=== PATIENT | female | born 1960 | race Caucasian/White ===

== ENCOUNTER 2019-01-24 16:29 | Inpatient (IN) | payer OTHER, MEDICAID ==
[2019-01-24 17:02] LABS: WHITE BLOOD COUNT 2.7 10^3/ul (4.8-10.8)
[2019-01-24 17:02] LABS: ADD MAN DIFF? NO; BASOPHILS % 1.1 % (0.0-2.0); HEMATOCRIT 42.6 % (37.0-47.0); HEMOGLOBIN 13.7 g/dl (12.0-16.0); LYMPHOCYTES % 38.5 % (15.0-51.0); MEAN CORPUSCULAR HEMOGLOBIN 31.7 pg (29.0-33.0); MEAN CORPUSCULAR HGB CONC 32.2 g/dl (32.0-37.0); MEAN CORPUSCULAR VOLUME 98.6 fl (82.0-101.0); MONOCYTE # 0.1 10^3/ul (0.3-0.9); MONOCYTES % 4.9 % (0.0-11.0); NEUTROPHIL # 1.5 10^3/ul (1.6-7.5); NEUTROPHILS % 55.1 % (39.0-77.0); PLATELET COUNT 151 10^3/UL (140-415); RED BLOOD COUNT 4.32 10^6/ul (4.20-5.40); RED CELL DISTRIBUTION WIDTH 15.7 % (11.5-14.5)
[2019-01-24 17:18] LABS: ANION GAP 9 (5-13); BLOOD UREA NITROGEN 14 mg/dl (7-20); CALCIUM 8.6 mg/dl (8.4-10.2); CARBON DIOXIDE 25 mmol/L (21-31); CHLORIDE 104 mmol/L (97-110); CREATININE 0.53 mg/dl (0.44-1.00); Estimated GFR > 60 mL/min (>60); GLUCOSE 114 mg/dl (70-220); POTASSIUM 4.7 mmol/L (3.5-5.1); SODIUM 138 mmol/L (135-144)
[2019-01-24 17:21] LABS: INR 0.96; PROTIME 12.9 Sec (11.9-14.9)
[2019-01-24 17:30] LABS: B-TYPE NATRIURETIC PEPTIDE 57 PG/ML (0-125); TROPONIN-I < 0.012 ng/ml (0.000-0.120)
[2019-01-24 18:01] LABS: PARTIAL THROMBOPLASTIN TIME 97.9 Sec (23.0-35.0)
[2019-01-24] MEDS: SOD CHLORIDE 0.9% 100 ML (18:11)
[2019-01-24] MEDS: IODIXANOL LOCM 100 ML BTL (18:11)
[2019-01-24 18:33] LABS: AADO2 Arterial 73.9 mmHg (7.0-24.0); Allen Test ACCEPTAB; Arterial Base Excess -3.8 mmol/L (-3.0-3); Arterial Blood Gas Oxygen Sat 91.7 mmHG (95.0-98.0); Arterial COHb 0.6 % (0.0-3.0); Arterial Fraction of Oxyhgb 90.9 % (93.0-99.0); Arterial HCO3 21.6 mmol/L (22.0-26.0); Arterial MetHb 0.3 % (0.0-1.5); Arterial pCO2 40.7 mmhg (35-45); MODE NASAL CANNULA; Site Right Radial
[2019-01-24] MEDS: LEVOFLOXACIN 750MG/D5W (PMX) 150 ML IVPB (18:42)
[2019-01-24] MEDS: FUROSEMIDE 40 MG INJ IV (18:43)
[2019-01-24] MEDS ORDERED: ACETAMINOPHEN 325 MG TAB PO (19:30)
[2019-01-24] MEDS ORDERED: ONDANSETRON 4 MG INJ IV (19:30)
[2019-01-24] MEDS: BENAZEPRIL 5 MG TAB PO (23:00)
[2019-01-24] MEDS ORDERED: ACETAMINOPHEN 500 MG TAB PO (23:00)
[2019-01-24] MEDS: AMLODIPINE 5 MG TAB PO (23:00)
[2019-01-24] MEDS: METOPROLOL 50 MG TAB PO (23:00)
[2019-01-24 23:59] LABS: LACTIC ACID 1.1 mmol/L (0.5-2.0)
[2019-01-25 00:12] LABS: IRON 94 ug/dl (35-150)
[2019-01-25 00:13] LABS: MAGNESIUM 1.7 mg/dl (1.7-2.5)
[2019-01-25 00:13] LABS: CREATINE KINASE 21 IU/L (23-200); LIPASE 30 U/L (23-300)
[2019-01-25] MEDS: DOCUSATE SODIUM 100 MG CAP PO ×3 (00:16→21:00)
[2019-01-25] MEDS: AMLODIPINE 5 MG TAB PO ×3 (00:16→21:00)
[2019-01-25] MEDS: FUROSEMIDE 40 MG INJ IV ×3 (00:16→18:29)
[2019-01-25] MEDS: BENAZEPRIL 5 MG TAB PO ×3 (00:16→21:00)
[2019-01-25] MEDS: METOPROLOL 50 MG TAB PO ×3 (00:17→21:00)
[2019-01-25 00:21] LABS: % IRON SATURATION 34 % SAT (22-52); TOTAL IRON BINDING CAPACITY 277 ug/dl (241-421)
[2019-01-25 00:24] LABS: CK INDEX 1.2; CK-MB 0.25 ng/ml (0.0-2.4); TROPONIN-I < 0.012 ng/ml (0.000-0.120)
[2019-01-25 00:43] LABS: THYROID STIMULATING HORMONE 0.368 MIU/L (0.465-4.680)
[2019-01-25] MEDS ORDERED: oxyCODONE (CR) 20 MG TAB [oxyCONTIN] PO (01:20)
[2019-01-25] MEDS: PANTOPRAZOLE (EC) 40 MG TAB PO (06:40)
[2019-01-25] MEDS: POLYETHYLENE GLYCOL 17 GM PACKET PO ×3 (09:00→21:31)
[2019-01-25] MEDS: MAGNESIUM HYDROXIDE 30ML CUP PO (09:00)
[2019-01-25] MEDS: ESCITALOPRAM 10 MG TAB PO (09:00)
[2019-01-25] MEDS ORDERED: FUROSEMIDE 20 MG TAB PO (09:00)
[2019-01-25] MEDS: oxyCODONE (CR) 20 MG TAB [oxyCONTIN] PO ×2 (09:37→21:31)
[2019-01-25] MEDS: POTASSIUM CHLORIDE (SR) 20 MEQ TAB PO (09:37)
[2019-01-25] MEDS: ANASTROZOLE 1 MG TAB PO (10:33)
[2019-01-25] MEDS: LIDOCAINE 1% (MPF) 5 ML VIAL (13:46)
[2019-01-25 17:36] LABS: FLD PMN% 3.2 %; FLD RBC 1000 /uL; FLD WBC 381 /cmm
[2019-01-25 17:51] LABS: FLD CLARITY CLOUDY; FLD COLOR YELLOW
[2019-01-25 17:51] LABS: FLD TYPE PLEURAL
[2019-01-25 17:52] LABS: FLD MN% 96.8 %
[2019-01-25] MEDS ORDERED: VANCOMYCIN 1 GM (PMX) 250 ML IVPB (21:00)
[2019-01-25] MEDS: MAGNESIUM SULFATE 2 GM/50 ML 50 ML IVPB (21:31)
[2019-01-25] MEDS: VANCOMYCIN HCL 1.5 GM in SOD CHLORIDE 0.9% 250 ML IVPB (23:46)
[2019-01-26] MEDS: VANCOMYCIN 750 MG (PMX) 250 ML IVPB ×3 (05:35→21:20)
[2019-01-26] MEDS: FUROSEMIDE 40 MG INJ IV ×2 (05:35→17:19)
[2019-01-26] MEDS: PANTOPRAZOLE (EC) 40 MG TAB PO (07:47)
[2019-01-26 08:27] LABS: ADD MAN DIFF? NO
[2019-01-26 08:31] LABS: ABNORMAL IP MESSAGE 1; BASOPHILS % 1.5 % (0.0-2.0); HEMATOCRIT 38.5 % (37.0-47.0); HEMOGLOBIN 12.7 g/dl (12.0-16.0); LYMPHOCYTES # 1.1 10^3/ul (0.8-2.9); LYMPHOCYTES % 55.2 % (15.0-51.0); MEAN CORPUSCULAR HEMOGLOBIN 32.8 pg (29.0-33.0); MEAN CORPUSCULAR VOLUME 99.5 fl (82.0-101.0); MONOCYTE # 0.2 10^3/ul (0.3-0.9); MONOCYTES % 11.9 % (0.0-11.0); NEUTROPHIL # 0.6 10^3/ul (1.6-7.5); NEUTROPHILS % 30.9 % (39.0-77.0); PLATELET COUNT 137 10^3/UL (140-415); RED BLOOD COUNT 3.87 10^6/ul (4.20-5.40); RED CELL DISTRIBUTION WIDTH 15.7 % (11.5-14.5)
[2019-01-26 08:31] LABS: WHITE BLOOD COUNT 1.9 10^3/ul (4.8-10.8)
[2019-01-26 08:37] LABS: POSITIVE DIFF @See below
[2019-01-26 08:44] LABS: ALANINE AMINOTRANSFERASE 31 IU/L (13-69); ALBUMIN/GLOBULIN RATIO 1.03; ALKALINE PHOSPHATASE 64 IU/L (42-121); ANION GAP 6 (5-13); ASPARTATE AMINO TRANSFERASE 43 IU/L (15-46); BILIRUBIN,INDIRECT 0.7 mg/dl (0-1.1); BILIRUBIN,TOTAL 0.7 mg/dl (0.2-1.3); BLOOD UREA NITROGEN 19 mg/dl (7-20); CALCIUM 8.1 mg/dl (8.4-10.2); CARBON DIOXIDE 32 mmol/L (21-31); CHLORIDE 100 mmol/L (97-110); CREATININE 0.65 mg/dl (0.44-1.00); Estimated GFR > 60 mL/min (>60); GLUCOSE 95 mg/dl (70-220); POTASSIUM 3.8 mmol/L (3.5-5.1); SODIUM 138 mmol/L (135-144); TOTAL PROTEIN 5.9 g/dl (6.1-8.1)
[2019-01-26] MEDS: POLYETHYLENE GLYCOL 17 GM PACKET PO ×3 (09:40→21:20)
[2019-01-26] MEDS: MAGNESIUM HYDROXIDE 30ML CUP PO (09:40)
[2019-01-26] MEDS: POTASSIUM CHLORIDE (SR) 20 MEQ TAB PO (09:41)
[2019-01-26] MEDS: METOPROLOL 50 MG TAB PO ×2 (09:41→21:00)
[2019-01-26] MEDS: DOCUSATE SODIUM 100 MG CAP PO ×2 (09:41→21:20)
[2019-01-26] MEDS: ESCITALOPRAM 10 MG TAB PO (09:41)
[2019-01-26] MEDS: oxyCODONE (CR) 20 MG TAB [oxyCONTIN] PO ×2 (09:44→21:21)
[2019-01-26] MEDS: ANASTROZOLE 1 MG TAB PO (09:46)
[2019-01-26] MEDS: MAGNESIUM SULFATE 2 GM/50 ML 50 ML IVPB (10:45)
[2019-01-26] MEDS: AMLODIPINE 5 MG TAB PO ×2 (12:20→21:00)
[2019-01-26] MEDS: BENAZEPRIL 5 MG TAB PO ×2 (12:30→21:00)
[2019-01-26 19:58] LABS: VANCOMYCIN,TROUGH 11.8 ug/ml (10.0-20.0)
[2019-01-26] MEDS: FILGRASTIM 300 MCG INJ SC (22:16)
[2019-01-27] MEDS: VANCOMYCIN 750 MG (PMX) 250 ML IVPB ×3 (05:39→21:14)
[2019-01-27] MEDS: FUROSEMIDE 40 MG INJ IV ×2 (06:00→18:47)
[2019-01-27 06:54] LABS: ADD MAN DIFF? NO
[2019-01-27 06:58] LABS: BASOPHIL # 0.1 10^3/ul (0.0-0.1); BASOPHILS % 0.5 % (0.0-2.0); HEMATOCRIT 37.3 % (37.0-47.0); HEMOGLOBIN 12.2 g/dl (12.0-16.0); LYMPHOCYTES # 1.2 10^3/ul (0.8-2.9); LYMPHOCYTES % 6.9 % (15.0-51.0); MEAN CORPUSCULAR HEMOGLOBIN 32.6 pg (29.0-33.0); MEAN CORPUSCULAR HGB CONC 32.7 g/dl (32.0-37.0); MEAN CORPUSCULAR VOLUME 99.7 fl (82.0-101.0); MEAN PLATELET VOLUME 9.9 fl (7.4-10.4); MONOCYTE # 0.4 10^3/ul (0.3-0.9); MONOCYTES % 2.2 % (0.0-11.0); NEUTROPHIL # 15.2 10^3/ul (1.6-7.5); NEUTROPHILS % 89.8 % (39.0-77.0); PLATELET COUNT 110 10^3/UL (140-415); RED BLOOD COUNT 3.74 10^6/ul (4.20-5.40); RED CELL DISTRIBUTION WIDTH 15.5 % (11.5-14.5)
[2019-01-27] MEDS: BENAZEPRIL 5 MG TAB PO (09:00)
[2019-01-27] MEDS: AMLODIPINE 5 MG TAB PO (09:27)
[2019-01-27] MEDS: POLYETHYLENE GLYCOL 17 GM PACKET PO ×3 (09:27→21:11)
[2019-01-27] MEDS: MAGNESIUM HYDROXIDE 30ML CUP PO (09:27)
[2019-01-27] MEDS: DOCUSATE SODIUM 100 MG CAP PO ×2 (09:27→21:00)
[2019-01-27] MEDS: POTASSIUM CHLORIDE (SR) 20 MEQ TAB PO (09:28)
[2019-01-27] MEDS: PANTOPRAZOLE (EC) 40 MG TAB PO (09:28)
[2019-01-27] MEDS: METOPROLOL 50 MG TAB PO (09:28)
[2019-01-27] MEDS: ESCITALOPRAM 10 MG TAB PO (09:28)
[2019-01-27] MEDS: ANASTROZOLE 1 MG TAB PO (09:38)
[2019-01-27] MEDS: MAGNESIUM SULFATE 2 GM/50 ML 50 ML IVPB (09:40)
[2019-01-27] MEDS: oxyCODONE (CR) 20 MG TAB [oxyCONTIN] PO ×2 (09:41→21:11)
[2019-01-27] MEDS: ONDANSETRON 4 MG TAB PO (14:34)
[2019-01-27] MEDS: FILGRASTIM 300 MCG INJ SC (17:00)
[2019-01-28] MEDS: VANCOMYCIN 750 MG (PMX) 250 ML IVPB (05:18)
[2019-01-28] MEDS: FUROSEMIDE 40 MG INJ IV ×2 (06:24→17:35)
[2019-01-28 06:30] LABS: ADD MAN DIFF? NO
[2019-01-28 06:51] LABS: ABNORMAL IP MESSAGE 1; BASOPHIL # 0.1 10^3/ul (0.0-0.1); BASOPHILS % 0.6 % (0.0-2.0); HEMATOCRIT 36.4 % (37.0-47.0); HEMOGLOBIN 11.5 g/dl (12.0-16.0); LYMPHOCYTES # 1.1 10^3/ul (0.8-2.9); LYMPHOCYTES % 13.5 % (15.0-51.0); MEAN CORPUSCULAR HEMOGLOBIN 32.5 pg (29.0-33.0); MEAN CORPUSCULAR HGB CONC 31.6 g/dl (32.0-37.0); MEAN CORPUSCULAR VOLUME 102.8 fl (82.0-101.0); MEAN PLATELET VOLUME 10.2 fl (7.4-10.4); MONOCYTE # 0.3 10^3/ul (0.3-0.9); MONOCYTES % 3.7 % (0.0-11.0); NEUTROPHIL # 6.4 10^3/ul (1.6-7.5); NEUTROPHILS % 81.7 % (39.0-77.0); PLATELET COUNT 91 10^3/UL (140-415); RED BLOOD COUNT 3.54 10^6/ul (4.20-5.40); RED CELL DISTRIBUTION WIDTH 15.4 % (11.5-14.5)
[2019-01-28 06:51] LABS: WHITE BLOOD COUNT 7.8 10^3/ul (4.8-10.8)
[2019-01-28 07:00] LABS: POSITIVE DIFF @See below
[2019-01-28] MEDS: PANTOPRAZOLE (EC) 40 MG TAB PO (07:38)
[2019-01-28] MEDS: DOCUSATE SODIUM 100 MG CAP PO ×2 (08:06→21:00)
[2019-01-28] MEDS: POTASSIUM CHLORIDE (SR) 20 MEQ TAB PO (08:06)
[2019-01-28] MEDS: oxyCODONE (CR) 20 MG TAB [oxyCONTIN] PO ×2 (08:07→21:42)
[2019-01-28] MEDS: MAGNESIUM SULFATE 2 GM/50 ML 50 ML IVPB (08:07)
[2019-01-28] MEDS: MAGNESIUM HYDROXIDE 30ML CUP PO (08:07)
[2019-01-28] MEDS: POLYETHYLENE GLYCOL 17 GM PACKET PO ×4 (08:07→21:00)
[2019-01-28] MEDS: ESCITALOPRAM 10 MG TAB PO (08:07)
[2019-01-28] MEDS: BENAZEPRIL 5 MG TAB PO ×2 (08:08→12:33)
[2019-01-28] MEDS: ANASTROZOLE 1 MG TAB PO (08:15)
[2019-01-28 15:16] LABS: TROPONIN-I < 0.012 ng/ml (0.000-0.120)
[2019-01-28 15:19] LABS: FREE T4 (FREE THYROXINE) 1.42 ng/dl (0.64-1.79)
[2019-01-28] MEDS: FILGRASTIM 300 MCG INJ SC (17:34)
[2019-01-29] MEDS: FUROSEMIDE 40 MG INJ IV ×2 (06:22→17:30)
[2019-01-29] MEDS: PANTOPRAZOLE (EC) 40 MG TAB PO (06:25)
[2019-01-29 06:46] LABS: ADD MAN DIFF? NO
[2019-01-29 06:51] LABS: BASOPHIL # 0.1 10^3/ul (0.0-0.1); BASOPHILS % 0.5 % (0.0-2.0); HEMATOCRIT 34.9 % (37.0-47.0); HEMOGLOBIN 11.3 g/dl (12.0-16.0); LYMPHOCYTES # 1.4 10^3/ul (0.8-2.9); LYMPHOCYTES % 10.7 % (15.0-51.0); MEAN CORPUSCULAR HEMOGLOBIN 32.7 pg (29.0-33.0); MEAN CORPUSCULAR HGB CONC 32.4 g/dl (32.0-37.0); MEAN CORPUSCULAR VOLUME 100.9 fl (82.0-101.0); MONOCYTE # 0.5 10^3/ul (0.3-0.9); MONOCYTES % 3.8 % (0.0-11.0); NEUTROPHIL # 10.9 10^3/ul (1.6-7.5); NEUTROPHILS % 83.9 % (39.0-77.0); PLATELET COUNT 104 10^3/UL (140-415); RED BLOOD COUNT 3.46 10^6/ul (4.20-5.40); RED CELL DISTRIBUTION WIDTH 15.6 % (11.5-14.5)
[2019-01-29 06:51] LABS: WHITE BLOOD COUNT 12.9 10^3/ul (4.8-10.8)
[2019-01-29] MEDS: oxyCODONE (CR) 20 MG TAB [oxyCONTIN] PO (08:04)
[2019-01-29] MEDS: ESCITALOPRAM 10 MG TAB PO (08:04)
[2019-01-29] MEDS: MAGNESIUM HYDROXIDE 30ML CUP PO (08:04)
[2019-01-29] MEDS: POLYETHYLENE GLYCOL 17 GM PACKET PO ×2 (08:04→12:10)
[2019-01-29] MEDS: DOCUSATE SODIUM 100 MG CAP PO (08:04)
[2019-01-29] MEDS: POTASSIUM CHLORIDE (SR) 20 MEQ TAB PO (08:04)
[2019-01-29] MEDS: ANASTROZOLE 1 MG TAB PO (08:09)
[2019-01-29] MEDS: ONDANSETRON 4 MG TAB PO (08:34)
[2019-01-29] MEDS: BARIUM SULF 2% 450 ML BTL (BERRY SMOOTHIE) PO (12:01)
[2019-01-29] MEDS: SOD CHLORIDE 0.9% 100 ML (12:54)
[2019-01-29] MEDS: IOHEXOL 300MG/ML 150 ML BTL (12:55)
[2019-01-29] MEDS: FILGRASTIM 300 MCG INJ SC (17:33)
== END 2019-01-29 18:46 | DRG 597 ==
LOC: TEL 20:16 → E/R 16:29
PROC: 4A033R1 Measurement of Arterial Saturation, Peripheral, Percutaneous Approach (ICD-10-PCS; 2019-01-24)
PROC: 0W993ZZ Drainage of Right Pleural Cavity, Percutaneous Approach (ICD-10-PCS; principal; 2019-01-25)
PROC: 0W9B3ZZ Drainage of Left Pleural Cavity, Percutaneous Approach (ICD-10-PCS; 2019-01-26)
PROC: 3E0234Z Introduction of Serum, Toxoid and Vaccine into Muscle, Percutaneous Approach (ICD-10-PCS; 2019-01-29)
DX: C50.912 Malignant neoplasm of unspecified site of left female breast (principal); I50.33 Acute on chronic diastolic (congestive) heart failure; C79.51 Secondary malignant neoplasm of bone; C78.7 Secondary malignant neoplasm of liver and intrahepatic bile duct; C78.00 Secondary malignant neoplasm of unspecified lung; J90 Pleural effusion, not elsewhere classified; E87.1 Hypo-osmolality and hyponatremia; M48.54XA Collapsed vertebra, not elsewhere classified, thoracic region, initial encounter for fracture; M84.559A Pathological fracture in neoplastic disease, hip, unspecified, initial encounter for fracture; D69.6 Thrombocytopenia, unspecified; D63.8 Anemia in other chronic diseases classified elsewhere; F41.9 Anxiety disorder, unspecified; F43.10 Post-traumatic stress disorder, unspecified; Z23 Encounter for immunization; R00.0 Tachycardia, unspecified; I11.0 Hypertensive heart disease with heart failure; E66.9 Obesity, unspecified; Z68.36 Body mass index [BMI] 36.0-36.9, adult; H52.10 Myopia, unspecified eye; D70.9 Neutropenia, unspecified; E88.09 Other disorders of plasma-protein metabolism, not elsewhere classified; I25.10 Atherosclerotic heart disease of native coronary artery without angina pectoris; E78.00 Pure hypercholesterolemia, unspecified; K21.9 Gastro-esophageal reflux disease without esophagitis; Z85.3 Personal history of malignant neoplasm of breast; M79.632 Pain in left forearm
CPT/HCPCS: 36415; 36600; 71045; 71275; 73510; 73600; 74177; 76705; 76942; 80048; 80053; 80202; 82042; 82550; 82553; 82803; 83540; 83605; 83690; 83735; 83880; 84439; 84443; 84484; 85025; 85610; 85730; 87040; 87070; 87102; 87116; 88104; 88305; 88341; 88342; 89051; 90686; 93005; 93306; 93971; 96374; 96375; 99291-25

== ENCOUNTER 2019-02-11 13:05 | Inpatient (IN) | payer OTHER ==
[2019-02-11 14:05] LABS: WHITE BLOOD COUNT 1.2 10^3/ul (4.8-10.8)
[2019-02-11 14:05] LABS: ABNORMAL IP MESSAGE 1; HEMATOCRIT 35.1 % (37.0-47.0); HEMOGLOBIN 11.5 g/dl (12.0-16.0); MEAN CORPUSCULAR HEMOGLOBIN 32.3 pg (29.0-33.0); MEAN CORPUSCULAR HGB CONC 32.8 g/dl (32.0-37.0); MEAN CORPUSCULAR VOLUME 98.6 fl (82.0-101.0); MEAN PLATELET VOLUME 9.7 fl (7.4-10.4); PLATELET COUNT 89 10^3/UL (140-415); POSITIVE DIFF @See below; RED BLOOD COUNT 3.56 10^6/ul (4.20-5.40); RED CELL DISTRIBUTION WIDTH 15.2 % (11.5-14.5)
[2019-02-11 14:06] LABS: ADD MAN DIFF? YES
[2019-02-11 14:23] LABS: ALANINE AMINOTRANSFERASE 23 IU/L (13-69); ALBUMIN 2.7 g/dl (3.3-4.9); ALBUMIN/GLOBULIN RATIO 1.03; ALKALINE PHOSPHATASE 73 IU/L (42-121); ANION GAP 6 (5-13); ASPARTATE AMINO TRANSFERASE 39 IU/L (15-46); BILIRUBIN,INDIRECT 0.6 mg/dl (0-1.1); BILIRUBIN,TOTAL 0.6 mg/dl (0.2-1.3); BLOOD UREA NITROGEN 13 mg/dl (7-20); CALCIUM 8.5 mg/dl (8.4-10.2); CARBON DIOXIDE 26 mmol/L (21-31); CHLORIDE 103 mmol/L (97-110); CREATININE 0.51 mg/dl (0.44-1.00); Estimated GFR > 60 mL/min (>60); GLUCOSE 121 mg/dl (70-220); POTASSIUM 4.5 mmol/L (3.5-5.1); SODIUM 135 mmol/L (135-144); TOTAL PROTEIN 5.3 g/dl (6.1-8.1)
[2019-02-11 14:24] LABS: INR 1.02; PROTIME 13.5 Sec (11.9-14.9); PT RATIO 1.1
[2019-02-11 14:29] LABS: ANISOCYTOSIS 1+ (0-0); BAND NEUTROPHILS % (M) 8 % (0-4); ERYTHROBLAST% (NRBC) (M) 1 % (0-0); LYMPHOCYTES #M 0.5 10^3/ul (0.8-2.9); LYMPHOCYTES % (M) 48 % (15-51); METAMYELOCYTES %M 1 % (0-0); MICROCYTOSIS 1+ (0-0); MONOCYTE #M 0.1 10^3/ul (0.3-0.9); MONOCYTES % (M) 15 % (0-11); PLATELET ESTIMATE DECREASED; POLYCHROMASIA 3+ (0-0); REACTIVE LYMPHOCYTES% (M) 5 % (0-0); SEG NEUT #M 0.3 10^3/ul (1.6-7.5); SEGMENTED NEUTROPHILS (M) % 23 % (39-77); SMUDGE%M 7 % (0-0)
[2019-02-11] MEDS ORDERED: ONDANSETRON 4 MG INJ IV (15:00)
[2019-02-11] MEDS ORDERED: ACETAMINOPHEN 325 MG TAB PO (15:00)
[2019-02-11] MEDS: ONDANSETRON 4 MG INJ IV (15:14)
[2019-02-11] MEDS: morphine 4 MG/ML VIAL IV (15:15)
[2019-02-11] MEDS: LIDOCAINE 1% (MPF) 5 ML VIAL (16:17)
[2019-02-11] MEDS: SODIUM CHLORIDE 0.9% 1L BAG IV* (17:17)
[2019-02-11] MEDS: CEFEPIME 2GM/50 ML (PMX) 50 ML IVPB (17:17)
[2019-02-11 17:42] LABS: LACTIC ACID 1.3 mmol/L (0.5-2.0)
[2019-02-11] MEDS: VANCOMYCIN 1 GM (PMX) 250 ML IVPB (18:33)
[2019-02-11] MEDS: AMLODIPINE 5 MG TAB PO (22:30)
[2019-02-11] MEDS: BENAZEPRIL 5 MG TAB PO (22:30)
[2019-02-11] MEDS: DOCUSATE SODIUM 100 MG CAP PO (22:42)
[2019-02-11] MEDS: oxyCODONE (CR) 20 MG TAB [oxyCONTIN] PO (22:43)
[2019-02-11] MEDS: POLYETHYLENE GLYCOL 17 GM PACKET PO (22:43)
[2019-02-11 23:27] LABS: IRON 75 ug/dl (35-150)
[2019-02-11 23:28] LABS: MAGNESIUM 1.8 mg/dl (1.7-2.5)
[2019-02-11 23:28] LABS: AMYLASE 32 U/L (11-123)
[2019-02-11 23:35] LABS: B-TYPE NATRIURETIC PEPTIDE 98 PG/ML (0-125)
[2019-02-11 23:36] LABS: % IRON SATURATION 33 % SAT (22-52); TOTAL IRON BINDING CAPACITY 224 ug/dl (241-421)
[2019-02-12 00:25] LABS: D-DIMER > 10000.00 ng/ml (<460)
[2019-02-12 05:13] LABS: ADD MAN DIFF? NO
[2019-02-12 05:14] LABS: WHITE BLOOD COUNT 1.3 10^3/ul (4.8-10.8)
[2019-02-12 05:14] LABS: ABNORMAL IP MESSAGE 1; BASOPHILS % 2.3 % (0.0-2.0); HEMATOCRIT 34.6 % (37.0-47.0); HEMOGLOBIN 11.1 g/dl (12.0-16.0); LYMPHOCYTES # 0.8 10^3/ul (0.8-2.9); LYMPHOCYTES % 62.1 % (15.0-51.0); MEAN CORPUSCULAR HGB CONC 32.1 g/dl (32.0-37.0); MEAN CORPUSCULAR VOLUME 99.7 fl (82.0-101.0); MEAN PLATELET VOLUME 10.4 fl (7.4-10.4); MONOCYTE # 0.3 10^3/ul (0.3-0.9); MONOCYTES % 19.7 % (0.0-11.0); NEUTROPHIL # 0.2 10^3/ul (1.6-7.5); NEUTROPHILS % 15.9 % (39.0-77.0); PLATELET COUNT 96 10^3/UL (140-415); RED BLOOD COUNT 3.47 10^6/ul (4.20-5.40); RED CELL DISTRIBUTION WIDTH 15.6 % (11.5-14.5)
[2019-02-12 05:27] LABS: POSITIVE DIFF @See below
[2019-02-12] MEDS: PANTOPRAZOLE (EC) 40 MG TAB PO (05:39)
[2019-02-12] MEDS: BENAZEPRIL 5 MG TAB PO ×2 (09:00→20:21)
[2019-02-12] MEDS: AMLODIPINE 5 MG TAB PO ×2 (09:00→20:21)
[2019-02-12] MEDS: DOCUSATE SODIUM 100 MG CAP PO ×2 (10:05→20:20)
[2019-02-12] MEDS: POLYETHYLENE GLYCOL 17 GM PACKET PO ×2 (10:05→20:21)
[2019-02-12] MEDS: POTASSIUM CHLORIDE (SR) 20 MEQ TAB PO (10:05)
[2019-02-12] MEDS: oxyCODONE (CR) 20 MG TAB [oxyCONTIN] PO ×2 (10:05→20:22)
[2019-02-12] MEDS: FUROSEMIDE 20 MG TAB PO (10:06)
[2019-02-12] MEDS: ESCITALOPRAM 10 MG TAB PO (10:06)
[2019-02-12] MEDS: ANASTROZOLE 1 MG TAB PO (10:08)
[2019-02-12] MEDS: MAGNESIUM HYDROXIDE 30ML CUP PO (10:11)
[2019-02-12] MEDS: ONDANSETRON 4 MG TAB PO (10:14)
[2019-02-12] MEDS: LIDOCAINE 1% (MPF) 5 ML VIAL (12:50)
[2019-02-12 16:16] LABS: ADD UMIC YES; UR ASCORBIC ACID 40 mg/dL (NEGATIVE); UR BILIRUBIN (Dip) NEGATIVE (NEGATIVE); UR BLOOD (Dip) NEGATIVE (NEGATIVE); UR CLARITY SLIGHTLY CLOUDY (CLEAR); UR COLOR AMBER (YELLOW); UR GLUCOSE (Dip) NEGATIVE (NEGATIVE); UR KETONES (Dip) NEGATIVE (NEGATIVE); UR LEUKOCYTE ESTERASE (Dip) TRACE Leu/ul (NEGATIVE); UR MUCUS MANY /HPF (NONE SEEN); UR NITRITE (Dip) NEGATIVE (NEGATIVE); UR RBC 2 /HPF (0-5); UR SPECIFIC GRAVITY (Dip) 1.026 (1.003-1.030); UR TOTAL PROTEIN (Dip) NEGATIVE (NEGATIVE); UR UROBILINOGEN (Dip) 1+ mg/dL (NEGATIVE); UR WBC 11 /HPF (0-5)
[2019-02-12] MEDS: FILGRASTIM 300 MCG INJ SC (18:43)
[2019-02-12] MEDS: FUROSEMIDE 20 MG INJ IV (20:20)
[2019-02-13 05:31] LABS: WHITE BLOOD COUNT 3.5 10^3/ul (4.8-10.8)
[2019-02-13 05:31] LABS: ABNORMAL IP MESSAGE 1; HEMATOCRIT 31.7 % (37.0-47.0); HEMOGLOBIN 10.4 g/dl (12.0-16.0); MEAN CORPUSCULAR HEMOGLOBIN 32.2 pg (29.0-33.0); MEAN CORPUSCULAR HGB CONC 32.8 g/dl (32.0-37.0); MEAN CORPUSCULAR VOLUME 98.1 fl (82.0-101.0); MEAN PLATELET VOLUME 10.1 fl (7.4-10.4); PLATELET COUNT 81 10^3/UL (140-415); RED BLOOD COUNT 3.23 10^6/ul (4.20-5.40); RED CELL DISTRIBUTION WIDTH 15.7 % (11.5-14.5)
[2019-02-13 06:00] LABS: POSITIVE DIFF @See below
[2019-02-13 06:01] LABS: ADD MAN DIFF? YES
[2019-02-13] MEDS: FUROSEMIDE 20 MG INJ IV ×2 (06:31→18:00)
[2019-02-13 07:47] LABS: ANISOCYTOSIS 2+ (0-0); BAND NEUTROPHILS #M 1.7 10^3/ul (0.0-0.6); BAND NEUTROPHILS % (M) 49 % (0-4); LYMPHOCYTES #M 0.7 10^3/ul (0.8-2.9); LYMPHOCYTES % (M) 21 % (15-51); MICROCYTOSIS 2+ (0-0); MONOCYTE #M 0.2 10^3/ul (0.3-0.9); MONOCYTES % (M) 8 % (0-11); PLATELET ESTIMATE DECREASED; POIKILOCYTOSIS 1+ (0-0); POLYCHROMASIA 1+ (0-0); REACTIVE LYMPHOCYTES% (M) 2 % (0-0); SEG NEUT #M 0.8 10^3/ul (1.6-7.5); SEGMENTED NEUTROPHILS (M) % 20 % (39-77); SMUDGE%M 5 % (0-0); SPHEROCYTES 1+ (0-0)
[2019-02-13] MEDS: PANTOPRAZOLE (EC) 40 MG TAB PO (09:08)
[2019-02-13] MEDS: POTASSIUM CHLORIDE (SR) 20 MEQ TAB PO (09:11)
[2019-02-13] MEDS: ESCITALOPRAM 10 MG TAB PO (09:13)
[2019-02-13] MEDS: DOCUSATE SODIUM 100 MG CAP PO ×2 (09:13→21:05)
[2019-02-13] MEDS: MAGNESIUM HYDROXIDE 30ML CUP PO (09:16)
[2019-02-13] MEDS: POLYETHYLENE GLYCOL 17 GM PACKET PO ×2 (09:18→21:00)
[2019-02-13] MEDS: ANASTROZOLE 1 MG TAB PO (09:22)
[2019-02-13] MEDS: BENAZEPRIL 5 MG TAB PO ×2 (09:26→21:00)
[2019-02-13] MEDS: AMLODIPINE 5 MG TAB PO (09:28)
[2019-02-13] MEDS: oxyCODONE (CR) 20 MG TAB [oxyCONTIN] PO ×2 (09:47→21:05)
[2019-02-13] MEDS: ONDANSETRON 4 MG TAB PO (16:51)
[2019-02-13] MEDS: FILGRASTIM-AAFI 300 MCG/0.5 ML SYRINGE SC (16:54)
[2019-02-13 20:06] LABS: FREE T4 (FREE THYROXINE) 1.54 ng/dl (0.64-1.79)
[2019-02-13] MEDS: FUROSEMIDE 40 MG INJ IV (21:05)
[2019-02-13] MEDS: ALBUMIN HUMAN 25% 50 ML IV (21:08)
[2019-02-14 02:13] LABS: TROPONIN-I < 0.012 ng/ml (0.000-0.120)
[2019-02-14 05:29] LABS: ABNORMAL IP MESSAGE 1; HEMATOCRIT 30.4 % (37.0-47.0); HEMOGLOBIN 9.8 g/dl (12.0-16.0); MEAN CORPUSCULAR HEMOGLOBIN 32.2 pg (29.0-33.0); MEAN CORPUSCULAR HGB CONC 32.2 g/dl (32.0-37.0); MEAN PLATELET VOLUME 10.4 fl (7.4-10.4); PLATELET COUNT 87 10^3/UL (140-415); RED BLOOD COUNT 3.04 10^6/ul (4.20-5.40); RED CELL DISTRIBUTION WIDTH 15.9 % (11.5-14.5)
[2019-02-14 05:29] LABS: WHITE BLOOD COUNT 4.7 10^3/ul (4.8-10.8)
[2019-02-14 05:45] LABS: TROPONIN-I < 0.012 ng/ml (0.000-0.120)
[2019-02-14 05:46] LABS: ADD MAN DIFF? YES; POSITIVE DIFF @See below
[2019-02-14] MEDS: FUROSEMIDE 40 MG INJ IV ×2 (06:00→18:05)
[2019-02-14] MEDS: PANTOPRAZOLE (EC) 40 MG TAB PO (06:00)
[2019-02-14] MEDS ORDERED: FUROSEMIDE 40 MG INJ IV (06:00)
[2019-02-14] MEDS: AMLODIPINE 5 MG TAB PO (09:00)
[2019-02-14] MEDS: BENAZEPRIL 5 MG TAB PO ×2 (09:00→21:00)
[2019-02-14] MEDS: POLYETHYLENE GLYCOL 17 GM PACKET PO ×2 (09:00→21:00)
[2019-02-14] MEDS: ESCITALOPRAM 10 MG TAB PO (09:46)
[2019-02-14] MEDS: DOCUSATE SODIUM 100 MG CAP PO ×2 (09:46→21:00)
[2019-02-14] MEDS: POTASSIUM CHLORIDE (SR) 20 MEQ TAB PO (09:46)
[2019-02-14] MEDS: ONDANSETRON 4 MG TAB PO (09:47)
[2019-02-14] MEDS: oxyCODONE (CR) 20 MG TAB [oxyCONTIN] PO ×2 (09:47→21:41)
[2019-02-14 09:50] LABS: ANISOCYTOSIS 1+ (0-0); BAND NEUTROPHILS #M 2.4 10^3/ul (0.0-0.6); BAND NEUTROPHILS % (M) 53 % (0-4); BURR CELLS 1+ (0-0); GIANT THROMBO% (M) 4 % (0-0); LYMPHOCYTES #M 0.7 10^3/ul (0.8-2.9); LYMPHOCYTES % (M) 16 % (15-51); METAMYELOCYTES #M 0.1 10^3/ul (0.0-0.0); METAMYELOCYTES %M 3 % (0-0); MICROCYTOSIS 1+ (0-0); MONOCYTE #M 0.1 10^3/ul (0.3-0.9); MONOCYTES % (M) 4 % (0-11); MYELOCYTES #M 0.4 10^3/ul (0.0-0.0); MYELOCYTES % (M) 9 % (0-0); OVALOCYTES 1+ (0-0); PLATELET ESTIMATE SIG DECREASED; POIKILOCYTOSIS 1+ (0-0); POLYCHROMASIA 3+ (0-0); REACTIVE LYMPHOCYTES #M 0.1 10^3/ul (0.0-0.0); REACTIVE LYMPHOCYTES% (M) 4 % (0-0); SEG NEUT #M 0.6 10^3/ul (1.6-7.5); SEGMENTED NEUTROPHILS (M) % 11 % (39-77); SMUDGE%M 13 % (0-0); TOXIC GRANULATION 2+ (0-0)
[2019-02-14] MEDS: ANASTROZOLE 1 MG TAB PO (09:50)
[2019-02-14] MEDS: MAGNESIUM HYDROXIDE 30ML CUP PO (09:50)
[2019-02-14 12:37] LABS: TROPONIN-I < 0.012 ng/ml (0.000-0.120)
[2019-02-14] MEDS: ALBUMIN HUMAN 25% 50 ML IV (21:35)
[2019-02-15 05:36] LABS: ABNORMAL IP MESSAGE 1; HEMATOCRIT 29.1 % (37.0-47.0); HEMOGLOBIN 9.5 g/dl (12.0-16.0); MEAN CORPUSCULAR HEMOGLOBIN 32.1 pg (29.0-33.0); MEAN CORPUSCULAR HGB CONC 32.6 g/dl (32.0-37.0); MEAN CORPUSCULAR VOLUME 98.3 fl (82.0-101.0); MEAN PLATELET VOLUME 10.3 fl (7.4-10.4); PLATELET COUNT 88 10^3/UL (140-415); RED BLOOD COUNT 2.96 10^6/ul (4.20-5.40); RED CELL DISTRIBUTION WIDTH 15.8 % (11.5-14.5)
[2019-02-15 05:43] LABS: ADD MAN DIFF? YES; POSITIVE DIFF @See below
[2019-02-15] MEDS: PANTOPRAZOLE (EC) 40 MG TAB PO (05:52)
[2019-02-15] MEDS: METOLAZONE 2.5 MG TAB PO ×2 (05:52→20:12)
[2019-02-15] MEDS: FUROSEMIDE 40 MG INJ IV ×2 (06:28→17:47)
[2019-02-15 08:40] LABS: ANISOCYTOSIS 1+ (0-0); BAND NEUTROPHILS #M 1.8 10^3/ul (0.0-0.6); BAND NEUTROPHILS % (M) 46 % (0-4); BASOPHILS % (M) 1 % (0-2); LYMPHOCYTES #M 0.8 10^3/ul (0.8-2.9); LYMPHOCYTES % (M) 20 % (15-51); METAMYELOCYTES %M 1 % (0-0); MICROCYTOSIS 1+ (0-0); MONOCYTE #M 0.2 10^3/ul (0.3-0.9); MONOCYTES % (M) 5 % (0-11); MYELOCYTES % (M) 1 % (0-0); PLATELET ESTIMATE DECREASED; POLYCHROMASIA 2+ (0-0); REACTIVE LYMPHOCYTES #M 0.4 10^3/ul (0.0-0.0); REACTIVE LYMPHOCYTES% (M) 10 % (0-0); SEG NEUT #M 0.7 10^3/ul (1.6-7.5); SEGMENTED NEUTROPHILS (M) % 16 % (39-77); SMUDGE%M 6 % (0-0); SPHEROCYTES 1+ (0-0); TOXIC GRANULATION 1+ (0-0)
[2019-02-15] MEDS: MAGNESIUM HYDROXIDE 30ML CUP PO (08:53)
[2019-02-15] MEDS: ESCITALOPRAM 10 MG TAB PO (08:53)
[2019-02-15] MEDS: POLYETHYLENE GLYCOL 17 GM PACKET PO ×2 (08:53→20:13)
[2019-02-15] MEDS: oxyCODONE (CR) 20 MG TAB [oxyCONTIN] PO ×2 (08:54→20:12)
[2019-02-15] MEDS: POTASSIUM CHLORIDE (SR) 20 MEQ TAB PO (08:54)
[2019-02-15] MEDS: DOCUSATE SODIUM 100 MG CAP PO ×2 (08:54→20:13)
[2019-02-15] MEDS: BENAZEPRIL 5 MG TAB PO ×2 (08:58→20:14)
[2019-02-15] MEDS: ANASTROZOLE 1 MG TAB PO (09:00)
[2019-02-15] MEDS: ALBUMIN HUMAN 25% 50 ML IV (17:02)
[2019-02-15] MEDS: SPIRONOLACTONE 50 MG TAB PO (19:09)
[2019-02-16 05:20] LABS: WHITE BLOOD COUNT 4.1 10^3/ul (4.8-10.8)
[2019-02-16 05:20] LABS: HEMATOCRIT 29.7 % (37.0-47.0); HEMOGLOBIN 9.8 g/dl (12.0-16.0); MEAN CORPUSCULAR HEMOGLOBIN 31.9 pg (29.0-33.0); MEAN CORPUSCULAR VOLUME 96.7 fl (82.0-101.0); MEAN PLATELET VOLUME 9.8 fl (7.4-10.4); PLATELET COUNT 106 10^3/UL (140-415); RED BLOOD COUNT 3.07 10^6/ul (4.20-5.40); RED CELL DISTRIBUTION WIDTH 15.8 % (11.5-14.5)
[2019-02-16 05:46] LABS: ADD MAN DIFF? YES; ALANINE AMINOTRANSFERASE 22 IU/L (13-69); ALBUMIN 2.8 g/dl (3.3-4.9); ALBUMIN/GLOBULIN RATIO 1.16; ALKALINE PHOSPHATASE 67 IU/L (42-121); ANION GAP 8 (5-13); ASPARTATE AMINO TRANSFERASE 32 IU/L (15-46); BILIRUBIN,INDIRECT 0.5 mg/dl (0-1.1); BILIRUBIN,TOTAL 0.5 mg/dl (0.2-1.3); BLOOD UREA NITROGEN 13 mg/dl (7-20); CALCIUM 8.2 mg/dl (8.4-10.2); CARBON DIOXIDE 34 mmol/L (21-31); CHLORIDE 90 mmol/L (97-110); CREATININE 0.66 mg/dl (0.44-1.00); Estimated GFR > 60 mL/min (>60); GLUCOSE 99 mg/dl (70-220); POSITIVE DIFF @See below; SODIUM 132 mmol/L (135-144); TOTAL PROTEIN 5.2 g/dl (6.1-8.1)
[2019-02-16] MEDS: FUROSEMIDE 40 MG INJ IV ×2 (06:28→18:02)
[2019-02-16 07:36] LABS: ANISOCYTOSIS 2+ (0-0); BAND NEUTROPHILS #M 1.1 10^3/ul (0.0-0.6); BAND NEUTROPHILS % (M) 28 % (0-4); ERYTHROBLAST% (NRBC) (M) 3 % (0-0); LYMPHOCYTES #M 0.7 10^3/ul (0.8-2.9); LYMPHOCYTES % (M) 19 % (15-51); MICROCYTOSIS 2+ (0-0); MONOCYTE #M 0.3 10^3/ul (0.3-0.9); MONOCYTES % (M) 9 % (0-11); MYELOCYTES % (M) 2 % (0-0); OVALOCYTES 1+ (0-0); PLATELET ESTIMATE DECREASED; POIKILOCYTOSIS 1+ (0-0); POLYCHROMASIA 3+ (0-0); REACTIVE LYMPHOCYTES #M 0.5 10^3/ul (0.0-0.0); REACTIVE LYMPHOCYTES% (M) 13 % (0-0); SEG NEUT #M 1.2 10^3/ul (1.6-7.5); SEGMENTED NEUTROPHILS (M) % 29 % (39-77); SMUDGE%M 13 % (0-0); STOMATOCYTES 1+ (0-0)
[2019-02-16] MEDS: DOCUSATE SODIUM 100 MG CAP PO ×2 (08:36→20:46)
[2019-02-16] MEDS: oxyCODONE (CR) 20 MG TAB [oxyCONTIN] PO ×2 (08:36→20:53)
[2019-02-16] MEDS: POLYETHYLENE GLYCOL 17 GM PACKET PO ×2 (08:36→21:00)
[2019-02-16] MEDS: ESCITALOPRAM 10 MG TAB PO (08:37)
[2019-02-16] MEDS: PANTOPRAZOLE (EC) 40 MG TAB PO (08:37)
[2019-02-16] MEDS: POTASSIUM CHLORIDE (SR) 20 MEQ TAB PO (08:38)
[2019-02-16] MEDS: BENAZEPRIL 5 MG TAB PO ×2 (08:38→20:48)
[2019-02-16] MEDS: SPIRONOLACTONE 50 MG TAB PO (08:39)
[2019-02-16] MEDS: METOLAZONE 2.5 MG TAB PO ×2 (08:40→20:47)
[2019-02-16] MEDS: ANASTROZOLE 1 MG TAB PO (08:42)
[2019-02-16] MEDS: MAGNESIUM HYDROXIDE 30ML CUP PO (08:45)
[2019-02-16] MEDS: IOHEXOL 300MG/ML 150 ML BTL (11:25)
[2019-02-16] MEDS: SOD CHLORIDE 0.9% 100 ML (11:25)
[2019-02-16] MEDS: ACETAMINOPHEN 500 MG TAB PO (14:29)
[2019-02-17] MEDS: FUROSEMIDE 40 MG INJ IV ×2 (05:34→17:40)
[2019-02-17] MEDS: PANTOPRAZOLE (EC) 40 MG TAB PO (08:31)
[2019-02-17] MEDS: oxyCODONE (CR) 20 MG TAB [oxyCONTIN] PO (09:14)
[2019-02-17] MEDS: ANASTROZOLE 1 MG TAB PO (09:15)
[2019-02-17] MEDS: METOLAZONE 2.5 MG TAB PO ×2 (09:20→20:47)
[2019-02-17] MEDS: POTASSIUM CHLORIDE (SR) 20 MEQ TAB PO ×3 (11:09→20:59)
[2019-02-17] MEDS: SPIRONOLACTONE 50 MG TAB PO (11:10)
[2019-02-17] MEDS: ESCITALOPRAM 10 MG TAB PO (11:10)
[2019-02-17] MEDS: BENAZEPRIL 5 MG TAB PO ×2 (11:20→20:48)
[2019-02-17] MEDS: DOCUSATE SODIUM 100 MG CAP PO ×2 (11:21→20:47)
[2019-02-17] MEDS: POLYETHYLENE GLYCOL 17 GM PACKET PO ×2 (11:21→20:59)
[2019-02-17] MEDS: MAGNESIUM HYDROXIDE 30ML CUP PO (11:21)
[2019-02-17 12:46] LABS: MAGNESIUM 1.6 mg/dl (1.7-2.5)
[2019-02-17] MEDS: ONDANSETRON 4 MG TAB PO (14:01)
[2019-02-17] MEDS: MAGNESIUM SULFATE 2 GM/50 ML 50 ML IVPB (15:42)
[2019-02-17] MEDS: ALBUTEROL/IPRATROPIUM (NEB) 3 ML AMP HHN (16:09)
[2019-02-17] MEDS: oxyCODONE (CR) 10 MG TAB [oxyCONTIN] PO (20:48)
[2019-02-17] MEDS: ONDANSETRON 4 MG INJ IV (20:50)
[2019-02-18] MEDS: ONDANSETRON 4 MG INJ IV (05:44)
[2019-02-18] MEDS: FUROSEMIDE 40 MG INJ IV ×2 (05:44→17:36)
[2019-02-18] MEDS: PANTOPRAZOLE (EC) 40 MG TAB PO (05:44)
[2019-02-18 06:13] LABS: ABNORMAL IP MESSAGE 1; HEMATOCRIT 32.4 % (37.0-47.0); HEMOGLOBIN 10.7 g/dl (12.0-16.0); MEAN CORPUSCULAR HEMOGLOBIN 31.6 pg (29.0-33.0); MEAN CORPUSCULAR VOLUME 95.6 fl (82.0-101.0); MEAN PLATELET VOLUME 9.5 fl (7.4-10.4); NUCLEATED RED BLOOD CELLS% 2.4 /100WBC (0.0-0.0); PLATELET COUNT 138 10^3/UL (140-415); RED BLOOD COUNT 3.39 10^6/ul (4.20-5.40); RED CELL DISTRIBUTION WIDTH 16.5 % (11.5-14.5)
[2019-02-18 06:13] LABS: WHITE BLOOD COUNT 4.6 10^3/ul (4.8-10.8)
[2019-02-18 06:19] LABS: ADD MAN DIFF? YES; POSITIVE DIFF @See below
[2019-02-18 06:43] LABS: ALANINE AMINOTRANSFERASE 20 IU/L (13-69); ALBUMIN 2.8 g/dl (3.3-4.9); ALBUMIN/GLOBULIN RATIO 1.16; ALKALINE PHOSPHATASE 62 IU/L (42-121); ASPARTATE AMINO TRANSFERASE 34 IU/L (15-46); BILIRUBIN,INDIRECT 0.7 mg/dl (0-1.1); BILIRUBIN,TOTAL 0.7 mg/dl (0.2-1.3); BLOOD UREA NITROGEN 9 mg/dl (7-20); CALCIUM 8.2 mg/dl (8.4-10.2); CHLORIDE 82 mmol/L (97-110); CHOL/HDL RATIO 6.2 RATIO; CHOLESTEROL 131 mg/dl (100-200); CREATININE 0.63 mg/dl (0.44-1.00); Estimated GFR > 60 mL/min (>60); GLUCOSE 99 mg/dl (70-220); HDL CHOLESTEROL 21 mg/dl (37-92); LDL CHOLESTEROL,CALCULATED 74 mg/dl; SODIUM 129 mmol/L (135-144); TOTAL PROTEIN 5.2 g/dl (6.1-8.1); TRIGLYCERIDES 178 mg/dl (0-149)
[2019-02-18 06:49] LABS: ANION GAP 9 (5-13)
[2019-02-18 06:51] LABS: CARBON DIOXIDE 38 mmol/L (21-31)
[2019-02-18 06:53] LABS: POTASSIUM 2.9 mmol/L (3.5-5.1)
[2019-02-18] MEDS: POTASSIUM CHLORIDE (SR) 20 MEQ TAB PO ×5 (08:58→20:42)
[2019-02-18] MEDS: MAGNESIUM HYDROXIDE 30ML CUP PO (08:58)
[2019-02-18] MEDS: DOCUSATE SODIUM 100 MG CAP PO ×2 (08:58→20:41)
[2019-02-18] MEDS: POLYETHYLENE GLYCOL 17 GM PACKET PO ×2 (08:58→20:41)
[2019-02-18] MEDS: oxyCODONE (CR) 10 MG TAB [oxyCONTIN] PO ×2 (08:59→20:41)
[2019-02-18] MEDS: BENAZEPRIL 5 MG TAB PO (08:59)
[2019-02-18] MEDS: MAGNESIUM SULFATE 2 GM/50 ML 50 ML IVPB (08:59)
[2019-02-18] MEDS: ESCITALOPRAM 10 MG TAB PO (08:59)
[2019-02-18] MEDS: SPIRONOLACTONE 50 MG TAB PO (09:01)
[2019-02-18] MEDS: METOLAZONE 2.5 MG TAB PO ×2 (09:01→20:42)
[2019-02-18] MEDS: ANASTROZOLE 1 MG TAB PO (09:09)
[2019-02-18] MEDS: ONDANSETRON 4 MG TAB PO (09:11)
[2019-02-18 09:23] LABS: ANISOCYTOSIS 1+ (0-0); BAND NEUTROPHILS #M 0.3 10^3/ul (0.0-0.6); BAND NEUTROPHILS % (M) 7 % (0-4); BASOPHILS % (M) 1 % (0-2); ERYTHROBLAST% (NRBC) (M) 2 % (0-0); GIANT THROMBO% (M) 4 % (0-0); LYMPHOCYTES #M 0.7 10^3/ul (0.8-2.9); LYMPHOCYTES % (M) 16 % (15-51); METAMYELOCYTES %M 1 % (0-0); MICROCYTOSIS 1+ (0-0); MONOCYTE #M 1.5 10^3/ul (0.3-0.9); MONOCYTES % (M) 34 % (0-11); MYELOCYTES % (M) 1 % (0-0); OVALOCYTES 1+ (0-0); PLATELET ESTIMATE DECREASED; POLYCHROMASIA 2+ (0-0); PROMYELOCYTES % (M) 1 % (0-0); SEG NEUT #M 1.8 10^3/ul (1.6-7.5); SEGMENTED NEUTROPHILS (M) % 39 % (39-77); SMUDGE%M 33 % (0-0)
[2019-02-18] MEDS: LIDOCAINE 1% (MPF) 5 ML VIAL (11:44)
[2019-02-18] MEDS: ALBUMIN HUMAN 25% 50 ML IV (14:27)
[2019-02-18] MEDS: OLOPATADINE 0.1% 5 ML OPH BOTH EYES (20:43)
[2019-02-19] MEDS: FUROSEMIDE 40 MG INJ IV ×2 (05:00→17:26)
[2019-02-19] MEDS: PANTOPRAZOLE (EC) 40 MG TAB PO ×2 (05:00→08:47)
[2019-02-19] MEDS: OLOPATADINE 0.1% 5 ML OPH BOTH EYES ×2 (08:44→21:31)
[2019-02-19] MEDS: MAGNESIUM HYDROXIDE 30ML CUP PO (08:45)
[2019-02-19] MEDS: MAGNESIUM SULFATE 2 GM/50 ML 50 ML IVPB (08:45)
[2019-02-19] MEDS: POLYETHYLENE GLYCOL 17 GM PACKET PO ×2 (08:45→21:00)
[2019-02-19] MEDS: oxyCODONE (CR) 10 MG TAB [oxyCONTIN] PO ×2 (08:46→21:33)
[2019-02-19] MEDS: DOCUSATE SODIUM 100 MG CAP PO ×2 (08:46→21:30)
[2019-02-19] MEDS: ESCITALOPRAM 10 MG TAB PO (08:46)
[2019-02-19] MEDS: BENAZEPRIL 5 MG TAB PO (08:47)
[2019-02-19] MEDS: SPIRONOLACTONE 50 MG TAB PO (08:48)
[2019-02-19] MEDS: LORATADINE 10 MG TAB PO (08:48)
[2019-02-19] MEDS: POTASSIUM CHLORIDE (SR) 20 MEQ TAB PO ×2 (08:49→21:32)
[2019-02-19] MEDS: METOLAZONE 2.5 MG TAB PO ×2 (09:00→21:33)
[2019-02-19] MEDS: ANASTROZOLE 1 MG TAB PO (09:11)
[2019-02-20] MEDS: FUROSEMIDE 40 MG INJ IV ×3 (05:37→18:00)
[2019-02-20] MEDS: POLYETHYLENE GLYCOL 17 GM PACKET PO ×2 (09:00→20:42)
[2019-02-20] MEDS: DOCUSATE SODIUM 100 MG CAP PO ×2 (09:05→20:41)
[2019-02-20] MEDS: SPIRONOLACTONE 50 MG TAB PO (09:05)
[2019-02-20] MEDS: POTASSIUM CHLORIDE (SR) 20 MEQ TAB PO ×2 (09:06→20:41)
[2019-02-20] MEDS: LORATADINE 10 MG TAB PO (09:06)
[2019-02-20] MEDS: MAGNESIUM HYDROXIDE 30ML CUP PO (09:07)
[2019-02-20] MEDS: METOLAZONE 2.5 MG TAB PO ×2 (09:07→20:42)
[2019-02-20] MEDS: BENAZEPRIL 5 MG TAB PO (09:07)
[2019-02-20] MEDS: ANASTROZOLE 1 MG TAB PO (09:16)
[2019-02-20] MEDS: ESCITALOPRAM 10 MG TAB PO (09:18)
[2019-02-20] MEDS: oxyCODONE (CR) 10 MG TAB [oxyCONTIN] PO ×2 (09:18→20:43)
[2019-02-20] MEDS: OLOPATADINE 0.1% 5 ML OPH BOTH EYES ×2 (09:22→20:40)
[2019-02-20] MEDS: LIDOCAINE 1% (MPF) 5 ML VIAL (11:23)
[2019-02-21] MEDS: FUROSEMIDE 40 MG INJ IV ×2 (05:30→17:45)
[2019-02-21] MEDS: ESCITALOPRAM 10 MG TAB PO (08:44)
[2019-02-21] MEDS: MAGNESIUM HYDROXIDE 30ML CUP PO (08:44)
[2019-02-21] MEDS: POLYETHYLENE GLYCOL 17 GM PACKET PO ×2 (08:44→21:00)
[2019-02-21] MEDS: POTASSIUM CHLORIDE (SR) 20 MEQ TAB PO ×2 (08:45→20:34)
[2019-02-21] MEDS: DOCUSATE SODIUM 100 MG CAP PO ×2 (08:45→20:33)
[2019-02-21] MEDS: LORATADINE 10 MG TAB PO (08:45)
[2019-02-21] MEDS: PANTOPRAZOLE (EC) 40 MG TAB PO (08:45)
[2019-02-21] MEDS: ANASTROZOLE 1 MG TAB PO (08:48)
[2019-02-21] MEDS: oxyCODONE (CR) 10 MG TAB [oxyCONTIN] PO ×2 (08:49→20:40)
[2019-02-21] MEDS: METOLAZONE 2.5 MG TAB PO ×2 (08:50→20:37)
[2019-02-21] MEDS: SPIRONOLACTONE 50 MG TAB PO (08:52)
[2019-02-21] MEDS: BENAZEPRIL 5 MG TAB PO (08:52)
[2019-02-21] MEDS: OLOPATADINE 0.1% 5 ML OPH BOTH EYES ×2 (09:07→20:38)
[2019-02-22] MEDS: FUROSEMIDE 40 MG INJ IV ×2 (05:39→18:10)
[2019-02-22] MEDS: PANTOPRAZOLE (EC) 40 MG TAB PO (05:39)
[2019-02-22] MEDS: OLOPATADINE 0.1% 5 ML OPH BOTH EYES ×2 (08:29→20:39)
[2019-02-22] MEDS: POLYETHYLENE GLYCOL 17 GM PACKET PO ×2 (08:29→21:00)
[2019-02-22] MEDS: ESCITALOPRAM 10 MG TAB PO (08:29)
[2019-02-22] MEDS: SPIRONOLACTONE 50 MG TAB PO (08:29)
[2019-02-22] MEDS: DOCUSATE SODIUM 100 MG CAP PO ×2 (08:29→20:40)
[2019-02-22] MEDS: POTASSIUM CHLORIDE (SR) 20 MEQ TAB PO ×3 (08:30→20:42)
[2019-02-22] MEDS: LORATADINE 10 MG TAB PO (08:30)
[2019-02-22] MEDS: oxyCODONE (CR) 10 MG TAB [oxyCONTIN] PO ×2 (08:31→20:42)
[2019-02-22] MEDS: MAGNESIUM HYDROXIDE 30ML CUP PO (08:31)
[2019-02-22] MEDS: BENAZEPRIL 5 MG TAB PO (08:33)
[2019-02-22] MEDS: ONDANSETRON 4 MG TAB PO (08:37)
[2019-02-22] MEDS: METOLAZONE 2.5 MG TAB PO ×2 (08:38→20:41)
[2019-02-22] MEDS: ANASTROZOLE 1 MG TAB PO (08:41)
[2019-02-22] MEDS: ACETAMINOPHEN 500 MG TAB PO (22:55)
[2019-02-23] MEDS: PANTOPRAZOLE (EC) 40 MG TAB PO (05:47)
[2019-02-23] MEDS: FUROSEMIDE 40 MG INJ IV ×2 (05:48→18:00)
[2019-02-23] MEDS: POLYETHYLENE GLYCOL 17 GM PACKET PO ×3 (09:00→21:00)
[2019-02-23] MEDS: METOLAZONE 2.5 MG TAB PO ×2 (09:01→20:25)
[2019-02-23] MEDS: OLOPATADINE 0.1% 5 ML OPH BOTH EYES ×2 (09:02→21:00)
[2019-02-23] MEDS: POTASSIUM CHLORIDE (SR) 20 MEQ TAB PO ×2 (09:02→20:26)
[2019-02-23] MEDS: SPIRONOLACTONE 50 MG TAB PO (09:02)
[2019-02-23] MEDS: DOCUSATE SODIUM 100 MG CAP PO ×2 (09:02→20:24)
[2019-02-23] MEDS: LORATADINE 10 MG TAB PO (09:04)
[2019-02-23] MEDS: MAGNESIUM HYDROXIDE 30ML CUP PO (09:04)
[2019-02-23] MEDS: ESCITALOPRAM 10 MG TAB PO (09:04)
[2019-02-23] MEDS: ANASTROZOLE 1 MG TAB PO (09:06)
[2019-02-23] MEDS: oxyCODONE (CR) 10 MG TAB [oxyCONTIN] PO ×2 (09:11→20:25)
[2019-02-24] MEDS: ONDANSETRON 4 MG INJ IV (05:09)
[2019-02-24] MEDS: PANTOPRAZOLE (EC) 40 MG TAB PO (05:09)
[2019-02-24] MEDS: FUROSEMIDE 40 MG INJ IV (05:34)
[2019-02-24] MEDS: MAGNESIUM HYDROXIDE 30ML CUP PO (09:03)
[2019-02-24] MEDS: POLYETHYLENE GLYCOL 17 GM PACKET PO ×2 (09:03→21:24)
[2019-02-24] MEDS: SPIRONOLACTONE 50 MG TAB PO (09:03)
[2019-02-24] MEDS: POTASSIUM CHLORIDE (SR) 20 MEQ TAB PO ×2 (09:03→21:23)
[2019-02-24] MEDS: LORATADINE 10 MG TAB PO (09:03)
[2019-02-24] MEDS: ESCITALOPRAM 10 MG TAB PO (09:03)
[2019-02-24] MEDS: DOCUSATE SODIUM 100 MG CAP PO ×2 (09:03→21:23)
[2019-02-24] MEDS: ANASTROZOLE 1 MG TAB PO (09:06)
[2019-02-24] MEDS: oxyCODONE (CR) 10 MG TAB [oxyCONTIN] PO ×2 (09:10→21:23)
[2019-02-24] MEDS: OLOPATADINE 0.1% 5 ML OPH BOTH EYES ×2 (09:10→21:25)
[2019-02-24] MEDS: METOLAZONE 2.5 MG TAB PO (10:19)
[2019-02-25] MEDS: DOCUSATE SODIUM 100 MG CAP PO ×2 (08:57→21:34)
[2019-02-25] MEDS: ESCITALOPRAM 10 MG TAB PO (08:57)
[2019-02-25] MEDS: LORATADINE 10 MG TAB PO (08:57)
[2019-02-25] MEDS: MAGNESIUM HYDROXIDE 30ML CUP PO (08:57)
[2019-02-25] MEDS: SPIRONOLACTONE 50 MG TAB PO (08:57)
[2019-02-25] MEDS: PANTOPRAZOLE (EC) 40 MG TAB PO (08:58)
[2019-02-25] MEDS: OLOPATADINE 0.1% 5 ML OPH BOTH EYES ×2 (08:58→21:35)
[2019-02-25] MEDS: POTASSIUM CHLORIDE (SR) 20 MEQ TAB PO ×2 (08:58→21:34)
[2019-02-25] MEDS: ANASTROZOLE 1 MG TAB PO (09:00)
[2019-02-25] MEDS: POLYETHYLENE GLYCOL 17 GM PACKET PO ×2 (09:00→21:35)
[2019-02-25] MEDS: FUROSEMIDE 40 MG INJ IV ×2 (09:00→18:46)
[2019-02-25] MEDS: oxyCODONE (CR) 10 MG TAB [oxyCONTIN] PO ×2 (09:04→21:35)
[2019-02-25 18:00] LABS: BLOOD UREA NITROGEN 34 mg/dl (7-20); CALCIUM 8.5 mg/dl (8.4-10.2); CHLORIDE 83 mmol/L (97-110); CREATININE 0.86 mg/dl (0.44-1.00); Estimated GFR > 60 mL/min (>60); GLUCOSE 114 mg/dl (70-220); POTASSIUM 3.6 mmol/L (3.5-5.1); SODIUM 130 mmol/L (135-144)
[2019-02-25 18:06] LABS: ANION GAP 9 (5-13)
[2019-02-25 18:07] LABS: CARBON DIOXIDE 38 mmol/L (21-31)
[2019-02-26 05:38] LABS: ADD MAN DIFF? NO
[2019-02-26 05:44] LABS: BASOPHIL # 0.1 10^3/ul (0.0-0.1); HEMATOCRIT 32.2 % (37.0-47.0); HEMOGLOBIN 10.6 g/dl (12.0-16.0); LYMPHOCYTES # 1.4 10^3/ul (0.8-2.9); LYMPHOCYTES % 27.6 % (15.0-51.0); MEAN CORPUSCULAR HEMOGLOBIN 32.6 pg (29.0-33.0); MEAN CORPUSCULAR HGB CONC 32.9 g/dl (32.0-37.0); MEAN CORPUSCULAR VOLUME 99.1 fl (82.0-101.0); MEAN PLATELET VOLUME 9.4 fl (7.4-10.4); MONOCYTES % 19.8 % (0.0-11.0); NEUTROPHIL # 2.6 10^3/ul (1.6-7.5); NEUTROPHILS % 51.2 % (39.0-77.0); PLATELET COUNT 197 10^3/UL (140-415); RED BLOOD COUNT 3.25 10^6/ul (4.20-5.40); RED CELL DISTRIBUTION WIDTH 16.3 % (11.5-14.5)
[2019-02-26] MEDS: FUROSEMIDE 40 MG INJ IV ×2 (06:00→18:00)
[2019-02-26 06:34] LABS: ALANINE AMINOTRANSFERASE 15 IU/L (13-69); ALBUMIN 2.8 g/dl (3.3-4.9); ALBUMIN/GLOBULIN RATIO 1.12; ALKALINE PHOSPHATASE 81 IU/L (42-121); ANION GAP 8 (5-13); ASPARTATE AMINO TRANSFERASE 38 IU/L (15-46); BILIRUBIN,INDIRECT 0.5 mg/dl (0-1.1); BILIRUBIN,TOTAL 0.5 mg/dl (0.2-1.3); BLOOD UREA NITROGEN 36 mg/dl (7-20); CALCIUM 8.4 mg/dl (8.4-10.2); CARBON DIOXIDE 39 mmol/L (21-31); CHLORIDE 84 mmol/L (97-110); CREATININE 0.81 mg/dl (0.44-1.00); Estimated GFR > 60 mL/min (>60); GLUCOSE 122 mg/dl (70-220); POTASSIUM 3.1 mmol/L (3.5-5.1); SODIUM 131 mmol/L (135-144); TOTAL PROTEIN 5.3 g/dl (6.1-8.1)
[2019-02-26] MEDS: LORATADINE 10 MG TAB PO (08:37)
[2019-02-26] MEDS: POLYETHYLENE GLYCOL 17 GM PACKET PO ×3 (08:37→20:31)
[2019-02-26] MEDS: DOCUSATE SODIUM 100 MG CAP PO ×2 (08:38→20:30)
[2019-02-26] MEDS: ESCITALOPRAM 10 MG TAB PO (08:38)
[2019-02-26] MEDS: oxyCODONE (CR) 10 MG TAB [oxyCONTIN] PO ×2 (08:38→20:32)
[2019-02-26] MEDS: MAGNESIUM HYDROXIDE 30ML CUP PO (08:38)
[2019-02-26] MEDS: PANTOPRAZOLE (EC) 40 MG TAB PO (08:38)
[2019-02-26] MEDS: SPIRONOLACTONE 50 MG TAB PO (08:38)
[2019-02-26] MEDS: POTASSIUM CHLORIDE (SR) 20 MEQ TAB PO ×2 (08:38→20:30)
[2019-02-26] MEDS: ANASTROZOLE 1 MG TAB PO (08:40)
[2019-02-26] MEDS: LIDOCAINE 1% (MPF) 5 ML VIAL (10:04)
[2019-02-26] MEDS: OLOPATADINE 0.1% 5 ML OPH BOTH EYES ×2 (12:22→20:30)
[2019-02-27] MEDS: FUROSEMIDE 40 MG INJ IV ×2 (06:00→18:00)
[2019-02-27] MEDS: POTASSIUM CHLORIDE (SR) 20 MEQ TAB PO ×3 (07:53→21:02)
[2019-02-27] MEDS: PANTOPRAZOLE (EC) 40 MG TAB PO (07:53)
[2019-02-27] MEDS: HYDROCODONE/APAP (5/325) TAB PO (08:29)
[2019-02-27] MEDS: oxyCODONE (CR) 10 MG TAB [oxyCONTIN] PO ×2 (08:29→21:03)
[2019-02-27] MEDS: POLYETHYLENE GLYCOL 17 GM PACKET PO ×2 (09:08→21:05)
[2019-02-27] MEDS: ANASTROZOLE 1 MG TAB PO (09:14)
[2019-02-27] MEDS: SPIRONOLACTONE 50 MG TAB PO (09:15)
[2019-02-27] MEDS: DOCUSATE SODIUM 100 MG CAP PO ×2 (09:15→21:02)
[2019-02-27] MEDS: ESCITALOPRAM 10 MG TAB PO (09:16)
[2019-02-27] MEDS: LORATADINE 10 MG TAB PO (09:16)
[2019-02-27 09:18] LABS: ADD MAN DIFF? NO
[2019-02-27 09:43] LABS: WHITE BLOOD COUNT 5.2 10^3/ul (4.8-10.8)
[2019-02-27 09:43] LABS: ALANINE AMINOTRANSFERASE 23 IU/L (13-69); ALBUMIN 2.7 g/dl (3.3-4.9); ALBUMIN/GLOBULIN RATIO 1.03; ALKALINE PHOSPHATASE 76 IU/L (42-121); ANION GAP 4 (5-13); ASPARTATE AMINO TRANSFERASE 34 IU/L (15-46); BASOPHIL # 0.1 10^3/ul (0.0-0.1); BILIRUBIN,INDIRECT 0.7 mg/dl (0-1.1); BILIRUBIN,TOTAL 0.7 mg/dl (0.2-1.3); BLOOD UREA NITROGEN 29 mg/dl (7-20); CALCIUM 8.5 mg/dl (8.4-10.2); CARBON DIOXIDE 37 mmol/L (21-31); CHLORIDE 88 mmol/L (97-110); CREATININE 0.69 mg/dl (0.44-1.00); EOSINOPHILS % 0.2 % (0.0-7.0); Estimated GFR > 60 mL/min (>60); GLUCOSE 109 mg/dl (70-220); HEMATOCRIT 32.7 % (37.0-47.0); HEMOGLOBIN 10.5 g/dl (12.0-16.0); IRON 57 ug/dl (35-150); LYMPHOCYTES # 1.4 10^3/ul (0.8-2.9); MEAN CORPUSCULAR HEMOGLOBIN 31.5 pg (29.0-33.0); MEAN CORPUSCULAR HGB CONC 32.1 g/dl (32.0-37.0); MEAN CORPUSCULAR VOLUME 98.2 fl (82.0-101.0); MEAN PLATELET VOLUME 9.6 fl (7.4-10.4); MONOCYTE # 0.9 10^3/ul (0.3-0.9); MONOCYTES % 18.1 % (0.0-11.0); NEUTROPHIL # 2.8 10^3/ul (1.6-7.5); NEUTROPHILS % 54.5 % (39.0-77.0); PLATELET COUNT 182 10^3/UL (140-415); RED BLOOD COUNT 3.33 10^6/ul (4.20-5.40); RED CELL DISTRIBUTION WIDTH 16.7 % (11.5-14.5); SODIUM 129 mmol/L (135-144); TOTAL PROTEIN 5.3 g/dl (6.1-8.1)
[2019-02-27 09:52] LABS: % IRON SATURATION 20 % SAT (22-52); TOTAL IRON BINDING CAPACITY 287 ug/dl (241-421)
[2019-02-27] MEDS: SODIUM CHLORIDE 1 GM TAB PO ×3 (10:41→21:03)
[2019-02-27] MEDS: OLOPATADINE 0.1% 5 ML OPH BOTH EYES ×2 (10:48→21:03)
[2019-02-28] MEDS: FUROSEMIDE 40 MG INJ IV ×2 (04:57→19:10)
[2019-02-28] MEDS: DOCUSATE SODIUM 100 MG CAP PO ×2 (08:47→22:27)
[2019-02-28] MEDS: PANTOPRAZOLE (EC) 40 MG TAB PO (08:47)
[2019-02-28] MEDS: ANASTROZOLE 1 MG TAB PO (08:48)
[2019-02-28] MEDS: ESCITALOPRAM 10 MG TAB PO (08:49)
[2019-02-28] MEDS: oxyCODONE (CR) 10 MG TAB [oxyCONTIN] PO ×2 (08:49→22:28)
[2019-02-28] MEDS: LORATADINE 10 MG TAB PO (08:49)
[2019-02-28] MEDS: POTASSIUM CHLORIDE (SR) 20 MEQ TAB PO ×2 (08:50→22:29)
[2019-02-28] MEDS: OLOPATADINE 0.1% 5 ML OPH BOTH EYES ×2 (08:50→22:34)
[2019-02-28] MEDS: SODIUM CHLORIDE 1 GM TAB PO ×3 (08:51→18:10)
[2019-02-28] MEDS: SPIRONOLACTONE 50 MG TAB PO (08:51)
[2019-02-28] MEDS: POLYETHYLENE GLYCOL 17 GM PACKET PO ×2 (08:53→22:34)
[2019-02-28] MEDS: LORAZEPAM 2 MG INJ IV (21:45)
[2019-02-28] MEDS: HYDROCODONE/APAP (5/325) TAB PO (22:27)
[2019-02-28] MEDS: POTASSIUM CHLORIDE 100 ML IVPB (22:37)
[2019-02-28] MEDS: LIDOCAINE 5% PATCH TD (22:39)
[2019-03-01] MEDS: POTASSIUM CHLORIDE 100 ML IVPB (00:31)
[2019-03-01 01:46] LABS: ADD UMIC YES; UR ASCORBIC ACID NEGATIVE (NEGATIVE); UR BILIRUBIN (Dip) NEGATIVE (NEGATIVE); UR BLOOD (Dip) NEGATIVE (NEGATIVE); UR CLARITY SLIGHTLY CLOUDY (CLEAR); UR COLOR YELLOW (YELLOW); UR GLUCOSE (Dip) NEGATIVE (NEGATIVE); UR KETONES (Dip) NEGATIVE (NEGATIVE); UR LEUKOCYTE ESTERASE (Dip) 2+ Leu/ul (NEGATIVE); UR NITRITE (Dip) NEGATIVE (NEGATIVE); UR RBC 1 /HPF (0-5); UR SPECIFIC GRAVITY (Dip) 1.018 (1.003-1.030); UR TOTAL PROTEIN (Dip) NEGATIVE (NEGATIVE); UR UROBILINOGEN (Dip) 1+ mg/dL (NEGATIVE); UR WBC 118 /HPF (0-5)
[2019-03-01 01:55] LABS: POTASSIUM,URINE RANDOM 92.4 mmol/L (25-125)
[2019-03-01 01:58] LABS: SODIUM,URINE RANDOM < 13 mmol/L (30-90)
[2019-03-01] MEDS: FUROSEMIDE 40 MG INJ IV ×2 (04:56→18:00)
[2019-03-01 05:41] LABS: ANION GAP 6 (5-13); BLOOD UREA NITROGEN 30 mg/dl (7-20); CALCIUM 8.4 mg/dl (8.4-10.2); CARBON DIOXIDE 32 mmol/L (21-31); CHLORIDE 95 mmol/L (97-110); Estimated GFR > 60 mL/min (>60); GLUCOSE 100 mg/dl (70-220); POTASSIUM 4.4 mmol/L (3.5-5.1); SODIUM 133 mmol/L (135-144)
[2019-03-01] MEDS: PANTOPRAZOLE (EC) 40 MG TAB PO (08:42)
[2019-03-01] MEDS ORDERED: LIDOCAINE 5% PATCH TD (09:00)
[2019-03-01] MEDS: LORATADINE 10 MG TAB PO (09:11)
[2019-03-01] MEDS: DOCUSATE SODIUM 100 MG CAP PO ×2 (09:12→21:46)
[2019-03-01] MEDS: POTASSIUM CHLORIDE (SR) 20 MEQ TAB PO ×2 (09:13→21:47)
[2019-03-01] MEDS: SODIUM CHLORIDE 1 GM TAB PO ×2 (09:13→17:55)
[2019-03-01] MEDS: ESCITALOPRAM 10 MG TAB PO (09:14)
[2019-03-01] MEDS: OLOPATADINE 0.1% 5 ML OPH BOTH EYES ×2 (09:18→21:46)
[2019-03-01] MEDS: SPIRONOLACTONE 50 MG TAB PO (09:18)
[2019-03-01] MEDS: POLYETHYLENE GLYCOL 17 GM PACKET PO ×2 (09:20→21:00)
[2019-03-01] MEDS: LIDOCAINE 5% PATCH TD (09:20)
[2019-03-01] MEDS: ANASTROZOLE 1 MG TAB PO (09:22)
[2019-03-01] MEDS: oxyCODONE (CR) 10 MG TAB [oxyCONTIN] PO ×2 (09:24→21:47)
[2019-03-01] MEDS: HYDROCODONE/APAP (5/325) TAB PO (16:27)
[2019-03-02] MEDS: PANTOPRAZOLE (EC) 40 MG TAB PO (06:20)
[2019-03-02] MEDS: FUROSEMIDE 40 MG INJ IV ×2 (06:20→18:00)
[2019-03-02] MEDS: HYDROCODONE/APAP (5/325) TAB PO ×2 (06:20→22:14)
[2019-03-02] MEDS: SODIUM CHLORIDE 1 GM TAB PO ×3 (08:55→21:07)
[2019-03-02] MEDS: SPIRONOLACTONE 50 MG TAB PO (08:55)
[2019-03-02] MEDS: POTASSIUM CHLORIDE (SR) 20 MEQ TAB PO ×2 (08:57→21:07)
[2019-03-02] MEDS: DOCUSATE SODIUM 100 MG CAP PO ×2 (08:58→21:07)
[2019-03-02] MEDS: oxyCODONE (CR) 10 MG TAB [oxyCONTIN] PO ×2 (08:58→21:15)
[2019-03-02] MEDS: LIDOCAINE 5% PATCH TD (08:59)
[2019-03-02] MEDS: LORATADINE 10 MG TAB PO (09:01)
[2019-03-02] MEDS: ESCITALOPRAM 10 MG TAB PO (09:01)
[2019-03-02] MEDS: POLYETHYLENE GLYCOL 17 GM PACKET PO ×2 (09:03→21:00)
[2019-03-02] MEDS: OLOPATADINE 0.1% 5 ML OPH BOTH EYES ×2 (09:03→21:00)
[2019-03-02] MEDS: ANASTROZOLE 1 MG TAB PO (09:04)
[2019-03-02 13:49] LABS: SODIUM,URINE RANDOM < 13 mmol/L (30-90)
[2019-03-02 13:49] LABS: PROTEIN URINE < 5.0 mg/dl (0.0-11.9)
[2019-03-02 13:50] LABS: OSMOLALITY,URINE 619 mOsm/kg (250-1200)
[2019-03-02] MEDS: ONDANSETRON 4 MG INJ IV (18:43)
[2019-03-03 05:15] LABS: ADD MAN DIFF? NO
[2019-03-03 05:27] LABS: WHITE BLOOD COUNT 3.5 10^3/ul (4.8-10.8)
[2019-03-03 05:27] LABS: BASOPHIL # 0.1 10^3/ul (0.0-0.1); BASOPHILS % 1.7 % (0.0-2.0); EOSINOPHILS % 0.8 % (0.0-7.0); HEMATOCRIT 33.2 % (37.0-47.0); HEMOGLOBIN 10.7 g/dl (12.0-16.0); LYMPHOCYTES # 1.5 10^3/ul (0.8-2.9); LYMPHOCYTES % 41.2 % (15.0-51.0); MEAN CORPUSCULAR HEMOGLOBIN 33.1 pg (29.0-33.0); MEAN CORPUSCULAR HGB CONC 32.2 g/dl (32.0-37.0); MEAN CORPUSCULAR VOLUME 102.8 fl (82.0-101.0); MEAN PLATELET VOLUME 9.4 fl (7.4-10.4); MONOCYTE # 0.6 10^3/ul (0.3-0.9); MONOCYTES % 17.2 % (0.0-11.0); NEUTROPHIL # 1.4 10^3/ul (1.6-7.5); NEUTROPHILS % 39.1 % (39.0-77.0); PLATELET COUNT 192 10^3/UL (140-415); RED BLOOD COUNT 3.23 10^6/ul (4.20-5.40)
[2019-03-03] MEDS: FUROSEMIDE 40 MG INJ IV (05:45)
[2019-03-03] MEDS: PANTOPRAZOLE (EC) 40 MG TAB PO (05:52)
[2019-03-03 06:02] LABS: ALANINE AMINOTRANSFERASE 21 IU/L (13-69); ALBUMIN 2.8 g/dl (3.3-4.9); ALKALINE PHOSPHATASE 93 IU/L (42-121); ANION GAP 4 (5-13); ASPARTATE AMINO TRANSFERASE 43 IU/L (15-46); BILIRUBIN,INDIRECT 0.5 mg/dl (0-1.1); BILIRUBIN,TOTAL 0.5 mg/dl (0.2-1.3); BLOOD UREA NITROGEN 28 mg/dl (7-20); CALCIUM 8.6 mg/dl (8.4-10.2); CARBON DIOXIDE 31 mmol/L (21-31); CHLORIDE 103 mmol/L (97-110); Estimated GFR > 60 mL/min (>60); GLUCOSE 106 mg/dl (70-220); POTASSIUM 4.6 mmol/L (3.5-5.1); SODIUM 138 mmol/L (135-144); TOTAL PROTEIN 5.6 g/dl (6.1-8.1)
[2019-03-03] MEDS: POLYETHYLENE GLYCOL 17 GM PACKET PO ×2 (09:32→21:00)
[2019-03-03] MEDS: OLOPATADINE 0.1% 5 ML OPH BOTH EYES ×2 (09:33→22:01)
[2019-03-03] MEDS: LIDOCAINE 5% PATCH TD (09:33)
[2019-03-03] MEDS: SPIRONOLACTONE 50 MG TAB PO (09:33)
[2019-03-03] MEDS: ANASTROZOLE 1 MG TAB PO (09:34)
[2019-03-03] MEDS: SODIUM CHLORIDE 1 GM TAB PO (09:34)
[2019-03-03] MEDS: ESCITALOPRAM 10 MG TAB PO (09:34)
[2019-03-03] MEDS: POTASSIUM CHLORIDE (SR) 20 MEQ TAB PO ×2 (09:35→22:02)
[2019-03-03] MEDS: DOCUSATE SODIUM 100 MG CAP PO ×2 (09:35→22:01)
[2019-03-03] MEDS: LORATADINE 10 MG TAB PO (09:35)
[2019-03-03] MEDS: oxyCODONE (CR) 10 MG TAB [oxyCONTIN] PO ×2 (09:39→22:02)
[2019-03-03] MEDS: FUROSEMIDE 20 MG TAB PO (09:40)
[2019-03-03 12:39] LABS: MAGNESIUM 2.2 mg/dl (1.7-2.5)
[2019-03-03] MEDS: HYDROCODONE/APAP (5/325) TAB PO ×2 (15:23→23:06)
[2019-03-03 19:20] LABS: INR 0.93; PARTIAL THROMBOPLASTIN TIME 33.2 Sec (23.0-35.0); PROTIME 12.6 Sec (11.9-14.9)
[2019-03-03] MEDS: FUROSEMIDE 20 MG INJ IV (22:03)
[2019-03-04 03:13] LABS: ANION GAP 5 (5-13); BLOOD UREA NITROGEN 31 mg/dl (7-20); CALCIUM 8.5 mg/dl (8.4-10.2); CARBON DIOXIDE 29 mmol/L (21-31); CHLORIDE 103 mmol/L (97-110); CREATININE 0.93 mg/dl (0.44-1.00); Estimated GFR > 60 mL/min (>60); GLUCOSE 96 mg/dl (70-220); MAGNESIUM 2.1 mg/dl (1.7-2.5); PHOSPHORUS 5.7 mg/dl (2.5-4.9); POTASSIUM 4.9 mmol/L (3.5-5.1); SODIUM 137 mmol/L (135-144)
[2019-03-04 03:15] LABS: INR 0.99; PROTIME 13.2 Sec (11.9-14.9)
[2019-03-04 04:15] LABS: IMMEDIATE SPIN CROSSMATCH 1 4
[2019-03-04] MEDS: SODIUM CHLORIDE 1 GM TAB PO ×2 (08:26→17:55)
[2019-03-04] MEDS: PANTOPRAZOLE (EC) 40 MG TAB PO (08:26)
[2019-03-04] MEDS: FUROSEMIDE 20 MG TAB PO (09:00)
[2019-03-04] MEDS: LIDOCAINE 5% PATCH TD (09:32)
[2019-03-04] MEDS: OLOPATADINE 0.1% 5 ML OPH BOTH EYES ×2 (09:32→21:04)
[2019-03-04] MEDS: POLYETHYLENE GLYCOL 17 GM PACKET PO ×2 (09:33→21:04)
[2019-03-04] MEDS: oxyCODONE (CR) 10 MG TAB [oxyCONTIN] PO ×2 (09:33→21:05)
[2019-03-04] MEDS: DOCUSATE SODIUM 100 MG CAP PO ×2 (09:34→21:04)
[2019-03-04] MEDS: ESCITALOPRAM 10 MG TAB PO (09:34)
[2019-03-04] MEDS: SPIRONOLACTONE 50 MG TAB PO (09:34)
[2019-03-04] MEDS: POTASSIUM CHLORIDE (SR) 20 MEQ TAB PO ×2 (09:35→21:04)
[2019-03-04] MEDS: ANASTROZOLE 1 MG TAB PO (09:35)
[2019-03-04] MEDS: LORATADINE 10 MG TAB PO (09:35)
[2019-03-04 14:00] LABS: ADD MAN DIFF? NO
[2019-03-04 14:05] LABS: BASOPHIL # 0.1 10^3/ul (0.0-0.1); BASOPHILS % 1.7 % (0.0-2.0); EOSINOPHILS % 0.6 % (0.0-7.0); HEMATOCRIT 40.6 % (37.0-47.0); HEMOGLOBIN 12.9 g/dl (12.0-16.0); LYMPHOCYTES # 1.6 10^3/ul (0.8-2.9); LYMPHOCYTES % 34.6 % (15.0-51.0); MEAN CORPUSCULAR HEMOGLOBIN 31.6 pg (29.0-33.0); MEAN CORPUSCULAR HGB CONC 31.8 g/dl (32.0-37.0); MEAN CORPUSCULAR VOLUME 99.5 fl (82.0-101.0); MEAN PLATELET VOLUME 9.1 fl (7.4-10.4); MONOCYTE # 0.7 10^3/ul (0.3-0.9); NEUTROPHIL # 2.3 10^3/ul (1.6-7.5); NEUTROPHILS % 47.9 % (39.0-77.0); PLATELET COUNT 179 10^3/UL (140-415); RED BLOOD COUNT 4.08 10^6/ul (4.20-5.40); RED CELL DISTRIBUTION WIDTH 18.3 % (11.5-14.5)
[2019-03-04 14:05] LABS: WHITE BLOOD COUNT 4.7 10^3/ul (4.8-10.8)
[2019-03-04 14:52] LABS: CREATININE, RANDOM URINE 86 mg/dL (20-275); MICROALBUMIN 0.6 mg/dL; MICROALBUMIN/CREATININE RATIO 7 (<30)
[2019-03-04] MEDS: ALBUMIN HUMAN 25% 100 ML IV (21:03)
[2019-03-05] MEDS: ALBUMIN HUMAN 25% 100 ML IV ×2 (04:32→11:08)
[2019-03-05] MEDS: PANTOPRAZOLE (EC) 40 MG TAB PO (07:20)
[2019-03-05] MEDS: SODIUM CHLORIDE 1 GM TAB PO (09:00)
[2019-03-05] MEDS ORDERED: ALBUMIN HUMAN 25% 100 ML IV (09:00)
[2019-03-05] MEDS: DOCUSATE SODIUM 100 MG CAP PO ×2 (09:00→20:23)
[2019-03-05] MEDS: FUROSEMIDE 20 MG TAB PO (09:00)
[2019-03-05] MEDS: oxyCODONE (CR) 10 MG TAB [oxyCONTIN] PO ×2 (09:00→20:28)
[2019-03-05] MEDS: SPIRONOLACTONE 50 MG TAB PO (09:00)
[2019-03-05] MEDS: OLOPATADINE 0.1% 5 ML OPH BOTH EYES ×2 (09:00→20:23)
[2019-03-05] MEDS: LIDOCAINE 5% PATCH TD (09:00)
[2019-03-05] MEDS: ESCITALOPRAM 10 MG TAB PO (09:00)
[2019-03-05] MEDS: POTASSIUM CHLORIDE (SR) 20 MEQ TAB PO ×2 (09:00→20:23)
[2019-03-05] MEDS: POLYETHYLENE GLYCOL 17 GM PACKET PO ×2 (09:00→20:24)
[2019-03-05] MEDS: ANASTROZOLE 1 MG TAB PO (09:00)
[2019-03-05] MEDS: LORATADINE 10 MG TAB PO (09:00)
[2019-03-05] MEDS: LIDOCAINE 1% (MPF) 5 ML VIAL (09:01)
[2019-03-05] MEDS ORDERED: CEFAZOLIN 1 GM INJ (13:01)
[2019-03-05] MEDS ORDERED: MIDAZOLAM 1 MG/ML 2 ML INJ ×2 (13:01)
[2019-03-05] MEDS ORDERED: PROPOFOL 100 ML (13:01)
[2019-03-05] MEDS ORDERED: ROPIVACAINE 0.2% 20 ML VIAL (13:02)
[2019-03-05] MEDS ORDERED: morphine SULFATE/PF (10 MG/10 ML) INJ (13:02)
[2019-03-05] MEDS ORDERED: PHENYLephrine 10 MG INJ (14:03)
[2019-03-05] MEDS ORDERED: ALBUMIN HUMAN 5% 500 ML (14:16)
[2019-03-05] MEDS: POLYMYXIN/BACITRACIN 1L IRRIG IRR (14:26)
[2019-03-05] MEDS ORDERED: DEXAMETHASONE 4 MG/ML 5 ML INJ (14:40)
[2019-03-05] MEDS ORDERED: METOCLOPRAMIDE 10 MG INJ (14:40)
[2019-03-05] MEDS ORDERED: ONDANSETRON 4 MG INJ (14:40)
[2019-03-05] MEDS ORDERED: KETOROLAC 30 MG INJ (14:41)
[2019-03-05] MEDS ORDERED: VANCOMYCIN 1 GM INJ (15:18)
[2019-03-05] MEDS ORDERED: FENTAnyl 50 MCG/ML VIAL IV ×3 (16:30)
[2019-03-05] MEDS ORDERED: HYDROmorphONE 0.5 MG/0.5 ML SYG IV ×2 (16:30→17:00)
[2019-03-05] MEDS ORDERED: DIPHENHYDRAMINE 50 MG INJ IV ×3 (16:30→17:00)
[2019-03-05] MEDS ORDERED: OXYCODONE/ACETAMINOPHEN (5/325) TAB PO (16:30)
[2019-03-05] MEDS ORDERED: NALOXONE (0.4 MG/ML) INJ IV (16:30)
[2019-03-05] MEDS ORDERED: LABETALOL HCL 20MG INJ IV (16:30)
[2019-03-05] MEDS ORDERED: MEPERIDINE 25 MG INJ IV (16:30)
[2019-03-05] MEDS ORDERED: HYDROmorphONE 1 MG/5 ML IV SYRINGE IV ×2 (16:30)
[2019-03-05] MEDS ORDERED: hydrALAzine 20 MG INJ IV (16:30)
[2019-03-05] MEDS ORDERED: ACETAMINOPHEN 500 MG TAB PO ×2 (16:30→17:00)
[2019-03-05] MEDS ORDERED: morphine 2 MG INJ IV ×2 (16:30)
[2019-03-05] MEDS ORDERED: HYDROCODONE/APAP (5/325) TAB PO ×2 (16:30)
[2019-03-05] MEDS ORDERED: NALBUPHINE HCL (10 MG/1 ML) INJ IV (16:30)
[2019-03-05] MEDS ORDERED: ONDANSETRON 4 MG INJ IV ×2 (16:30)
[2019-03-05] MEDS ORDERED: NACL 0.9% 3 ML SYG IV (16:30)
[2019-03-05] MEDS ORDERED: METOCLOPRAMIDE 10 MG INJ IV (16:30)
[2019-03-05 17:01] LABS: ADD MAN DIFF? NO
[2019-03-05 17:04] LABS: WHITE BLOOD COUNT 3.3 10^3/ul (4.8-10.8)
[2019-03-05 17:04] LABS: ABNORMAL IP MESSAGE 1; BASOPHILS % 0.6 % (0.0-2.0); EOSINOPHILS % 0.6 % (0.0-7.0); HEMATOCRIT 27.8 % (37.0-47.0); HEMOGLOBIN 8.7 g/dl (12.0-16.0); LYMPHOCYTES # 0.7 10^3/ul (0.8-2.9); MEAN CORPUSCULAR HEMOGLOBIN 32.5 pg (29.0-33.0); MEAN CORPUSCULAR HGB CONC 31.3 g/dl (32.0-37.0); MEAN CORPUSCULAR VOLUME 103.7 fl (82.0-101.0); MEAN PLATELET VOLUME 8.6 fl (7.4-10.4); MONOCYTE # 0.1 10^3/ul (0.3-0.9); MONOCYTES % 4.2 % (0.0-11.0); NEUTROPHIL # 2.4 10^3/ul (1.6-7.5); PLATELET COUNT 93 10^3/UL (140-415); RED BLOOD COUNT 2.68 10^6/ul (4.20-5.40); RED CELL DISTRIBUTION WIDTH 17.5 % (11.5-14.5)
[2019-03-05 17:07] LABS: POSITIVE DIFF @See below
[2019-03-05 17:22] LABS: ANION GAP 5 (5-13); BLOOD UREA NITROGEN 20 mg/dl (7-20); CALCIUM 8.6 mg/dl (8.4-10.2); CARBON DIOXIDE 27 mmol/L (21-31); CHLORIDE 108 mmol/L (97-110); CREATININE 0.62 mg/dl (0.44-1.00); Estimated GFR > 60 mL/min (>60); GLUCOSE 98 mg/dl (70-220); POTASSIUM 4.3 mmol/L (3.5-5.1); SODIUM 140 mmol/L (135-144)
[2019-03-05] MEDS: EPHEDrine SULFATE 50 MG/5 ML SYG IV (17:22)
[2019-03-05] MEDS: CEFAZOLIN 2 GM/50 ML (PMX) 50 ML IVPB (17:31)
[2019-03-05 17:58] LABS: ANISOCYTOSIS 1+ (0-0); BAND NEUTROPHILS % (M) 3 % (0-4); BASOPHILS % (M) 1 % (0-2); GIANT THROMBO% (M) 2 % (0-0); LYMPHOCYTES #M 0.6 10^3/ul (0.8-2.9); LYMPHOCYTES % (M) 19 % (15-51); MONOCYTES % (M) 2 % (0-11); OVALOCYTES 1+ (0-0); PLATELET ESTIMATE DECREASED; POIKILOCYTOSIS 1+ (0-0); SEG NEUT #M 2.5 10^3/ul (1.6-7.5); SEGMENTED NEUTROPHILS (M) % 75 % (39-77); SMUDGE%M 34 % (0-0)
[2019-03-05] MEDS: SOD CHLORIDE 0.9% 1,000 ML IV (20:22)
[2019-03-05] MEDS: HYDROmorphONE 0.5 MG/0.5 ML SYG IV (23:26)
[2019-03-06] MEDS: CEFAZOLIN 2 GM/50 ML (PMX) 50 ML IVPB ×2 (00:40→08:10)
[2019-03-06] MEDS: SOD CHLORIDE 0.9% 1,000 ML IV ×2 (02:36→18:21)
[2019-03-06 05:46] LABS: ADD MAN DIFF? NO; BASOPHILS % 0.2 % (0.0-2.0); HEMOGLOBIN 7.9 g/dl (12.0-16.0); LYMPHOCYTES # 0.6 10^3/ul (0.8-2.9); LYMPHOCYTES % 11.2 % (15.0-51.0); MEAN CORPUSCULAR HEMOGLOBIN 32.5 pg (29.0-33.0); MEAN CORPUSCULAR HGB CONC 31.6 g/dl (32.0-37.0); MEAN CORPUSCULAR VOLUME 102.9 fl (82.0-101.0); MEAN PLATELET VOLUME 9.9 fl (7.4-10.4); MONOCYTE # 0.6 10^3/ul (0.3-0.9); MONOCYTES % 10.1 % (0.0-11.0); NEUTROPHIL # 4.3 10^3/ul (1.6-7.5); NEUTROPHILS % 78.1 % (39.0-77.0); PLATELET COUNT 135 10^3/UL (140-415); RED BLOOD COUNT 2.43 10^6/ul (4.20-5.40); RED CELL DISTRIBUTION WIDTH 17.2 % (11.5-14.5)
[2019-03-06 05:46] LABS: WHITE BLOOD COUNT 5.5 10^3/ul (4.8-10.8)
[2019-03-06 06:32] LABS: ANION GAP 10 (5-13); BLOOD UREA NITROGEN 28 mg/dl (7-20); CALCIUM 8.8 mg/dl (8.4-10.2); CARBON DIOXIDE 23 mmol/L (21-31); CHLORIDE 103 mmol/L (97-110); CREATININE 0.76 mg/dl (0.44-1.00); Estimated GFR > 60 mL/min (>60); GLUCOSE 147 mg/dl (70-220); PHOSPHORUS 6.6 mg/dl (2.5-4.9); POTASSIUM 5.2 mmol/L (3.5-5.1); SODIUM 136 mmol/L (135-144)
[2019-03-06 07:51] LABS: ADD UMIC YES; UR ASCORBIC ACID 20 mg/dL (NEGATIVE); UR BILIRUBIN (Dip) NEGATIVE (NEGATIVE); UR BLOOD (Dip) NEGATIVE (NEGATIVE); UR CLARITY TURBID (CLEAR); UR COLOR YELLOW (YELLOW); UR GLUCOSE (Dip) NEGATIVE (NEGATIVE); UR KETONES (Dip) 1+ mg/dL (NEGATIVE); UR LEUKOCYTE ESTERASE (Dip) 1+ Leu/ul (NEGATIVE); UR MUCUS FEW /HPF (NONE SEEN); UR NITRITE (Dip) NEGATIVE (NEGATIVE); UR RBC 21 /HPF (0-5); UR SPECIFIC GRAVITY (Dip) 1.027 (1.003-1.030); UR TOTAL PROTEIN (Dip) NEGATIVE (NEGATIVE); UR UROBILINOGEN (Dip) NEGATIVE (NEGATIVE); UR WBC 27 /HPF (0-5)
[2019-03-06] MEDS: PANTOPRAZOLE (EC) 40 MG TAB PO (08:13)
[2019-03-06] MEDS: DOCUSATE SODIUM 100 MG CAP PO ×2 (08:13→22:31)
[2019-03-06] MEDS: ESCITALOPRAM 10 MG TAB PO (08:13)
[2019-03-06] MEDS: LORATADINE 10 MG TAB PO (08:14)
[2019-03-06] MEDS: SODIUM CHLORIDE 1 GM TAB PO (08:14)
[2019-03-06] MEDS: oxyCODONE (CR) 10 MG TAB [oxyCONTIN] PO ×2 (08:15→22:31)
[2019-03-06] MEDS: POTASSIUM CHLORIDE (SR) 20 MEQ TAB PO (08:17)
[2019-03-06] MEDS: FUROSEMIDE 20 MG TAB PO (08:17)
[2019-03-06] MEDS: ANASTROZOLE 1 MG TAB PO (08:20)
[2019-03-06] MEDS: SPIRONOLACTONE 50 MG TAB PO (08:21)
[2019-03-06] MEDS: LIDOCAINE 5% PATCH TD (08:22)
[2019-03-06] MEDS: ENOXAPARIN 40 MG/0.4 ML SYG SC (08:22)
[2019-03-06] MEDS: POLYETHYLENE GLYCOL 17 GM PACKET PO ×2 (08:23→21:00)
[2019-03-06] MEDS: OLOPATADINE 0.1% 5 ML OPH BOTH EYES ×2 (08:24→21:00)
[2019-03-06] MEDS: HYDROmorphONE 0.5 MG/0.5 ML SYG IV (09:21)
[2019-03-06] MEDS: ONDANSETRON 4 MG INJ IV ×2 (14:27→20:59)
[2019-03-06] MEDS: morphine 4 MG/ML VIAL IV ×3 (14:54→20:59)
[2019-03-07] MEDS: morphine 4 MG/ML VIAL IV ×7 (00:22→22:22)
[2019-03-07] MEDS: ONDANSETRON 4 MG INJ IV (03:01)
[2019-03-07 05:15] LABS: ADD MAN DIFF? NO
[2019-03-07 05:19] LABS: BASOPHILS % 0.5 % (0.0-2.0); EOSINOPHILS % 0.1 % (0.0-7.0); HEMOGLOBIN 8.5 g/dl (12.0-16.0); LYMPHOCYTES # 1.3 10^3/ul (0.8-2.9); MEAN CORPUSCULAR HEMOGLOBIN 32.1 pg (29.0-33.0); MEAN CORPUSCULAR HGB CONC 32.7 g/dl (32.0-37.0); MEAN CORPUSCULAR VOLUME 98.1 fl (82.0-101.0); MEAN PLATELET VOLUME 9.1 fl (7.4-10.4); MONOCYTES % 12.9 % (0.0-11.0); NEUTROPHIL # 5.5 10^3/ul (1.6-7.5); NEUTROPHILS % 70.1 % (39.0-77.0); PLATELET COUNT 132 10^3/UL (140-415); RED BLOOD COUNT 2.65 10^6/ul (4.20-5.40); RED CELL DISTRIBUTION WIDTH 19.5 % (11.5-14.5)
[2019-03-07 05:19] LABS: WHITE BLOOD COUNT 7.9 10^3/ul (4.8-10.8)
[2019-03-07 05:48] LABS: ANION GAP 7 (5-13); BLOOD UREA NITROGEN 34 mg/dl (7-20); CALCIUM 8.3 mg/dl (8.4-10.2); CARBON DIOXIDE 24 mmol/L (21-31); CHLORIDE 104 mmol/L (97-110); CREATININE 0.94 mg/dl (0.44-1.00); Estimated GFR > 60 mL/min (>60); GLUCOSE 128 mg/dl (70-220); MAGNESIUM 2.1 mg/dl (1.7-2.5); PHOSPHORUS 5.2 mg/dl (2.5-4.9); POTASSIUM 4.4 mmol/L (3.5-5.1); SODIUM 135 mmol/L (135-144)
[2019-03-07] MEDS: SOD CHLORIDE 0.9% 1,000 ML IV ×2 (06:32→18:17)
[2019-03-07] MEDS: PANTOPRAZOLE (EC) 40 MG TAB PO (06:35)
[2019-03-07] MEDS: SODIUM CHLORIDE 1 GM TAB PO (09:00)
[2019-03-07] MEDS: OLOPATADINE 0.1% 5 ML OPH BOTH EYES ×2 (09:00→21:00)
[2019-03-07] MEDS: FUROSEMIDE 20 MG TAB PO (09:32)
[2019-03-07] MEDS: DOCUSATE SODIUM 100 MG CAP PO ×2 (09:33→20:12)
[2019-03-07] MEDS: LORATADINE 10 MG TAB PO (09:34)
[2019-03-07] MEDS: ESCITALOPRAM 10 MG TAB PO (09:34)
[2019-03-07] MEDS: ENOXAPARIN 40 MG/0.4 ML SYG SC (09:35)
[2019-03-07] MEDS: ANASTROZOLE 1 MG TAB PO (09:35)
[2019-03-07] MEDS: SPIRONOLACTONE 50 MG TAB PO (09:36)
[2019-03-07] MEDS: POLYETHYLENE GLYCOL 17 GM PACKET PO ×2 (09:36→20:12)
[2019-03-07] MEDS: oxyCODONE (CR) 10 MG TAB [oxyCONTIN] PO ×2 (09:37→20:13)
[2019-03-07] MEDS: LIDOCAINE 5% PATCH TD (09:48)
[2019-03-07] MEDS ORDERED: ONDANSETRON 4 MG INJ IV (14:30)
[2019-03-07] MEDS: SOD CHLORIDE 0.9% 500 ML IV (17:17)
[2019-03-07] MEDS: ALBUTEROL/IPRATROPIUM (NEB) 3 ML AMP HHN (19:11)
[2019-03-07] MEDS: ONDANSETRON INJ 8 MG in DEXTROSE 5% 50 ML IV (19:53)
[2019-03-08] MEDS: morphine 4 MG/ML VIAL IV ×5 (00:48→23:05)
[2019-03-08] MEDS: PANTOPRAZOLE (EC) 40 MG TAB PO ×2 (05:08→09:45)
[2019-03-08] MEDS: ONDANSETRON 4 MG TAB PO (05:13)
[2019-03-08 05:14] LABS: ADD MAN DIFF? NO
[2019-03-08 05:16] LABS: BASOPHILS % 0.5 % (0.0-2.0); EOSINOPHILS # 0.1 10^3/ul (0.0-0.5); EOSINOPHILS % 2.4 % (0.0-7.0); HEMATOCRIT 23.8 % (37.0-47.0); HEMOGLOBIN 7.6 g/dl (12.0-16.0); LYMPHOCYTES # 1.3 10^3/ul (0.8-2.9); LYMPHOCYTES % 21.7 % (15.0-51.0); MEAN CORPUSCULAR HEMOGLOBIN 31.5 pg (29.0-33.0); MEAN CORPUSCULAR HGB CONC 31.9 g/dl (32.0-37.0); MEAN CORPUSCULAR VOLUME 98.8 fl (82.0-101.0); MEAN PLATELET VOLUME 9.2 fl (7.4-10.4); MONOCYTE # 0.8 10^3/ul (0.3-0.9); MONOCYTES % 13.8 % (0.0-11.0); NEUTROPHIL # 3.6 10^3/ul (1.6-7.5); NEUTROPHILS % 61.4 % (39.0-77.0); PLATELET COUNT 126 10^3/UL (140-415); RED BLOOD COUNT 2.41 10^6/ul (4.20-5.40); RED CELL DISTRIBUTION WIDTH 18.8 % (11.5-14.5)
[2019-03-08 05:16] LABS: WHITE BLOOD COUNT 5.8 10^3/ul (4.8-10.8)
[2019-03-08 05:46] LABS: ALANINE AMINOTRANSFERASE 17 IU/L (13-69); ALBUMIN 2.7 g/dl (3.3-4.9); ALBUMIN/GLOBULIN RATIO 1.22; ALKALINE PHOSPHATASE 44 IU/L (42-121); ANION GAP 6 (5-13); ASPARTATE AMINO TRANSFERASE 23 IU/L (15-46); BILIRUBIN,TOTAL 0.7 mg/dl (0.2-1.3); BLOOD UREA NITROGEN 30 mg/dl (7-20); CALCIUM 8.1 mg/dl (8.4-10.2); CARBON DIOXIDE 25 mmol/L (21-31); CHLORIDE 101 mmol/L (97-110); CREATININE 0.86 mg/dl (0.44-1.00); Estimated GFR > 60 mL/min (>60); GLUCOSE 113 mg/dl (70-220); MAGNESIUM 2.1 mg/dl (1.7-2.5); POTASSIUM 4.8 mmol/L (3.5-5.1); SODIUM 132 mmol/L (135-144); TOTAL PROTEIN 4.9 g/dl (6.1-8.1)
[2019-03-08 05:57] LABS: TOTAL IRON BINDING CAPACITY 224 ug/dl (241-421)
[2019-03-08 05:59] LABS: BILIRUBIN,INDIRECT 0.7 mg/dl (0-1.1); IRON < 10 ug/dl (35-150)
[2019-03-08] MEDS: OLOPATADINE 0.1% 5 ML OPH BOTH EYES ×2 (09:00→21:00)
[2019-03-08] MEDS: SODIUM CHLORIDE 1 GM TAB PO (09:00)
[2019-03-08] MEDS: ANASTROZOLE 1 MG TAB PO (09:43)
[2019-03-08] MEDS: oxyCODONE (CR) 10 MG TAB [oxyCONTIN] PO ×2 (09:46→20:48)
[2019-03-08] MEDS: DOCUSATE SODIUM 100 MG CAP PO ×2 (09:48→20:47)
[2019-03-08] MEDS: ESCITALOPRAM 10 MG TAB PO (09:48)
[2019-03-08] MEDS: FUROSEMIDE 20 MG TAB PO (09:48)
[2019-03-08] MEDS: LORATADINE 10 MG TAB PO (09:49)
[2019-03-08] MEDS: SPIRONOLACTONE 50 MG TAB PO (09:50)
[2019-03-08] MEDS: POLYETHYLENE GLYCOL 17 GM PACKET PO ×2 (09:50→20:55)
[2019-03-08] MEDS: ENOXAPARIN 40 MG/0.4 ML SYG SC (10:04)
[2019-03-08] MEDS: LIDOCAINE 5% PATCH TD (10:14)
[2019-03-08] MEDS: FUROSEMIDE 20 MG INJ IV (10:25)
[2019-03-09 05:52] LABS: ADD MAN DIFF? NO
[2019-03-09 05:53] LABS: WHITE BLOOD COUNT 4.4 10^3/ul (4.8-10.8)
[2019-03-09 05:53] LABS: BASOPHILS % 0.9 % (0.0-2.0); EOSINOPHILS # 0.1 10^3/ul (0.0-0.5); EOSINOPHILS % 3.2 % (0.0-7.0); HEMATOCRIT 22.5 % (37.0-47.0); HEMOGLOBIN 7.2 g/dl (12.0-16.0); LYMPHOCYTES # 1.1 10^3/ul (0.8-2.9); LYMPHOCYTES % 23.9 % (15.0-51.0); MEAN CORPUSCULAR HEMOGLOBIN 31.7 pg (29.0-33.0); MEAN CORPUSCULAR VOLUME 99.1 fl (82.0-101.0); MEAN PLATELET VOLUME 9.7 fl (7.4-10.4); MONOCYTE # 0.7 10^3/ul (0.3-0.9); MONOCYTES % 14.9 % (0.0-11.0); NEUTROPHIL # 2.5 10^3/ul (1.6-7.5); NEUTROPHILS % 56.9 % (39.0-77.0); PLATELET COUNT 130 10^3/UL (140-415); RED BLOOD COUNT 2.27 10^6/ul (4.20-5.40)
[2019-03-09 06:29] LABS: ANION GAP 5 (5-13); BLOOD UREA NITROGEN 24 mg/dl (7-20); CARBON DIOXIDE 26 mmol/L (21-31); CHLORIDE 100 mmol/L (97-110); CREATININE 0.77 mg/dl (0.44-1.00); Estimated GFR > 60 mL/min (>60); GLUCOSE 118 mg/dl (70-220); PHOSPHORUS 3.2 mg/dl (2.5-4.9); POTASSIUM 4.8 mmol/L (3.5-5.1); SODIUM 131 mmol/L (135-144)
[2019-03-09] MEDS: ONDANSETRON INJ 8 MG in DEXTROSE 5% 50 ML IV (07:38)
[2019-03-09] MEDS: morphine 4 MG/ML VIAL IV ×4 (08:19→22:18)
[2019-03-09] MEDS: OLOPATADINE 0.1% 5 ML OPH BOTH EYES ×2 (09:00→21:00)
[2019-03-09] MEDS: SPIRONOLACTONE 50 MG TAB PO (09:00)
[2019-03-09] MEDS: FUROSEMIDE 20 MG TAB PO (09:00)
[2019-03-09] MEDS: LIDOCAINE 5% PATCH TD (09:00)
[2019-03-09] MEDS: SODIUM CHLORIDE 1 GM TAB PO ×2 (09:00→09:30)
[2019-03-09] MEDS: POLYETHYLENE GLYCOL 17 GM PACKET PO ×2 (09:29→21:26)
[2019-03-09] MEDS: DOCUSATE SODIUM 100 MG CAP PO ×2 (09:30→21:26)
[2019-03-09] MEDS: oxyCODONE (CR) 10 MG TAB [oxyCONTIN] PO ×2 (09:31→21:27)
[2019-03-09] MEDS: LORATADINE 10 MG TAB PO (09:31)
[2019-03-09] MEDS: ESCITALOPRAM 10 MG TAB PO (09:31)
[2019-03-09] MEDS: ANASTROZOLE 1 MG TAB PO (09:32)
[2019-03-09] MEDS: ENOXAPARIN 40 MG/0.4 ML SYG SC (09:33)
[2019-03-09 12:18] LABS: ADD UMIC YES; UR ASCORBIC ACID NEGATIVE (NEGATIVE); UR BACTERIA FEW /HPF (NONE SEEN); UR BILIRUBIN (Dip) NEGATIVE (NEGATIVE); UR BLOOD (Dip) NEGATIVE (NEGATIVE); UR CLARITY CLEAR (CLEAR); UR COLOR YELLOW (YELLOW); UR GLUCOSE (Dip) NEGATIVE (NEGATIVE); UR KETONES (Dip) NEGATIVE (NEGATIVE); UR LEUKOCYTE ESTERASE (Dip) 1+ Leu/ul (NEGATIVE); UR NITRITE (Dip) NEGATIVE (NEGATIVE); UR RBC 0 /HPF (0-5); UR SPECIFIC GRAVITY (Dip) 1.012 (1.003-1.030); UR TOTAL PROTEIN (Dip) NEGATIVE (NEGATIVE); UR UROBILINOGEN (Dip) 2+ mg/dL (NEGATIVE); UR WBC 5 /HPF (0-5)
[2019-03-09 12:40] LABS: SODIUM,URINE RANDOM < 13 mmol/L (30-90)
[2019-03-09 12:44] LABS: OSMOLALITY,URINE 368 mOsm/kg (250-1200)
[2019-03-10] MEDS: morphine 4 MG/ML VIAL IV ×4 (02:07→23:26)
[2019-03-10] MEDS: PANTOPRAZOLE (EC) 40 MG TAB PO (05:16)
[2019-03-10 06:43] LABS: ANION GAP 5 (5-13); BLOOD UREA NITROGEN 18 mg/dl (7-20); CALCIUM 8.4 mg/dl (8.4-10.2); CARBON DIOXIDE 26 mmol/L (21-31); CHLORIDE 102 mmol/L (97-110); CREATININE 0.62 mg/dl (0.44-1.00); Estimated GFR > 60 mL/min (>60); GLUCOSE 109 mg/dl (70-220); POTASSIUM 5.1 mmol/L (3.5-5.1); SODIUM 133 mmol/L (135-144)
[2019-03-10] MEDS: OLOPATADINE 0.1% 5 ML OPH BOTH EYES ×2 (09:00→20:58)
[2019-03-10] MEDS: SODIUM CHLORIDE 1 GM TAB PO (09:00)
[2019-03-10] MEDS: POLYETHYLENE GLYCOL 17 GM PACKET PO ×2 (09:11→20:57)
[2019-03-10] MEDS: DOCUSATE SODIUM 100 MG CAP PO ×2 (09:16→20:57)
[2019-03-10] MEDS: LIDOCAINE 5% PATCH TD (09:16)
[2019-03-10] MEDS: SPIRONOLACTONE 50 MG TAB PO (09:16)
[2019-03-10] MEDS: FUROSEMIDE 20 MG TAB PO ×2 (09:17→18:00)
[2019-03-10] MEDS: LORATADINE 10 MG TAB PO (09:17)
[2019-03-10] MEDS: oxyCODONE (CR) 10 MG TAB [oxyCONTIN] PO ×2 (09:17→20:58)
[2019-03-10] MEDS: ESCITALOPRAM 10 MG TAB PO (09:17)
[2019-03-10] MEDS: ANASTROZOLE 1 MG TAB PO (09:20)
[2019-03-10] MEDS: ENOXAPARIN 40 MG/0.4 ML SYG SC (09:21)
[2019-03-10] MEDS: ALBUMIN HUMAN 25% 100 ML IV ×2 (15:58→22:30)
[2019-03-10] MEDS: SOD FERRIC GLUC COMPLX 125 MG in SOD CHLORIDE 0.9% 100 ML IVPB (17:24)
[2019-03-10 21:45] LABS: IMMEDIATE SPIN CROSSMATCH 1 2
[2019-03-11] MEDS: morphine 4 MG/ML VIAL IV ×4 (04:12→21:00)
[2019-03-11] MEDS: ALBUMIN HUMAN 25% 100 ML IV ×3 (05:42→22:17)
[2019-03-11] MEDS: PANTOPRAZOLE (EC) 40 MG TAB PO (05:43)
[2019-03-11] MEDS: FUROSEMIDE 20 MG TAB PO (05:43)
[2019-03-11] MEDS: LIDOCAINE 5% PATCH TD (09:00)
[2019-03-11] MEDS: SODIUM PHOSPHATE 30 MMOL in SOD CHLORIDE 0.9% 250 ML IVPB ×2 (09:33→09:37)
[2019-03-11] MEDS: OLOPATADINE 0.1% 5 ML OPH BOTH EYES ×2 (09:36→21:42)
[2019-03-11] MEDS: SPIRONOLACTONE 50 MG TAB PO (09:40)
[2019-03-11] MEDS: oxyCODONE (CR) 10 MG TAB [oxyCONTIN] PO ×2 (09:40→21:43)
[2019-03-11] MEDS: DOCUSATE SODIUM 100 MG CAP PO ×2 (09:40→21:42)
[2019-03-11] MEDS: ESCITALOPRAM 10 MG TAB PO (09:40)
[2019-03-11] MEDS: LORATADINE 10 MG TAB PO (09:41)
[2019-03-11] MEDS: SODIUM CHLORIDE 1 GM TAB PO (09:42)
[2019-03-11] MEDS: POLYETHYLENE GLYCOL 17 GM PACKET PO ×2 (09:42→21:00)
[2019-03-11] MEDS: ANASTROZOLE 1 MG TAB PO (09:45)
[2019-03-11] MEDS: SOD FERRIC GLUC COMPLX 125 MG in SOD CHLORIDE 0.9% 100 ML IVPB (14:05)
[2019-03-11] MEDS: FUROSEMIDE 40 MG TAB PO (18:09)
[2019-03-12] MEDS: morphine 4 MG/ML VIAL IV ×4 (02:45→20:12)
[2019-03-12 05:12] LABS: ADD MAN DIFF? NO
[2019-03-12 05:23] LABS: BASOPHILS % 0.6 % (0.0-2.0); EOSINOPHILS # 0.2 10^3/ul (0.0-0.5); EOSINOPHILS % 6.7 % (0.0-7.0); HEMATOCRIT 28.3 % (37.0-47.0); HEMOGLOBIN 9.4 g/dl (12.0-16.0); LYMPHOCYTES # 0.8 10^3/ul (0.8-2.9); LYMPHOCYTES % 22.9 % (15.0-51.0); MEAN CORPUSCULAR HEMOGLOBIN 31.9 pg (29.0-33.0); MEAN CORPUSCULAR HGB CONC 33.2 g/dl (32.0-37.0); MEAN CORPUSCULAR VOLUME 95.9 fl (82.0-101.0); MEAN PLATELET VOLUME 9.4 fl (7.4-10.4); MONOCYTE # 0.5 10^3/ul (0.3-0.9); MONOCYTES % 14.7 % (0.0-11.0); NEUTROPHIL # 1.8 10^3/ul (1.6-7.5); NEUTROPHILS % 55.1 % (39.0-77.0); PLATELET COUNT 153 10^3/UL (140-415); RED BLOOD COUNT 2.95 10^6/ul (4.20-5.40); RED CELL DISTRIBUTION WIDTH 18.4 % (11.5-14.5)
[2019-03-12 05:23] LABS: WHITE BLOOD COUNT 3.3 10^3/ul (4.8-10.8)
[2019-03-12 05:51] LABS: ANION GAP 6 (5-13); BLOOD UREA NITROGEN 14 mg/dl (7-20); CALCIUM 8.6 mg/dl (8.4-10.2); CARBON DIOXIDE 28 mmol/L (21-31); CHLORIDE 105 mmol/L (97-110); CREATININE 0.55 mg/dl (0.44-1.00); Estimated GFR > 60 mL/min (>60); GLUCOSE 99 mg/dl (70-220); MAGNESIUM 1.8 mg/dl (1.7-2.5); POTASSIUM 4.1 mmol/L (3.5-5.1); SODIUM 139 mmol/L (135-144)
[2019-03-12] MEDS: ALBUMIN HUMAN 25% 100 ML IV (06:18)
[2019-03-12] MEDS: PANTOPRAZOLE (EC) 40 MG TAB PO (06:19)
[2019-03-12] MEDS: FUROSEMIDE 40 MG TAB PO ×2 (06:30→18:26)
[2019-03-12] MEDS: OLOPATADINE 0.1% 5 ML OPH BOTH EYES ×2 (09:00→20:11)
[2019-03-12] MEDS: LIDOCAINE 5% PATCH TD (09:00)
[2019-03-12] MEDS: SODIUM CHLORIDE 1 GM TAB PO (09:33)
[2019-03-12] MEDS: DOCUSATE SODIUM 100 MG CAP PO ×2 (09:33→20:11)
[2019-03-12] MEDS: ESCITALOPRAM 10 MG TAB PO (09:33)
[2019-03-12] MEDS: ANASTROZOLE 1 MG TAB PO (09:34)
[2019-03-12] MEDS: LORATADINE 10 MG TAB PO (09:35)
[2019-03-12] MEDS: oxyCODONE (CR) 10 MG TAB [oxyCONTIN] PO ×2 (09:35→21:09)
[2019-03-12] MEDS: SPIRONOLACTONE 50 MG TAB PO (09:35)
[2019-03-12] MEDS: POLYETHYLENE GLYCOL 17 GM PACKET PO ×2 (09:36→20:11)
[2019-03-12] MEDS: SODIUM PHOSPHATE 30 MMOL in SOD CHLORIDE 0.9% 250 ML IVPB (09:36)
[2019-03-12] MEDS: SOD FERRIC GLUC COMPLX 125 MG in SOD CHLORIDE 0.9% 100 ML IVPB (13:14)
[2019-03-13] MEDS: ALBUTEROL/IPRATROPIUM (NEB) 3 ML AMP HHN ×2 (01:11→23:15)
[2019-03-13] MEDS: FUROSEMIDE 40 MG TAB PO ×2 (06:17→18:00)
[2019-03-13] MEDS: PANTOPRAZOLE (EC) 40 MG TAB PO (06:17)
[2019-03-13 08:49] LABS: ADD MAN DIFF? NO
[2019-03-13 08:54] LABS: EOSINOPHILS # 0.2 10^3/ul (0.0-0.5); EOSINOPHILS % 6.3 % (0.0-7.0); HEMOGLOBIN 10.4 g/dl (12.0-16.0); LYMPHOCYTES % 25.7 % (15.0-51.0); MEAN CORPUSCULAR HEMOGLOBIN 31.9 pg (29.0-33.0); MEAN CORPUSCULAR HGB CONC 32.5 g/dl (32.0-37.0); MEAN CORPUSCULAR VOLUME 98.2 fl (82.0-101.0); MEAN PLATELET VOLUME 8.4 fl (7.4-10.4); MONOCYTE # 0.5 10^3/ul (0.3-0.9); MONOCYTES % 13.6 % (0.0-11.0); NEUTROPHILS % 53.1 % (39.0-77.0); PLATELET COUNT 164 10^3/UL (140-415); RED BLOOD COUNT 3.26 10^6/ul (4.20-5.40); RED CELL DISTRIBUTION WIDTH 18.2 % (11.5-14.5)
[2019-03-13 08:54] LABS: WHITE BLOOD COUNT 3.8 10^3/ul (4.8-10.8)
[2019-03-13] MEDS: LIDOCAINE 5% PATCH TD (09:00)
[2019-03-13 09:12] LABS: ANION GAP 5 (5-13); BLOOD UREA NITROGEN 14 mg/dl (7-20); CALCIUM 8.5 mg/dl (8.4-10.2); CARBON DIOXIDE 30 mmol/L (21-31); CHLORIDE 103 mmol/L (97-110); CREATININE 0.62 mg/dl (0.44-1.00); Estimated GFR > 60 mL/min (>60); GLUCOSE 102 mg/dl (70-220); MAGNESIUM 1.7 mg/dl (1.7-2.5); PHOSPHORUS 4.5 mg/dl (2.5-4.9); POTASSIUM 3.9 mmol/L (3.5-5.1); SODIUM 138 mmol/L (135-144)
[2019-03-13] MEDS: OLOPATADINE 0.1% 5 ML OPH BOTH EYES ×2 (09:27→20:26)
[2019-03-13] MEDS: POLYETHYLENE GLYCOL 17 GM PACKET PO ×2 (09:29→21:00)
[2019-03-13] MEDS: SODIUM CHLORIDE 1 GM TAB PO (09:30)
[2019-03-13] MEDS: ESCITALOPRAM 10 MG TAB PO (09:30)
[2019-03-13] MEDS: LORATADINE 10 MG TAB PO (09:30)
[2019-03-13] MEDS: DOCUSATE SODIUM 100 MG CAP PO ×2 (09:30→20:26)
[2019-03-13] MEDS: oxyCODONE (CR) 10 MG TAB [oxyCONTIN] PO ×2 (09:30→20:27)
[2019-03-13] MEDS: SPIRONOLACTONE 50 MG TAB PO (09:31)
[2019-03-13] MEDS: ANASTROZOLE 1 MG TAB PO (09:32)
[2019-03-13] MEDS: morphine 4 MG/ML VIAL IV ×2 (12:46→22:42)
[2019-03-13] MEDS: SOD FERRIC GLUC COMPLX 125 MG in SOD CHLORIDE 0.9% 100 ML IVPB (12:52)
[2019-03-13] MEDS: ONDANSETRON INJ 8 MG in DEXTROSE 5% 50 ML IV (14:33)
[2019-03-13] MEDS ORDERED: OLOPATADINE 0.1% 5 ML OPH BOTH EYES (21:00)
[2019-03-14] MEDS: morphine 4 MG/ML VIAL IV ×3 (01:33→13:57)
[2019-03-14 05:06] LABS: ADD MAN DIFF? NO
[2019-03-14 05:14] LABS: WHITE BLOOD COUNT 5.5 10^3/ul (4.8-10.8)
[2019-03-14 05:14] LABS: BASOPHIL # 0.1 10^3/ul (0.0-0.1); BASOPHILS % 0.9 % (0.0-2.0); EOSINOPHILS # 0.3 10^3/ul (0.0-0.5); EOSINOPHILS % 5.7 % (0.0-7.0); HEMATOCRIT 34.2 % (37.0-47.0); HEMOGLOBIN 10.9 g/dl (12.0-16.0); LYMPHOCYTES # 1.1 10^3/ul (0.8-2.9); LYMPHOCYTES % 19.6 % (15.0-51.0); MEAN CORPUSCULAR HEMOGLOBIN 31.2 pg (29.0-33.0); MEAN CORPUSCULAR HGB CONC 31.9 g/dl (32.0-37.0); MONOCYTE # 0.8 10^3/ul (0.3-0.9); MONOCYTES % 14.6 % (0.0-11.0); NEUTROPHIL # 3.2 10^3/ul (1.6-7.5); NEUTROPHILS % 59.2 % (39.0-77.0); PLATELET COUNT 185 10^3/UL (140-415); RED BLOOD COUNT 3.49 10^6/ul (4.20-5.40); RED CELL DISTRIBUTION WIDTH 18.1 % (11.5-14.5)
[2019-03-14 05:49] LABS: ANION GAP 6 (5-13); BLOOD UREA NITROGEN 15 mg/dl (7-20); CALCIUM 8.5 mg/dl (8.4-10.2); CARBON DIOXIDE 30 mmol/L (21-31); CHLORIDE 101 mmol/L (97-110); CREATININE 0.57 mg/dl (0.44-1.00); Estimated GFR > 60 mL/min (>60); GLUCOSE 104 mg/dl (70-220); MAGNESIUM 1.7 mg/dl (1.7-2.5); PHOSPHORUS 4.8 mg/dl (2.5-4.9); POTASSIUM 4.2 mmol/L (3.5-5.1); SODIUM 137 mmol/L (135-144)
[2019-03-14] MEDS: PANTOPRAZOLE (EC) 40 MG TAB PO (06:34)
[2019-03-14] MEDS: FUROSEMIDE 40 MG TAB PO ×2 (06:34→17:34)
[2019-03-14] MEDS: POLYETHYLENE GLYCOL 17 GM PACKET PO ×2 (09:16→21:00)
[2019-03-14] MEDS: OLOPATADINE 0.1% 5 ML OPH BOTH EYES ×2 (09:16→20:27)
[2019-03-14] MEDS: LORATADINE 10 MG TAB PO (09:17)
[2019-03-14] MEDS: SPIRONOLACTONE 50 MG TAB PO (09:17)
[2019-03-14] MEDS: ESCITALOPRAM 10 MG TAB PO (09:17)
[2019-03-14] MEDS: DOCUSATE SODIUM 100 MG CAP PO ×2 (09:17→20:23)
[2019-03-14] MEDS: ANASTROZOLE 1 MG TAB PO (09:18)
[2019-03-14] MEDS: LIDOCAINE 5% PATCH TD (09:20)
[2019-03-14] MEDS: oxyCODONE (CR) 10 MG TAB [oxyCONTIN] PO ×2 (09:23→20:24)
[2019-03-14] MEDS ORDERED: INDOMETHACIN 25 MG PO (10:30)
[2019-03-14] MEDS: CIPROFLOXACIN HCL OTIC DROP 0.25 ML RIGHT EAR ×3 (13:00→20:23)
[2019-03-14] MEDS: INDOMETHACIN 50 MG PO ×3 (13:56→20:23)
[2019-03-14] MEDS: SOD FERRIC GLUC COMPLX 125 MG in SOD CHLORIDE 0.9% 100 ML IVPB (13:57)
[2019-03-15] MEDS: morphine 4 MG/ML VIAL IV ×2 (05:43→10:57)
[2019-03-15] MEDS: PANTOPRAZOLE (EC) 40 MG TAB PO (05:43)
[2019-03-15] MEDS: FUROSEMIDE 40 MG TAB PO ×2 (06:00→17:51)
[2019-03-15] MEDS: SPIRONOLACTONE 50 MG TAB PO (09:00)
[2019-03-15] MEDS: OLOPATADINE 0.1% 5 ML OPH BOTH EYES ×2 (09:09→20:51)
[2019-03-15] MEDS: oxyCODONE (CR) 10 MG TAB [oxyCONTIN] PO ×2 (09:10→20:54)
[2019-03-15] MEDS: INDOMETHACIN 50 MG PO ×3 (09:11→20:51)
[2019-03-15] MEDS: DOCUSATE SODIUM 100 MG CAP PO ×2 (09:12→20:51)
[2019-03-15] MEDS: ESCITALOPRAM 10 MG TAB PO (09:12)
[2019-03-15] MEDS: LORATADINE 10 MG TAB PO (09:13)
[2019-03-15] MEDS: CIPROFLOXACIN HCL OTIC DROP 0.25 ML RIGHT EAR ×3 (09:16→20:53)
[2019-03-15] MEDS: LIDOCAINE 5% PATCH TD (09:19)
[2019-03-15] MEDS: POLYETHYLENE GLYCOL 17 GM PACKET PO ×2 (09:19→20:53)
[2019-03-15] MEDS: ANASTROZOLE 1 MG TAB PO (09:28)
[2019-03-15] MEDS: SOD CHLORIDE 0.9% 300 ML IV (10:56)
[2019-03-15] MEDS: ALBUMIN HUMAN 25% 50 ML IV (17:50)
[2019-03-16] MEDS: ALBUMIN HUMAN 25% 50 ML IV ×3 (01:03→10:54)
[2019-03-16] MEDS: FUROSEMIDE 40 MG TAB PO ×2 (06:37→18:42)
[2019-03-16] MEDS: morphine 4 MG/ML VIAL IV ×2 (09:18→15:12)
[2019-03-16] MEDS: SPIRONOLACTONE 50 MG TAB PO (10:24)
[2019-03-16] MEDS: LORATADINE 10 MG TAB PO (10:24)
[2019-03-16] MEDS: CIPROFLOXACIN HCL OTIC DROP 0.25 ML RIGHT EAR ×3 (10:24→21:40)
[2019-03-16] MEDS: INDOMETHACIN 50 MG PO ×3 (10:26→21:06)
[2019-03-16] MEDS: oxyCODONE (CR) 10 MG TAB [oxyCONTIN] PO ×3 (10:27→21:04)
[2019-03-16] MEDS: ANASTROZOLE 1 MG TAB PO (10:29)
[2019-03-16] MEDS: LIDOCAINE 5% PATCH TD (10:31)
[2019-03-16] MEDS: OLOPATADINE 0.1% 5 ML OPH BOTH EYES ×2 (10:35→21:09)
[2019-03-16] MEDS: MAGNESIUM SULFATE 2 GM/50 ML 50 ML IVPB (10:44)
[2019-03-16] MEDS: ALBUTEROL/IPRATROPIUM (NEB) 3 ML AMP HHN (21:54)
[2019-03-17 05:19] LABS: ADD MAN DIFF? NO
[2019-03-17 05:34] LABS: WHITE BLOOD COUNT 3.6 10^3/ul (4.8-10.8)
[2019-03-17 05:34] LABS: BASOPHILS % 0.8 % (0.0-2.0); EOSINOPHILS # 0.2 10^3/ul (0.0-0.5); EOSINOPHILS % 5.6 % (0.0-7.0); HEMATOCRIT 30.5 % (37.0-47.0); HEMOGLOBIN 9.7 g/dl (12.0-16.0); LYMPHOCYTES # 1.1 10^3/ul (0.8-2.9); LYMPHOCYTES % 29.8 % (15.0-51.0); MEAN CORPUSCULAR HEMOGLOBIN 31.5 pg (29.0-33.0); MEAN CORPUSCULAR HGB CONC 31.8 g/dl (32.0-37.0); MEAN PLATELET VOLUME 9.4 fl (7.4-10.4); MONOCYTE # 0.5 10^3/ul (0.3-0.9); MONOCYTES % 14.3 % (0.0-11.0); NEUTROPHIL # 1.8 10^3/ul (1.6-7.5); NEUTROPHILS % 49.2 % (39.0-77.0); PLATELET COUNT 199 10^3/UL (140-415); RED BLOOD COUNT 3.08 10^6/ul (4.20-5.40); RED CELL DISTRIBUTION WIDTH 17.4 % (11.5-14.5)
[2019-03-17] MEDS: FUROSEMIDE 40 MG TAB PO ×2 (05:38→17:39)
[2019-03-17 05:55] LABS: ALANINE AMINOTRANSFERASE 23 IU/L (13-69); ALBUMIN 2.7 g/dl (3.3-4.9); ALBUMIN/GLOBULIN RATIO 1.22; ALKALINE PHOSPHATASE 60 IU/L (42-121); ANION GAP 6 (5-13); ASPARTATE AMINO TRANSFERASE 25 IU/L (15-46); BILIRUBIN,INDIRECT 0.5 mg/dl (0-1.1); BILIRUBIN,TOTAL 0.5 mg/dl (0.2-1.3); BLOOD UREA NITROGEN 38 mg/dl (7-20); CALCIUM 8.7 mg/dl (8.4-10.2); CARBON DIOXIDE 29 mmol/L (21-31); CHLORIDE 102 mmol/L (97-110); CREATININE 1.08 mg/dl (0.44-1.00); Estimated GFR 52 mL/min (>60); GLUCOSE 110 mg/dl (70-220); POTASSIUM 4.7 mmol/L (3.5-5.1); SODIUM 137 mmol/L (135-144); TOTAL PROTEIN 4.9 g/dl (6.1-8.1)
[2019-03-17 06:00] LABS: IRON 38 ug/dl (35-150)
[2019-03-17 06:09] LABS: % IRON SATURATION 21 % SAT (22-52); TOTAL IRON BINDING CAPACITY 180 ug/dl (241-421)
[2019-03-17] MEDS: oxyCODONE (CR) 10 MG TAB [oxyCONTIN] PO ×2 (08:52→21:06)
[2019-03-17] MEDS: LORATADINE 10 MG TAB PO (08:53)
[2019-03-17] MEDS: CIPROFLOXACIN HCL OTIC DROP 0.25 ML RIGHT EAR ×2 (08:53→13:00)
[2019-03-17] MEDS: INDOMETHACIN 50 MG PO ×3 (08:53→21:06)
[2019-03-17] MEDS: SPIRONOLACTONE 50 MG TAB PO (08:53)
[2019-03-17] MEDS: ANASTROZOLE 1 MG TAB PO (08:54)
[2019-03-17] MEDS: LIDOCAINE 5% PATCH TD (08:55)
[2019-03-17] MEDS: OLOPATADINE 0.1% 5 ML OPH BOTH EYES ×2 (09:07→21:06)
[2019-03-17] MEDS: ALBUTEROL/IPRATROPIUM (NEB) 3 ML AMP HHN ×2 (09:38→21:29)
[2019-03-17] MEDS: morphine 4 MG/ML VIAL IV ×2 (12:48→22:23)
[2019-03-17] MEDS: CIPROFLOXACIN 0.3% 2.5 ML OPH RIGHT EAR ×2 (16:15→21:06)
[2019-03-18] MEDS: morphine 4 MG/ML VIAL IV ×4 (00:42→23:39)
[2019-03-18] MEDS: FUROSEMIDE 40 MG TAB PO ×2 (06:00→11:10)
[2019-03-18] MEDS: CIPROFLOXACIN 0.3% 2.5 ML OPH RIGHT EAR ×3 (08:28→21:31)
[2019-03-18] MEDS: LORATADINE 10 MG TAB PO (08:28)
[2019-03-18] MEDS: ANASTROZOLE 1 MG TAB PO (08:28)
[2019-03-18] MEDS: SPIRONOLACTONE 50 MG TAB PO (08:28)
[2019-03-18] MEDS: LIDOCAINE 5% PATCH TD (08:29)
[2019-03-18] MEDS: oxyCODONE (CR) 10 MG TAB [oxyCONTIN] PO ×2 (08:29→21:30)
[2019-03-18] MEDS: LIDOCAINE 1% (MPF) 5 ML VIAL ×2 (09:31→09:43)
[2019-03-18] MEDS: OLOPATADINE 0.1% 5 ML OPH BOTH EYES ×2 (11:11→21:34)
[2019-03-18] MEDS: SOD FERRIC GLUC COMPLX 125 MG in SOD CHLORIDE 0.9% 100 ML IVPB (13:24)
[2019-03-18] MEDS: ALBUMIN HUMAN 25% 50 ML IV ×2 (15:27→21:37)
[2019-03-18] MEDS: ALBUTEROL/IPRATROPIUM (NEB) 3 ML AMP HHN (16:17)
[2019-03-18] MEDS: FUROSEMIDE 40 MG INJ IV (19:01)
[2019-03-19] MEDS: ALBUTEROL/IPRATROPIUM (NEB) 3 ML AMP HHN (00:01)
[2019-03-19] MEDS: FUROSEMIDE 40 MG INJ IV ×2 (05:11→17:42)
[2019-03-19 05:43] LABS: ADD MAN DIFF? NO
[2019-03-19 05:53] LABS: BASOPHIL # 0.1 10^3/ul (0.0-0.1); BASOPHILS % 1.4 % (0.0-2.0); EOSINOPHILS # 0.2 10^3/ul (0.0-0.5); EOSINOPHILS % 4.5 % (0.0-7.0); HEMATOCRIT 29.2 % (37.0-47.0); HEMOGLOBIN 9.4 g/dl (12.0-16.0); LYMPHOCYTES # 1.2 10^3/ul (0.8-2.9); MEAN CORPUSCULAR HEMOGLOBIN 31.9 pg (29.0-33.0); MEAN CORPUSCULAR HGB CONC 32.2 g/dl (32.0-37.0); MEAN PLATELET VOLUME 9.1 fl (7.4-10.4); MONOCYTE # 0.6 10^3/ul (0.3-0.9); MONOCYTES % 11.7 % (0.0-11.0); NEUTROPHIL # 2.8 10^3/ul (1.6-7.5); NEUTROPHILS % 57.2 % (39.0-77.0); PLATELET COUNT 202 10^3/UL (140-415); RED BLOOD COUNT 2.95 10^6/ul (4.20-5.40); RED CELL DISTRIBUTION WIDTH 17.4 % (11.5-14.5)
[2019-03-19 05:53] LABS: WHITE BLOOD COUNT 4.9 10^3/ul (4.8-10.8)
[2019-03-19 06:52] LABS: ALANINE AMINOTRANSFERASE 20 IU/L (13-69); ALBUMIN 2.7 g/dl (3.3-4.9); ALBUMIN/GLOBULIN RATIO 1.12; ALKALINE PHOSPHATASE 66 IU/L (42-121); ANION GAP 7 (5-13); ASPARTATE AMINO TRANSFERASE 26 IU/L (15-46); BILIRUBIN,INDIRECT 0.4 mg/dl (0-1.1); BILIRUBIN,TOTAL 0.4 mg/dl (0.2-1.3); BLOOD UREA NITROGEN 49 mg/dl (7-20); CALCIUM 9.1 mg/dl (8.4-10.2); CARBON DIOXIDE 26 mmol/L (21-31); CHLORIDE 104 mmol/L (97-110); CREATININE 1.17 mg/dl (0.44-1.00); Estimated GFR 48 mL/min (>60); GLUCOSE 107 mg/dl (70-220); POTASSIUM 4.6 mmol/L (3.5-5.1); SODIUM 137 mmol/L (135-144); TOTAL PROTEIN 5.1 g/dl (6.1-8.1)
[2019-03-19] MEDS: LIDOCAINE 5% PATCH TD (09:00)
[2019-03-19] MEDS: CIPROFLOXACIN 0.3% 2.5 ML OPH RIGHT EAR (09:46)
[2019-03-19] MEDS: OLOPATADINE 0.1% 5 ML OPH BOTH EYES ×2 (09:47→20:21)
[2019-03-19] MEDS: SPIRONOLACTONE 50 MG TAB PO (09:47)
[2019-03-19] MEDS: oxyCODONE (CR) 10 MG TAB [oxyCONTIN] PO ×2 (09:47→20:23)
[2019-03-19] MEDS: LORATADINE 10 MG TAB PO (09:48)
[2019-03-19] MEDS: ANASTROZOLE 1 MG TAB PO (09:50)
[2019-03-19] MEDS: morphine 4 MG/ML VIAL IV ×2 (10:58→21:44)
[2019-03-19] MEDS: SOD FERRIC GLUC COMPLX 125 MG in SOD CHLORIDE 0.9% 100 ML IVPB (14:36)
[2019-03-19] MEDS: ALBUMIN HUMAN 25% 100 ML IV (17:42)
[2019-03-20 00:10] LABS: ADD UMIC NO; UR ASCORBIC ACID NEGATIVE (NEGATIVE); UR BILIRUBIN (Dip) NEGATIVE (NEGATIVE); UR BLOOD (Dip) NEGATIVE (NEGATIVE); UR CLARITY CLEAR (CLEAR); UR COLOR STRAW (YELLOW); UR GLUCOSE (Dip) NEGATIVE (NEGATIVE); UR KETONES (Dip) NEGATIVE (NEGATIVE); UR LEUKOCYTE ESTERASE (Dip) NEGATIVE Leu/ul (NEGATIVE); UR NITRITE (Dip) NEGATIVE (NEGATIVE); UR SPECIFIC GRAVITY (Dip) 1.006 (1.003-1.030); UR TOTAL PROTEIN (Dip) NEGATIVE (NEGATIVE); UR UROBILINOGEN (Dip) NEGATIVE (NEGATIVE)
[2019-03-20 00:43] LABS: CREATININE,URINE RANDOM 24.56 mg/dl (20-320)
[2019-03-20 00:43] LABS: SODIUM,URINE RANDOM 46 mmol/L (30-90)
[2019-03-20] MEDS: ALBUMIN HUMAN 25% 100 ML IV ×2 (00:50→09:00)
[2019-03-20 05:22] LABS: ADD MAN DIFF? NO
[2019-03-20 05:28] LABS: WHITE BLOOD COUNT 3.8 10^3/ul (4.8-10.8)
[2019-03-20 05:28] LABS: EOSINOPHILS # 0.2 10^3/ul (0.0-0.5); EOSINOPHILS % 4.9 % (0.0-7.0); HEMATOCRIT 27.4 % (37.0-47.0); HEMOGLOBIN 8.7 g/dl (12.0-16.0); LYMPHOCYTES % 25.8 % (15.0-51.0); MEAN CORPUSCULAR HEMOGLOBIN 31.6 pg (29.0-33.0); MEAN CORPUSCULAR HGB CONC 31.8 g/dl (32.0-37.0); MEAN CORPUSCULAR VOLUME 99.6 fl (82.0-101.0); MEAN PLATELET VOLUME 9.5 fl (7.4-10.4); MONOCYTE # 0.5 10^3/ul (0.3-0.9); MONOCYTES % 13.5 % (0.0-11.0); NEUTROPHIL # 2.1 10^3/ul (1.6-7.5); NEUTROPHILS % 54.5 % (39.0-77.0); PLATELET COUNT 172 10^3/UL (140-415); RED BLOOD COUNT 2.75 10^6/ul (4.20-5.40); RED CELL DISTRIBUTION WIDTH 17.4 % (11.5-14.5)
[2019-03-20 06:07] LABS: ANION GAP 7 (5-13); BLOOD UREA NITROGEN 42 mg/dl (7-20); CARBON DIOXIDE 27 mmol/L (21-31); CHLORIDE 104 mmol/L (97-110); Estimated GFR 57 mL/min (>60); GLUCOSE 100 mg/dl (70-220); MAGNESIUM 1.9 mg/dl (1.7-2.5); PHOSPHORUS 5.5 mg/dl (2.5-4.9); POTASSIUM 4.1 mmol/L (3.5-5.1); SODIUM 138 mmol/L (135-144)
[2019-03-20] MEDS: FUROSEMIDE 40 MG INJ IV ×2 (06:24→19:05)
[2019-03-20] MEDS: LIDOCAINE 5% PATCH TD (09:00)
[2019-03-20] MEDS: SPIRONOLACTONE 50 MG TAB PO (09:01)
[2019-03-20] MEDS: OLOPATADINE 0.1% 5 ML OPH BOTH EYES ×2 (09:01→21:00)
[2019-03-20] MEDS: oxyCODONE (CR) 10 MG TAB [oxyCONTIN] PO ×2 (09:02→21:01)
[2019-03-20] MEDS: LORATADINE 10 MG TAB PO (09:02)
[2019-03-20] MEDS: ANASTROZOLE 1 MG TAB PO (09:03)
[2019-03-20] MEDS: SOD FERRIC GLUC COMPLX 125 MG in SOD CHLORIDE 0.9% 100 ML IVPB (13:36)
[2019-03-20] MEDS: METOLAZONE 2.5 MG TAB PO (13:38)
[2019-03-20] MEDS: morphine 4 MG/ML VIAL IV (19:05)
[2019-03-20] MEDS: ALBUMIN HUMAN 25% 50 ML IV (19:06)
[2019-03-20] MEDS: (Nursing Note) XX (22:00)
[2019-03-21 05:01] LABS: ADD MAN DIFF? NO
[2019-03-21] MEDS: FUROSEMIDE 40 MG INJ IV ×2 (05:17→18:00)
[2019-03-21 05:30] LABS: ANION GAP 7 (5-13); BLOOD UREA NITROGEN 32 mg/dl (7-20); CALCIUM 9.2 mg/dl (8.4-10.2); CARBON DIOXIDE 29 mmol/L (21-31); CHLORIDE 103 mmol/L (97-110); CREATININE 0.78 mg/dl (0.44-1.00); Estimated GFR > 60 mL/min (>60); GLUCOSE 97 mg/dl (70-220); MAGNESIUM 1.8 mg/dl (1.7-2.5); PHOSPHORUS 4.7 mg/dl (2.5-4.9); POTASSIUM 3.7 mmol/L (3.5-5.1); SODIUM 139 mmol/L (135-144)
[2019-03-21 08:10] LABS: BASOPHIL # 0.1 10^3/ul (0.0-0.1); BASOPHILS % 1.2 % (0.0-2.0); EOSINOPHILS # 0.1 10^3/ul (0.0-0.5); EOSINOPHILS % 3.4 % (0.0-7.0); HEMATOCRIT 28.8 % (37.0-47.0); HEMOGLOBIN 9.3 g/dl (12.0-16.0); LYMPHOCYTES % 25.2 % (15.0-51.0); MEAN CORPUSCULAR HEMOGLOBIN 31.8 pg (29.0-33.0); MEAN CORPUSCULAR HGB CONC 32.3 g/dl (32.0-37.0); MEAN CORPUSCULAR VOLUME 98.6 fl (82.0-101.0); MEAN PLATELET VOLUME 9.7 fl (7.4-10.4); MONOCYTE # 0.6 10^3/ul (0.3-0.9); MONOCYTES % 15.2 % (0.0-11.0); NEUTROPHIL # 2.3 10^3/ul (1.6-7.5); PLATELET COUNT 194 10^3/UL (140-415); RED BLOOD COUNT 2.92 10^6/ul (4.20-5.40); RED CELL DISTRIBUTION WIDTH 17.4 % (11.5-14.5)
[2019-03-21 08:10] LABS: WHITE BLOOD COUNT 4.1 10^3/ul (4.8-10.8)
[2019-03-21] MEDS: oxyCODONE (CR) 10 MG TAB [oxyCONTIN] PO ×2 (08:58→22:20)
[2019-03-21] MEDS: LORATADINE 10 MG TAB PO (08:59)
[2019-03-21] MEDS: SPIRONOLACTONE 50 MG TAB PO (08:59)
[2019-03-21] MEDS: (Nursing Note) XX ×2 (09:00→21:00)
[2019-03-21] MEDS: ANASTROZOLE 1 MG TAB PO (09:00)
[2019-03-21] MEDS: LIDOCAINE 5% PATCH TD (09:00)
[2019-03-21] MEDS: OLOPATADINE 0.1% 5 ML OPH BOTH EYES ×2 (09:00→21:00)
[2019-03-21] MEDS: morphine 4 MG/ML VIAL IV ×3 (10:07→22:24)
[2019-03-21] MEDS: METOLAZONE 2.5 MG TAB PO (10:47)
[2019-03-21 16:06] LABS: CREATININE, RANDOM URINE 25 mg/dL (20-275); MICROALBUMIN <0.2 mg/dL; MICROALBUMIN/CREATININE RATIO NOTE (<30)
[2019-03-21 16:23] LABS: IRON 74 ug/dl (35-150)
[2019-03-21 16:33] LABS: % IRON SATURATION 44 % SAT (22-52); TOTAL IRON BINDING CAPACITY 170 ug/dl (241-421)
[2019-03-21] MEDS: ONDANSETRON INJ 8 MG in DEXTROSE 5% 50 ML IV (18:25)
[2019-03-21] MEDS: ALBUTEROL/IPRATROPIUM (NEB) 3 ML AMP HHN (19:58)
[2019-03-22 05:23] LABS: ANION GAP 6 (5-13); BLOOD UREA NITROGEN 28 mg/dl (7-20); CALCIUM 8.8 mg/dl (8.4-10.2); CARBON DIOXIDE 32 mmol/L (21-31); CHLORIDE 100 mmol/L (97-110); CREATININE 0.83 mg/dl (0.44-1.00); Estimated GFR > 60 mL/min (>60); GLUCOSE 130 mg/dl (70-220); MAGNESIUM 1.7 mg/dl (1.7-2.5); PHOSPHORUS 5.4 mg/dl (2.5-4.9); SODIUM 138 mmol/L (135-144)
[2019-03-22] MEDS: FUROSEMIDE 40 MG INJ IV ×2 (05:29→17:26)
[2019-03-22] MEDS: LORATADINE 10 MG TAB PO (08:30)
[2019-03-22] MEDS: oxyCODONE (CR) 10 MG TAB [oxyCONTIN] PO ×2 (08:30→20:29)
[2019-03-22] MEDS: SPIRONOLACTONE 50 MG TAB PO (08:31)
[2019-03-22] MEDS: ANASTROZOLE 1 MG TAB PO (08:33)
[2019-03-22] MEDS: LIDOCAINE 5% PATCH TD (08:34)
[2019-03-22] MEDS: MAGNESIUM SULFATE 2 GM/50 ML 50 ML IVPB (08:40)
[2019-03-22] MEDS: (Nursing Note) XX ×2 (08:40→21:00)
[2019-03-22] MEDS: OLOPATADINE 0.1% 5 ML OPH BOTH EYES ×2 (08:41→21:00)
[2019-03-22] MEDS: morphine 4 MG/ML VIAL IV ×2 (14:16→21:20)
[2019-03-22] MEDS: HEPARIN (100 UNITS/ML) 5 ML SYG CATHETER (21:19)
[2019-03-23] MEDS ORDERED: METOLAZONE 2.5 MG TAB PO (09:00)
== END 2019-03-22 21:50 | DRG 981 ==
LOC: TEL 02-17 15:23 → MS1 02-21 16:07 → E/R 13:05 → MS1 14:53
PROC: 0SRR0JA Replacement of Right Hip Joint, Femoral Surface with Synthetic Substitute, Uncemented, Open Approach (ICD-10-PCS; principal; 2019-03-05 13:00)
PROC: 0W9B3ZZ Drainage of Left Pleural Cavity, Percutaneous Approach (ICD-10-PCS; 2019-03-05 13:25)
PROC: 0W9B3ZZ Drainage of Left Pleural Cavity, Percutaneous Approach (ICD-10-PCS; 2019-03-05 13:25)
PROC: 0W9B3ZX Drainage of Left Pleural Cavity, Percutaneous Approach, Diagnostic (ICD-10-PCS; 2019-03-05 13:25)
PROC: 0W9B3ZZ Drainage of Left Pleural Cavity, Percutaneous Approach (ICD-10-PCS; 2019-03-05 13:25)
PROC: 0W9B3ZX Drainage of Left Pleural Cavity, Percutaneous Approach, Diagnostic (ICD-10-PCS; 2019-03-05 13:25)
PROC: 30233N1 Transfusion of Nonautologous Red Blood Cells into Peripheral Vein, Percutaneous Approach (ICD-10-PCS; 2019-03-05 13:25)
PROC: 0W9B3ZZ Drainage of Left Pleural Cavity, Percutaneous Approach (ICD-10-PCS; 2019-03-05 13:25)
PROC: 0W9B3ZZ Drainage of Left Pleural Cavity, Percutaneous Approach (ICD-10-PCS; 2019-03-05 13:25)
DX: C50.912 Malignant neoplasm of unspecified site of left female breast (principal); I50.33 Acute on chronic diastolic (congestive) heart failure; D61.810 Antineoplastic chemotherapy induced pancytopenia; J96.01 Acute respiratory failure with hypoxia; C78.00 Secondary malignant neoplasm of unspecified lung; C78.7 Secondary malignant neoplasm of liver and intrahepatic bile duct; C79.51 Secondary malignant neoplasm of bone; J90 Pleural effusion, not elsewhere classified; M84.55 Pathological fracture in neoplastic disease, pelvis and femur; E87.1 Hypo-osmolality and hyponatremia; I31.3 Pericardial effusion (noninflammatory); E87.3 Alkalosis; N17.9 Acute kidney failure, unspecified; D62 Acute posthemorrhagic anemia; D69.6 Thrombocytopenia, unspecified; I95.9 Hypotension, unspecified; E88.09 Other disorders of plasma-protein metabolism, not elsewhere classified; E87.70 Fluid overload, unspecified; E87.5 Hyperkalemia; D72.819 Decreased white blood cell count, unspecified; E66.9 Obesity, unspecified; Z68.27 Body mass index [BMI] 27.0-27.9, adult; D63.8 Anemia in other chronic diseases classified elsewhere; R00.0 Tachycardia, unspecified; I25.10 Atherosclerotic heart disease of native coronary artery without angina pectoris; R60.1 Generalized edema; E87.6 Hypokalemia; G89.4 Chronic pain syndrome; F41.9 Anxiety disorder, unspecified
CPT/HCPCS: 36415; 36430; 71045; 71046; 71260; 72147; 72149; 72192; 73510; 73530; 73620; 73721; 76604; 76942; 80048; 80053; 80061; 81001; 81003; 82042; 82043; 82150; 82962; 83540; 83605; 83735; 83880; 83935; 84100; 84132; 84133; 84155; 84300; 84439; 84443; 84484; 84560; 85025; 85378; 85610; 85730; 86850; 86900; 86901; 86920; 87040-91; 87081; 87086; 88104; 88107; 88304; 88305; 88311; 88341; 88342; 93005; 93308; 93971; 94640; 94664; 97110; 97116; 97162; 97165; 97530; 97535; 99285-25

== ENCOUNTER 2019-03-25 14:47 | Inpatient (IN) | payer OTHER ==
[2019-03-25 15:38] LABS: ADD MAN DIFF? NO; BASOPHILS % 0.7 % (0.0-2.0); EOSINOPHILS # 0.1 10^3/ul (0.0-0.5); EOSINOPHILS % 0.9 % (0.0-7.0); HEMATOCRIT 35.2 % (37.0-47.0); HEMOGLOBIN 11.4 g/dl (12.0-16.0); LYMPHOCYTES % 18.3 % (15.0-51.0); MEAN CORPUSCULAR HEMOGLOBIN 31.8 pg (29.0-33.0); MEAN CORPUSCULAR HGB CONC 32.4 g/dl (32.0-37.0); MEAN CORPUSCULAR VOLUME 98.3 fl (82.0-101.0); MEAN PLATELET VOLUME 8.6 fl (7.4-10.4); MONOCYTE # 0.5 10^3/ul (0.3-0.9); MONOCYTES % 9.7 % (0.0-11.0); NEUTROPHIL # 3.8 10^3/ul (1.6-7.5); NEUTROPHILS % 70.2 % (39.0-77.0); PLATELET COUNT 224 10^3/UL (140-415); RED BLOOD COUNT 3.58 10^6/ul (4.20-5.40); RED CELL DISTRIBUTION WIDTH 16.9 % (11.5-14.5)
[2019-03-25 15:38] LABS: WHITE BLOOD COUNT 5.5 10^3/ul (4.8-10.8)
[2019-03-25 15:59] LABS: INR 1.01; PARTIAL THROMBOPLASTIN TIME 30.3 Sec (23.0-35.0); PROTIME 13.4 Sec (11.9-14.9)
[2019-03-25 16:12] LABS: ALANINE AMINOTRANSFERASE 26 IU/L (13-69); ALBUMIN 3.5 g/dl (3.3-4.9); ALBUMIN/GLOBULIN RATIO 1.29; ALKALINE PHOSPHATASE 74 IU/L (42-121); ANION GAP 7 (5-13); ASPARTATE AMINO TRANSFERASE 30 IU/L (15-46); BILIRUBIN,INDIRECT 0.6 mg/dl (0-1.1); BILIRUBIN,TOTAL 0.6 mg/dl (0.2-1.3); BLOOD UREA NITROGEN 13 mg/dl (7-20); CALCIUM 9.2 mg/dl (8.4-10.2); CARBON DIOXIDE 34 mmol/L (21-31); CHLORIDE 98 mmol/L (97-110); CREATININE 0.61 mg/dl (0.44-1.00); Estimated GFR > 60 mL/min (>60); GLUCOSE 108 mg/dl (70-220); POTASSIUM 3.5 mmol/L (3.5-5.1); SODIUM 139 mmol/L (135-144); TOTAL PROTEIN 6.2 g/dl (6.1-8.1)
[2019-03-25 16:20] LABS: B-TYPE NATRIURETIC PEPTIDE 1150 PG/ML (0-125)
[2019-03-25 16:23] LABS: TROPONIN-I < 0.012 ng/ml (0.000-0.120)
[2019-03-25] MEDS: FUROSEMIDE 40 MG INJ IV (16:44)
[2019-03-25] MEDS: IOHEXOL 100 ML (17:33)
[2019-03-25] MEDS: SOD CHLORIDE 0.9% 100 ML (17:33)
[2019-03-25 19:35] LABS: LACTIC ACID 1.2 mmol/L (0.5-2.0)
[2019-03-26] MEDS: ENALAPRIL 2.5 MG TAB PO (01:29)
[2019-03-26] MEDS: ZOLPIDEM 5 MG TAB PO ×2 (01:29→21:20)
[2019-03-26] MEDS: BISACODYL 10 MG SUPP PR ×4 (06:00→22:00)
[2019-03-26] MEDS: FUROSEMIDE 40 MG INJ IV ×2 (06:07→17:19)
[2019-03-26] MEDS: PANTOPRAZOLE (EC) 40 MG TAB PO (07:25)
[2019-03-26] MEDS: ESCITALOPRAM 10 MG TAB PO (08:11)
[2019-03-26] MEDS: POTASSIUM CHLORIDE (SR) 20 MEQ TAB PO ×3 (08:11→21:18)
[2019-03-26] MEDS: AMLODIPINE 5 MG TAB PO (08:11)
[2019-03-26] MEDS: BENAZEPRIL 5 MG TAB PO (08:12)
[2019-03-26] MEDS: SPIRONOLACTONE 50 MG TAB PO (08:12)
[2019-03-26] MEDS: LORATADINE 10 MG TAB PO (08:12)
[2019-03-26] MEDS: oxyCODONE (CR) 20 MG TAB [oxyCONTIN] PO ×2 (08:13→21:19)
[2019-03-26] MEDS: MAGNESIUM HYDROXIDE 30ML CUP PO (08:13)
[2019-03-26] MEDS: DOCUSATE SODIUM 100 MG CAP PO ×2 (08:13→21:00)
[2019-03-26] MEDS: POLYETHYLENE GLYCOL 17 GM PACKET PO (08:13)
[2019-03-26] MEDS: OLOPATADINE 0.1% 5 ML OPH BOTH EYES ×2 (08:14→21:24)
[2019-03-26] MEDS: ALBUTEROL/IPRATROPIUM (NEB) 3 ML AMP HHN ×3 (08:21→16:00)
[2019-03-26] MEDS ORDERED: FUROSEMIDE 40 MG TAB PO (09:00)
[2019-03-26] MEDS: LIDOCAINE 1% (MPF) 5 ML VIAL (09:40)
[2019-03-26] MEDS: ANASTROZOLE 1 MG TAB PO (11:34)
[2019-03-26] MEDS: METOLAZONE 2.5 MG TAB PO (18:09)
[2019-03-27] MEDS: BISACODYL 10 MG SUPP PR ×3 (05:22→22:00)
[2019-03-27] MEDS: PANTOPRAZOLE (EC) 40 MG TAB PO (06:50)
[2019-03-27] MEDS: FUROSEMIDE 40 MG INJ IV ×2 (06:50→18:28)
[2019-03-27 07:01] LABS: ADD MAN DIFF? NO
[2019-03-27 07:06] LABS: BASOPHIL # 0.1 10^3/ul (0.0-0.1); BASOPHILS % 1.3 % (0.0-2.0); EOSINOPHILS # 0.3 10^3/ul (0.0-0.5); EOSINOPHILS % 6.3 % (0.0-7.0); HEMATOCRIT 30.6 % (37.0-47.0); HEMOGLOBIN 9.6 g/dl (12.0-16.0); LYMPHOCYTES # 1.5 10^3/ul (0.8-2.9); LYMPHOCYTES % 33.6 % (15.0-51.0); MEAN CORPUSCULAR HEMOGLOBIN 31.7 pg (29.0-33.0); MEAN CORPUSCULAR HGB CONC 31.4 g/dl (32.0-37.0); MONOCYTE # 0.7 10^3/ul (0.3-0.9); MONOCYTES % 14.6 % (0.0-11.0); NEUTROPHILS % 43.8 % (39.0-77.0); PLATELET COUNT 227 10^3/UL (140-415); RED BLOOD COUNT 3.03 10^6/ul (4.20-5.40); RED CELL DISTRIBUTION WIDTH 17.7 % (11.5-14.5)
[2019-03-27 07:06] LABS: WHITE BLOOD COUNT 4.5 10^3/ul (4.8-10.8)
[2019-03-27 07:28] LABS: ALANINE AMINOTRANSFERASE 29 IU/L (13-69); ALBUMIN/GLOBULIN RATIO 1.15; ALKALINE PHOSPHATASE 71 IU/L (42-121); ANION GAP 5 (5-13); ASPARTATE AMINO TRANSFERASE 33 IU/L (15-46); BILIRUBIN,INDIRECT 0.5 mg/dl (0-1.1); BILIRUBIN,TOTAL 0.5 mg/dl (0.2-1.3); BLOOD UREA NITROGEN 15 mg/dl (7-20); CALCIUM 8.4 mg/dl (8.4-10.2); CARBON DIOXIDE 34 mmol/L (21-31); CHLORIDE 100 mmol/L (97-110); CREATININE 0.77 mg/dl (0.44-1.00); Estimated GFR > 60 mL/min (>60); GLUCOSE 92 mg/dl (70-220); POTASSIUM 3.8 mmol/L (3.5-5.1); SODIUM 139 mmol/L (135-144); TOTAL PROTEIN 5.6 g/dl (6.1-8.1)
[2019-03-27 07:34] LABS: ANION GAP 6 (5-13); BLOOD UREA NITROGEN 16 mg/dl (7-20); CALCIUM 8.6 mg/dl (8.4-10.2); CARBON DIOXIDE 34 mmol/L (21-31); CHLORIDE 99 mmol/L (97-110); CREATININE 0.71 mg/dl (0.44-1.00); Estimated GFR > 60 mL/min (>60); GLUCOSE 88 mg/dl (70-220); MAGNESIUM 1.7 mg/dl (1.7-2.5); PHOSPHORUS 4.1 mg/dl (2.5-4.9); POTASSIUM 3.9 mmol/L (3.5-5.1); SODIUM 139 mmol/L (135-144)
[2019-03-27] MEDS: ALBUTEROL/IPRATROPIUM (NEB) 3 ML AMP HHN ×3 (07:48→16:20)
[2019-03-27] MEDS: DOCUSATE SODIUM 100 MG CAP PO ×2 (09:00→20:34)
[2019-03-27] MEDS: MAGNESIUM HYDROXIDE 30ML CUP PO (09:00)
[2019-03-27] MEDS: POLYETHYLENE GLYCOL 17 GM PACKET PO (09:00)
[2019-03-27] MEDS: ESCITALOPRAM 10 MG TAB PO (09:50)
[2019-03-27] MEDS: METOLAZONE 5 MG TAB PO (09:51)
[2019-03-27] MEDS: AMLODIPINE 5 MG TAB PO (09:51)
[2019-03-27] MEDS: POTASSIUM CHLORIDE (SR) 20 MEQ TAB PO ×2 (09:51→20:34)
[2019-03-27] MEDS: OLOPATADINE 0.1% 5 ML OPH BOTH EYES ×2 (09:51→20:33)
[2019-03-27] MEDS: LORATADINE 10 MG TAB PO (09:51)
[2019-03-27] MEDS: SPIRONOLACTONE 50 MG TAB PO (09:51)
[2019-03-27] MEDS: BENAZEPRIL 5 MG TAB PO (09:51)
[2019-03-27] MEDS: oxyCODONE (CR) 20 MG TAB [oxyCONTIN] PO ×2 (09:52→20:36)
[2019-03-27] MEDS: ANASTROZOLE 1 MG TAB PO (10:05)
[2019-03-27] MEDS: morphine 2 MG INJ IV (14:15)
[2019-03-27] MEDS: ALBUMIN HUMAN 25% 100 ML IV (20:35)
[2019-03-28] MEDS: ALBUMIN HUMAN 25% 100 ML IV ×3 (03:45→23:26)
[2019-03-28] MEDS: BISACODYL 10 MG SUPP PR ×3 (05:57→22:00)
[2019-03-28] MEDS: PANTOPRAZOLE (EC) 40 MG TAB PO (06:34)
[2019-03-28] MEDS: FUROSEMIDE 40 MG INJ IV ×2 (06:38→17:48)
[2019-03-28] MEDS: ALBUTEROL/IPRATROPIUM (NEB) 3 ML AMP HHN ×3 (08:00→16:00)
[2019-03-28 08:21] LABS: ADD MAN DIFF? NO
[2019-03-28 08:26] LABS: EOSINOPHILS # 0.2 10^3/ul (0.0-0.5); EOSINOPHILS % 5.9 % (0.0-7.0); HEMATOCRIT 29.3 % (37.0-47.0); HEMOGLOBIN 9.3 g/dl (12.0-16.0); LYMPHOCYTES # 1.3 10^3/ul (0.8-2.9); LYMPHOCYTES % 33.8 % (15.0-51.0); MEAN CORPUSCULAR HEMOGLOBIN 31.8 pg (29.0-33.0); MEAN CORPUSCULAR HGB CONC 31.7 g/dl (32.0-37.0); MEAN CORPUSCULAR VOLUME 100.3 fl (82.0-101.0); MEAN PLATELET VOLUME 8.9 fl (7.4-10.4); MONOCYTE # 0.5 10^3/ul (0.3-0.9); MONOCYTES % 12.3 % (0.0-11.0); NEUTROPHIL # 1.8 10^3/ul (1.6-7.5); NEUTROPHILS % 46.7 % (39.0-77.0); PLATELET COUNT 187 10^3/UL (140-415); RED BLOOD COUNT 2.92 10^6/ul (4.20-5.40); RED CELL DISTRIBUTION WIDTH 17.6 % (11.5-14.5)
[2019-03-28 08:26] LABS: WHITE BLOOD COUNT 3.9 10^3/ul (4.8-10.8)
[2019-03-28] MEDS: OLOPATADINE 0.1% 5 ML OPH BOTH EYES ×2 (08:42→22:09)
[2019-03-28] MEDS: ESCITALOPRAM 10 MG TAB PO (08:42)
[2019-03-28] MEDS: MAGNESIUM HYDROXIDE 30ML CUP PO (08:42)
[2019-03-28] MEDS: LORATADINE 10 MG TAB PO (08:43)
[2019-03-28] MEDS: DOCUSATE SODIUM 100 MG CAP PO ×2 (08:43→22:10)
[2019-03-28] MEDS: POTASSIUM CHLORIDE (SR) 20 MEQ TAB PO ×2 (08:43→22:11)
[2019-03-28] MEDS: SPIRONOLACTONE 50 MG TAB PO (08:44)
[2019-03-28] MEDS: AMLODIPINE 5 MG TAB PO (08:44)
[2019-03-28] MEDS: BENAZEPRIL 5 MG TAB PO (08:44)
[2019-03-28] MEDS: ANASTROZOLE 1 MG TAB PO (08:46)
[2019-03-28] MEDS: POLYETHYLENE GLYCOL 17 GM PACKET PO (08:48)
[2019-03-28 08:54] LABS: ANION GAP 8 (5-13); BLOOD UREA NITROGEN 25 mg/dl (7-20); CALCIUM 8.7 mg/dl (8.4-10.2); CARBON DIOXIDE 32 mmol/L (21-31); CHLORIDE 97 mmol/L (97-110); CREATININE 0.98 mg/dl (0.44-1.00); Estimated GFR 58 mL/min (>60); GLUCOSE 94 mg/dl (70-220); MAGNESIUM 1.8 mg/dl (1.7-2.5); PHOSPHORUS 5.2 mg/dl (2.5-4.9); SODIUM 137 mmol/L (135-144)
[2019-03-28] MEDS: oxyCODONE (CR) 20 MG TAB [oxyCONTIN] PO ×2 (08:55→22:11)
[2019-03-28] MEDS: METOLAZONE 5 MG TAB PO (11:00)
[2019-03-29] MEDS: BISACODYL 10 MG SUPP PR ×3 (05:54→22:00)
[2019-03-29] MEDS: PANTOPRAZOLE (EC) 40 MG TAB PO (05:55)
[2019-03-29] MEDS: ALBUMIN HUMAN 25% 100 ML IV ×2 (05:55→15:41)
[2019-03-29] MEDS: FUROSEMIDE 40 MG INJ IV ×2 (06:00→18:13)
[2019-03-29 07:43] LABS: ANION GAP 9 (5-13); BLOOD UREA NITROGEN 26 mg/dl (7-20); CALCIUM 9.3 mg/dl (8.4-10.2); CARBON DIOXIDE 33 mmol/L (21-31); CHLORIDE 95 mmol/L (97-110); CREATININE 0.81 mg/dl (0.44-1.00); Estimated GFR > 60 mL/min (>60); GLUCOSE 93 mg/dl (70-220); MAGNESIUM 1.9 mg/dl (1.7-2.5); POTASSIUM 4.1 mmol/L (3.5-5.1); SODIUM 137 mmol/L (135-144)
[2019-03-29] MEDS: ALBUTEROL/IPRATROPIUM (NEB) 3 ML AMP HHN ×3 (08:00→23:50)
[2019-03-29] MEDS: BENAZEPRIL 5 MG TAB PO (08:47)
[2019-03-29] MEDS: ESCITALOPRAM 10 MG TAB PO (08:49)
[2019-03-29] MEDS: POTASSIUM CHLORIDE (SR) 20 MEQ TAB PO ×2 (08:49→20:40)
[2019-03-29] MEDS: oxyCODONE (CR) 20 MG TAB [oxyCONTIN] PO ×2 (08:49→20:40)
[2019-03-29] MEDS: LORATADINE 10 MG TAB PO (08:49)
[2019-03-29] MEDS: ANASTROZOLE 1 MG TAB PO (08:50)
[2019-03-29] MEDS: DOCUSATE SODIUM 100 MG CAP PO ×2 (08:50→20:41)
[2019-03-29] MEDS: SPIRONOLACTONE 50 MG TAB PO (08:50)
[2019-03-29] MEDS: OLOPATADINE 0.1% 5 ML OPH BOTH EYES ×2 (08:51→20:39)
[2019-03-29] MEDS: MAGNESIUM HYDROXIDE 30ML CUP PO (08:52)
[2019-03-29] MEDS: POLYETHYLENE GLYCOL 17 GM PACKET PO (08:52)
[2019-03-30 05:21] LABS: ADD MAN DIFF? NO
[2019-03-30 05:25] LABS: BASOPHILS % 0.9 % (0.0-2.0); EOSINOPHILS # 0.1 10^3/ul (0.0-0.5); EOSINOPHILS % 4.1 % (0.0-7.0); HEMATOCRIT 30.3 % (37.0-47.0); HEMOGLOBIN 9.7 g/dl (12.0-16.0); LYMPHOCYTES # 1.1 10^3/ul (0.8-2.9); LYMPHOCYTES % 31.7 % (15.0-51.0); MEAN CORPUSCULAR HEMOGLOBIN 32.2 pg (29.0-33.0); MEAN CORPUSCULAR VOLUME 100.7 fl (82.0-101.0); MEAN PLATELET VOLUME 9.1 fl (7.4-10.4); MONOCYTE # 0.6 10^3/ul (0.3-0.9); MONOCYTES % 16.6 % (0.0-11.0); NEUTROPHIL # 1.6 10^3/ul (1.6-7.5); NEUTROPHILS % 46.7 % (39.0-77.0); PLATELET COUNT 183 10^3/UL (140-415); RED BLOOD COUNT 3.01 10^6/ul (4.20-5.40); RED CELL DISTRIBUTION WIDTH 17.3 % (11.5-14.5)
[2019-03-30 05:25] LABS: WHITE BLOOD COUNT 3.4 10^3/ul (4.8-10.8)
[2019-03-30] MEDS: FUROSEMIDE 40 MG TAB PO ×2 (05:36→17:32)
[2019-03-30] MEDS: BISACODYL 10 MG SUPP PR ×4 (05:42→23:49)
[2019-03-30 05:49] LABS: ANION GAP 8 (5-13); BLOOD UREA NITROGEN 24 mg/dl (7-20); CALCIUM 9.6 mg/dl (8.4-10.2); CARBON DIOXIDE 36 mmol/L (21-31); CHLORIDE 93 mmol/L (97-110); CREATININE 0.86 mg/dl (0.44-1.00); Estimated GFR > 60 mL/min (>60); GLUCOSE 101 mg/dl (70-220); MAGNESIUM 1.9 mg/dl (1.7-2.5); PHOSPHORUS 4.7 mg/dl (2.5-4.9); POTASSIUM 4.3 mmol/L (3.5-5.1); SODIUM 137 mmol/L (135-144)
[2019-03-30] MEDS: ALBUTEROL/IPRATROPIUM (NEB) 3 ML AMP HHN ×2 (08:00→14:58)
[2019-03-30] MEDS: POLYETHYLENE GLYCOL 17 GM PACKET PO (09:00)
[2019-03-30] MEDS: MAGNESIUM HYDROXIDE 30ML CUP PO (09:00)
[2019-03-30] MEDS: ESCITALOPRAM 10 MG TAB PO (10:20)
[2019-03-30] MEDS: LORATADINE 10 MG TAB PO (10:20)
[2019-03-30] MEDS: POTASSIUM CHLORIDE (SR) 20 MEQ TAB PO ×2 (10:20→20:25)
[2019-03-30] MEDS: DOCUSATE SODIUM 100 MG CAP PO ×2 (10:20→20:23)
[2019-03-30] MEDS: oxyCODONE (CR) 20 MG TAB [oxyCONTIN] PO ×2 (10:20→20:24)
[2019-03-30] MEDS: PANTOPRAZOLE (EC) 40 MG TAB PO (10:21)
[2019-03-30] MEDS: ANASTROZOLE 1 MG TAB PO (10:24)
[2019-03-30] MEDS: BENAZEPRIL 5 MG TAB PO (10:25)
[2019-03-30] MEDS: SPIRONOLACTONE 50 MG TAB PO (10:26)
[2019-03-30] MEDS: LIDOCAINE 1% (MPF) 5 ML VIAL (14:20)
[2019-03-30] MEDS: ACETAMINOPHEN 325 MG TAB PO (20:23)
[2019-03-31] MEDS: ALBUTEROL/IPRATROPIUM (NEB) 3 ML AMP HHN ×4 (03:01→23:49)
[2019-03-31] MEDS: FUROSEMIDE 40 MG TAB PO ×3 (05:49→20:59)
[2019-03-31] MEDS: PANTOPRAZOLE (EC) 40 MG TAB PO (05:49)
[2019-03-31] MEDS: BISACODYL 10 MG SUPP PR ×3 (06:00→22:00)
[2019-03-31] MEDS: POTASSIUM CHLORIDE (SR) 20 MEQ TAB PO ×2 (08:13→20:59)
[2019-03-31] MEDS: LORATADINE 10 MG TAB PO (08:13)
[2019-03-31] MEDS: DOCUSATE SODIUM 100 MG CAP PO ×2 (08:13→20:59)
[2019-03-31] MEDS: oxyCODONE (CR) 20 MG TAB [oxyCONTIN] PO ×2 (08:14→20:57)
[2019-03-31] MEDS: SPIRONOLACTONE 50 MG TAB PO (08:14)
[2019-03-31] MEDS: ESCITALOPRAM 10 MG TAB PO (08:14)
[2019-03-31] MEDS: BENAZEPRIL 5 MG TAB PO (08:15)
[2019-03-31] MEDS: MAGNESIUM HYDROXIDE 30ML CUP PO (08:16)
[2019-03-31] MEDS: POLYETHYLENE GLYCOL 17 GM PACKET PO (08:16)
[2019-03-31] MEDS: ANASTROZOLE 1 MG TAB PO (08:16)
[2019-03-31] MEDS: CEPASTAT LOZENGE MT (23:14)
[2019-04-01] MEDS: GUAIFENESIN/CODEINE 5ML CUP PO ×2 (03:13→22:42)
[2019-04-01] MEDS: PANTOPRAZOLE (EC) 40 MG TAB PO (05:39)
[2019-04-01] MEDS: FUROSEMIDE 40 MG TAB PO ×2 (05:40→20:02)
[2019-04-01 05:52] LABS: ADD MAN DIFF? NO
[2019-04-01] MEDS: BISACODYL 10 MG SUPP PR ×3 (05:53→21:22)
[2019-04-01 06:01] LABS: WHITE BLOOD COUNT 2.3 10^3/ul (4.8-10.8)
[2019-04-01 06:01] LABS: ABNORMAL IP MESSAGE 1; BASOPHILS % 0.9 % (0.0-2.0); EOSINOPHILS % 1.7 % (0.0-7.0); HEMATOCRIT 32.7 % (37.0-47.0); HEMOGLOBIN 10.3 g/dl (12.0-16.0); LYMPHOCYTES # 1.1 10^3/ul (0.8-2.9); LYMPHOCYTES % 49.1 % (15.0-51.0); MEAN CORPUSCULAR HEMOGLOBIN 31.7 pg (29.0-33.0); MEAN CORPUSCULAR HGB CONC 31.5 g/dl (32.0-37.0); MEAN CORPUSCULAR VOLUME 100.6 fl (82.0-101.0); MEAN PLATELET VOLUME 9.4 fl (7.4-10.4); MONOCYTE # 0.5 10^3/ul (0.3-0.9); MONOCYTES % 22.4 % (0.0-11.0); NEUTROPHIL # 0.6 10^3/ul (1.6-7.5); NEUTROPHILS % 25.5 % (39.0-77.0); PLATELET COUNT 188 10^3/UL (140-415); RED BLOOD COUNT 3.25 10^6/ul (4.20-5.40); RED CELL DISTRIBUTION WIDTH 17.2 % (11.5-14.5)
[2019-04-01 06:39] LABS: ANION GAP 9 (5-13); BLOOD UREA NITROGEN 28 mg/dl (7-20); CALCIUM 8.9 mg/dl (8.4-10.2); CARBON DIOXIDE 33 mmol/L (21-31); CHLORIDE 96 mmol/L (97-110); CREATININE 0.87 mg/dl (0.44-1.00); Estimated GFR > 60 mL/min (>60); GLUCOSE 96 mg/dl (70-220); POTASSIUM 3.9 mmol/L (3.5-5.1); SODIUM 138 mmol/L (135-144)
[2019-04-01 06:40] LABS: IRON 73 ug/dl (35-150)
[2019-04-01 06:49] LABS: % IRON SATURATION 37 % SAT (22-52); TOTAL IRON BINDING CAPACITY 200 ug/dl (241-421)
[2019-04-01 07:01] LABS: POSITIVE DIFF @See below
[2019-04-01] MEDS: ALBUTEROL/IPRATROPIUM (NEB) 3 ML AMP HHN ×3 (08:00→23:53)
[2019-04-01] MEDS ORDERED: ACETAZOLAMIDE 500 MG INJ IV (08:30)
[2019-04-01] MEDS: ACETAZOLAMIDE (SR) 500 MG CAP PO (10:06)
[2019-04-01] MEDS: LORATADINE 10 MG TAB PO (10:07)
[2019-04-01] MEDS: ESCITALOPRAM 10 MG TAB PO (10:07)
[2019-04-01] MEDS: POTASSIUM CHLORIDE (SR) 20 MEQ TAB PO ×2 (10:07→21:19)
[2019-04-01] MEDS: DOCUSATE SODIUM 100 MG CAP PO ×2 (10:09→21:19)
[2019-04-01] MEDS: BENAZEPRIL 5 MG TAB PO (10:09)
[2019-04-01] MEDS: SPIRONOLACTONE 50 MG TAB PO (10:09)
[2019-04-01] MEDS: oxyCODONE (CR) 20 MG TAB [oxyCONTIN] PO ×2 (10:09→21:20)
[2019-04-01] MEDS: ANASTROZOLE 1 MG TAB PO (10:11)
[2019-04-01] MEDS: POLYETHYLENE GLYCOL 17 GM PACKET PO (10:11)
[2019-04-01] MEDS: MAGNESIUM HYDROXIDE 30ML CUP PO (10:11)
[2019-04-01] MEDS: CEPASTAT LOZENGE MT (21:19)
[2019-04-02] MEDS: CEPASTAT LOZENGE MT (04:49)
[2019-04-02] MEDS: PANTOPRAZOLE (EC) 40 MG TAB PO (04:50)
[2019-04-02] MEDS: FUROSEMIDE 40 MG TAB PO ×2 (04:50→17:20)
[2019-04-02] MEDS: BISACODYL 10 MG SUPP PR ×3 (05:38→22:00)
[2019-04-02 06:15] LABS: ANION GAP 10 (5-13); BLOOD UREA NITROGEN 30 mg/dl (7-20); CALCIUM 9.2 mg/dl (8.4-10.2); CARBON DIOXIDE 32 mmol/L (21-31); CHLORIDE 95 mmol/L (97-110); Estimated GFR 51 mL/min (>60); GLUCOSE 96 mg/dl (70-220); MAGNESIUM 1.9 mg/dl (1.7-2.5); PHOSPHORUS 5.2 mg/dl (2.5-4.9); SODIUM 137 mmol/L (135-144)
[2019-04-02] MEDS: ALBUTEROL/IPRATROPIUM (NEB) 3 ML AMP HHN ×3 (08:32→23:19)
[2019-04-02] MEDS: POLYETHYLENE GLYCOL 17 GM PACKET PO ×2 (09:00→16:20)
[2019-04-02] MEDS: BENAZEPRIL 5 MG TAB PO (09:00)
[2019-04-02] MEDS: MAGNESIUM HYDROXIDE 30ML CUP PO (09:00)
[2019-04-02 09:17] LABS: ADD MAN DIFF? NO
[2019-04-02 09:20] LABS: ABNORMAL IP MESSAGE 1; EOSINOPHILS # 0.1 10^3/ul (0.0-0.5); EOSINOPHILS % 2.4 % (0.0-7.0); HEMATOCRIT 33.5 % (37.0-47.0); HEMOGLOBIN 10.4 g/dl (12.0-16.0); LYMPHOCYTES # 1.3 10^3/ul (0.8-2.9); LYMPHOCYTES % 46.7 % (15.0-51.0); MEAN CORPUSCULAR HEMOGLOBIN 32.2 pg (29.0-33.0); MEAN CORPUSCULAR VOLUME 103.7 fl (82.0-101.0); MEAN PLATELET VOLUME 10.3 fl (7.4-10.4); MONOCYTE # 0.5 10^3/ul (0.3-0.9); MONOCYTES % 17.8 % (0.0-11.0); NEUTROPHIL # 0.9 10^3/ul (1.6-7.5); NEUTROPHILS % 32.1 % (39.0-77.0); PLATELET COUNT 211 10^3/UL (140-415); RED BLOOD COUNT 3.23 10^6/ul (4.20-5.40); RED CELL DISTRIBUTION WIDTH 16.9 % (11.5-14.5)
[2019-04-02 09:20] LABS: WHITE BLOOD COUNT 2.9 10^3/ul (4.8-10.8)
[2019-04-02] MEDS: POTASSIUM CHLORIDE (SR) 20 MEQ TAB PO ×2 (09:39→22:12)
[2019-04-02] MEDS: oxyCODONE (CR) 20 MG TAB [oxyCONTIN] PO ×2 (09:39→22:12)
[2019-04-02] MEDS: ESCITALOPRAM 10 MG TAB PO (09:40)
[2019-04-02] MEDS: LORATADINE 10 MG TAB PO (09:40)
[2019-04-02] MEDS: DOCUSATE SODIUM 100 MG CAP PO ×2 (09:40→22:11)
[2019-04-02] MEDS: SPIRONOLACTONE 50 MG TAB PO (09:40)
[2019-04-02 09:45] LABS: POSITIVE DIFF @See below
[2019-04-02] MEDS: ACETAZOLAMIDE 250 MG TAB PO ×2 (09:48→22:12)
[2019-04-02] MEDS: ANASTROZOLE 1 MG TAB PO (11:33)
[2019-04-02] MEDS: GUAIFENESIN/CODEINE 5ML CUP PO ×2 (12:16→22:13)
[2019-04-02] MEDS: ACETAMINOPHEN 325 MG TAB PO (17:15)
[2019-04-02] MEDS: FLUTICASONE 0.05% 16 GM NAS SPRAY NASAL (22:11)
[2019-04-03 05:32] LABS: ADD MAN DIFF? NO
[2019-04-03 05:41] LABS: ABNORMAL IP MESSAGE 1; BASOPHILS % 0.8 % (0.0-2.0); EOSINOPHILS % 0.8 % (0.0-7.0); HEMATOCRIT 29.7 % (37.0-47.0); HEMOGLOBIN 9.5 g/dl (12.0-16.0); LYMPHOCYTES # 1.1 10^3/ul (0.8-2.9); LYMPHOCYTES % 46.2 % (15.0-51.0); MEAN CORPUSCULAR HEMOGLOBIN 32.6 pg (29.0-33.0); MEAN CORPUSCULAR VOLUME 102.1 fl (82.0-101.0); MEAN PLATELET VOLUME 9.1 fl (7.4-10.4); MONOCYTE # 0.5 10^3/ul (0.3-0.9); MONOCYTES % 20.2 % (0.0-11.0); NEUTROPHIL # 0.8 10^3/ul (1.6-7.5); RED BLOOD COUNT 2.91 10^6/ul (4.20-5.40); RED CELL DISTRIBUTION WIDTH 16.5 % (11.5-14.5)
[2019-04-03 05:41] LABS: WHITE BLOOD COUNT 2.5 10^3/ul (4.8-10.8)
[2019-04-03] MEDS: BISACODYL 10 MG SUPP PR ×3 (06:00→22:00)
[2019-04-03 06:16] LABS: ANION GAP 9 (5-13); BLOOD UREA NITROGEN 26 mg/dl (7-20); CARBON DIOXIDE 28 mmol/L (21-31); CHLORIDE 98 mmol/L (97-110); CREATININE 0.93 mg/dl (0.44-1.00); Estimated GFR > 60 mL/min (>60); GLUCOSE 100 mg/dl (70-220); POTASSIUM 4.1 mmol/L (3.5-5.1); SODIUM 135 mmol/L (135-144)
[2019-04-03 06:18] LABS: ALANINE AMINOTRANSFERASE 25 IU/L (13-69); ALBUMIN 3.4 g/dl (3.3-4.9); ALBUMIN/GLOBULIN RATIO 1.21; ALKALINE PHOSPHATASE 66 IU/L (42-121); ANION GAP 8 (5-13); ASPARTATE AMINO TRANSFERASE 33 IU/L (15-46); BILIRUBIN,INDIRECT 0.5 mg/dl (0-1.1); BILIRUBIN,TOTAL 0.5 mg/dl (0.2-1.3); BLOOD UREA NITROGEN 24 mg/dl (7-20); CALCIUM 8.8 mg/dl (8.4-10.2); CARBON DIOXIDE 28 mmol/L (21-31); CHLORIDE 100 mmol/L (97-110); CREATININE 0.91 mg/dl (0.44-1.00); Estimated GFR > 60 mL/min (>60); GLUCOSE 102 mg/dl (70-220); POTASSIUM 4.1 mmol/L (3.5-5.1); SODIUM 136 mmol/L (135-144); TOTAL PROTEIN 6.2 g/dl (6.1-8.1)
[2019-04-03] MEDS: PANTOPRAZOLE (EC) 40 MG TAB PO (06:36)
[2019-04-03] MEDS: FUROSEMIDE 40 MG TAB PO ×2 (06:38→19:23)
[2019-04-03 06:57] LABS: POSITIVE DIFF @See below
[2019-04-03 06:58] LABS: PLATELET COUNT 153 10^3/UL (140-415)
[2019-04-03] MEDS: ALBUTEROL/IPRATROPIUM (NEB) 3 ML AMP HHN ×2 (08:38→17:02)
[2019-04-03] MEDS: MAGNESIUM HYDROXIDE 30ML CUP PO (09:00)
[2019-04-03] MEDS: ESCITALOPRAM 10 MG TAB PO (09:26)
[2019-04-03] MEDS: POTASSIUM CHLORIDE (SR) 20 MEQ TAB PO ×2 (09:26→20:36)
[2019-04-03] MEDS: ACETAZOLAMIDE 250 MG TAB PO ×2 (09:26→20:34)
[2019-04-03] MEDS: LORATADINE 10 MG TAB PO (09:27)
[2019-04-03] MEDS: BENAZEPRIL 5 MG TAB PO (09:27)
[2019-04-03] MEDS: DOCUSATE SODIUM 100 MG CAP PO ×2 (09:27→20:34)
[2019-04-03] MEDS: SPIRONOLACTONE 50 MG TAB PO (09:28)
[2019-04-03] MEDS: ANASTROZOLE 1 MG TAB PO (09:28)
[2019-04-03] MEDS: FLUTICASONE 0.05% 16 GM NAS SPRAY NASAL ×2 (09:28→20:34)
[2019-04-03] MEDS: POLYETHYLENE GLYCOL 17 GM PACKET PO (09:29)
[2019-04-03] MEDS: BUDESONIDE (NEB) 0.5MG/2ML AMP HHN ×2 (09:30→21:03)
[2019-04-03] MEDS: oxyCODONE (CR) 20 MG TAB [oxyCONTIN] PO ×2 (09:32→20:36)
[2019-04-03] MEDS: GUAIFENESIN/CODEINE 5ML CUP PO ×2 (09:32→19:23)
[2019-04-03] MEDS ORDERED: FUROSEMIDE 40 MG INJ IV (18:00)
[2019-04-04] MEDS: PANTOPRAZOLE (EC) 40 MG TAB PO (05:57)
[2019-04-04] MEDS: FUROSEMIDE 40 MG TAB PO ×2 (06:00→18:30)
[2019-04-04] MEDS: BISACODYL 10 MG SUPP PR ×4 (06:00→22:00)
[2019-04-04] MEDS: ALBUTEROL/IPRATROPIUM (NEB) 3 ML AMP HHN ×3 (08:00→17:29)
[2019-04-04] MEDS: oxyCODONE (CR) 20 MG TAB [oxyCONTIN] PO ×2 (08:38→21:21)
[2019-04-04] MEDS: BENAZEPRIL 5 MG TAB PO (09:00)
[2019-04-04] MEDS: BUDESONIDE (NEB) 0.5MG/2ML AMP HHN ×2 (09:00→19:59)
[2019-04-04] MEDS: LIDOCAINE 1% (MPF) 5 ML VIAL (09:23)
[2019-04-04] MEDS: LORATADINE 10 MG TAB PO (10:14)
[2019-04-04] MEDS: POTASSIUM CHLORIDE (SR) 20 MEQ TAB PO ×2 (10:14→21:21)
[2019-04-04] MEDS: ESCITALOPRAM 10 MG TAB PO (10:14)
[2019-04-04] MEDS: SPIRONOLACTONE 50 MG TAB PO (10:15)
[2019-04-04] MEDS: DOCUSATE SODIUM 100 MG CAP PO ×2 (10:15→21:21)
[2019-04-04] MEDS: POLYETHYLENE GLYCOL 17 GM PACKET PO (10:16)
[2019-04-04] MEDS: ANASTROZOLE 1 MG TAB PO (10:16)
[2019-04-04] MEDS: MAGNESIUM HYDROXIDE 30ML CUP PO (10:16)
[2019-04-04] MEDS: FLUTICASONE 0.05% 16 GM NAS SPRAY NASAL ×2 (10:16→21:20)
[2019-04-04] MEDS: METOLAZONE 5 MG TAB PO (10:42)
[2019-04-04] MEDS: GUAIFENESIN/CODEINE 5ML CUP PO ×2 (10:51→18:34)
[2019-04-04] MEDS: OSELTAMIVIR 75 MG CAP PO ×2 (13:49→21:22)
[2019-04-04] MEDS: AZITHROMYCIN 500 MG in SOD CHLORIDE 0.9% 250 ML IVPB (15:29)
[2019-04-04] MEDS: CEPASTAT LOZENGE MT (18:34)
[2019-04-04] MEDS ORDERED: METOLAZONE 2.5 MG TAB PO (21:00)
[2019-04-05] MEDS: ALBUTEROL/IPRATROPIUM (NEB) 3 ML AMP HHN ×3 (00:44→16:10)
[2019-04-05 04:58] LABS: ABNORMAL IP MESSAGE 1; ADD MAN DIFF? NO; BASOPHILS % 0.9 % (0.0-2.0); EOSINOPHILS # 0.1 10^3/ul (0.0-0.5); EOSINOPHILS % 1.9 % (0.0-7.0); HEMATOCRIT 29.8 % (37.0-47.0); HEMOGLOBIN 9.6 g/dl (12.0-16.0); LYMPHOCYTES # 1.7 10^3/ul (0.8-2.9); LYMPHOCYTES % 52.8 % (15.0-51.0); MEAN CORPUSCULAR HEMOGLOBIN 32.2 pg (29.0-33.0); MEAN CORPUSCULAR HGB CONC 32.2 g/dl (32.0-37.0); MEAN PLATELET VOLUME 9.3 fl (7.4-10.4); MONOCYTE # 0.5 10^3/ul (0.3-0.9); MONOCYTES % 14.3 % (0.0-11.0); NEUTROPHILS % 30.1 % (39.0-77.0); PLATELET COUNT 155 10^3/UL (140-415); RED BLOOD COUNT 2.98 10^6/ul (4.20-5.40); RED CELL DISTRIBUTION WIDTH 16.1 % (11.5-14.5)
[2019-04-05 04:58] LABS: WHITE BLOOD COUNT 3.2 10^3/ul (4.8-10.8)
[2019-04-05 05:07] LABS: POSITIVE DIFF @See below
[2019-04-05 05:20] LABS: ANION GAP 8 (5-13); BLOOD UREA NITROGEN 32 mg/dl (7-20); CALCIUM 8.5 mg/dl (8.4-10.2); CARBON DIOXIDE 28 mmol/L (21-31); CHLORIDE 100 mmol/L (97-110); Estimated GFR 57 mL/min (>60); GLUCOSE 110 mg/dl (70-220); MAGNESIUM 2.2 mg/dl (1.7-2.5); PHOSPHORUS 5.2 mg/dl (2.5-4.9); SODIUM 136 mmol/L (135-144)
[2019-04-05 05:31] LABS: POTASSIUM 3.9 mmol/L (3.5-5.1)
[2019-04-05] MEDS: METOLAZONE 2.5 MG TAB PO ×2 (05:41→17:53)
[2019-04-05] MEDS: BISACODYL 10 MG SUPP PR ×3 (05:59→21:13)
[2019-04-05] MEDS: PANTOPRAZOLE (EC) 40 MG TAB PO (06:20)
[2019-04-05] MEDS: FUROSEMIDE 40 MG TAB PO (06:21)
[2019-04-05] MEDS: FLUTICASONE 0.05% 16 GM NAS SPRAY NASAL ×3 (09:00→21:00)
[2019-04-05] MEDS: MAGNESIUM HYDROXIDE 30ML CUP PO (09:00)
[2019-04-05] MEDS: BENAZEPRIL 5 MG TAB PO (09:00)
[2019-04-05] MEDS: SPIRONOLACTONE 50 MG TAB PO (09:00)
[2019-04-05] MEDS: POLYETHYLENE GLYCOL 17 GM PACKET PO (09:00)
[2019-04-05] MEDS: BUDESONIDE (NEB) 0.5MG/2ML AMP HHN ×2 (09:30→19:43)
[2019-04-05] MEDS: oxyCODONE (CR) 20 MG TAB [oxyCONTIN] PO ×2 (09:52→21:12)
[2019-04-05] MEDS: DOCUSATE SODIUM 100 MG CAP PO ×2 (09:53→21:11)
[2019-04-05] MEDS: LORATADINE 10 MG TAB PO (09:53)
[2019-04-05] MEDS: POTASSIUM CHLORIDE (SR) 20 MEQ TAB PO ×2 (09:53→21:11)
[2019-04-05] MEDS: ANASTROZOLE 1 MG TAB PO (09:59)
[2019-04-05] MEDS: ESCITALOPRAM 10 MG TAB PO (09:59)
[2019-04-05] MEDS: OSELTAMIVIR 75 MG CAP PO ×2 (10:00→21:11)
[2019-04-05] MEDS: GUAIFENESIN/CODEINE 5ML CUP PO (12:54)
[2019-04-05] MEDS: AZITHROMYCIN 500 MG in SOD CHLORIDE 0.9% 250 ML IVPB (12:55)
[2019-04-05] MEDS: FUROSEMIDE 40 MG INJ IV (18:30)
[2019-04-06] MEDS: ALBUTEROL/IPRATROPIUM (NEB) 3 ML AMP HHN ×3 (00:05→16:43)
[2019-04-06] MEDS: METOLAZONE 2.5 MG TAB PO ×2 (05:57→17:50)
[2019-04-06] MEDS: BISACODYL 10 MG SUPP PR ×3 (05:58→22:00)
[2019-04-06] MEDS: PANTOPRAZOLE (EC) 40 MG TAB PO (06:36)
[2019-04-06] MEDS: FUROSEMIDE 40 MG INJ IV ×2 (06:36→18:34)
[2019-04-06 07:04] LABS: ANION GAP 7 (5-13); BLOOD UREA NITROGEN 32 mg/dl (7-20); CALCIUM 8.7 mg/dl (8.4-10.2); CARBON DIOXIDE 30 mmol/L (21-31); CHLORIDE 98 mmol/L (97-110); Estimated GFR > 60 mL/min (>60); GLUCOSE 102 mg/dl (70-220); MAGNESIUM 2.1 mg/dl (1.7-2.5); PHOSPHORUS 5.1 mg/dl (2.5-4.9); POTASSIUM 3.1 mmol/L (3.5-5.1); SODIUM 135 mmol/L (135-144)
[2019-04-06] MEDS: SPIRONOLACTONE 50 MG TAB PO (08:36)
[2019-04-06] MEDS: DOCUSATE SODIUM 100 MG CAP PO ×2 (08:37→20:31)
[2019-04-06] MEDS: OSELTAMIVIR 75 MG CAP PO ×2 (08:37→20:31)
[2019-04-06] MEDS: POTASSIUM CHLORIDE (SR) 20 MEQ TAB PO ×3 (08:38→20:31)
[2019-04-06] MEDS: ESCITALOPRAM 10 MG TAB PO (08:39)
[2019-04-06] MEDS: LORATADINE 10 MG TAB PO (08:39)
[2019-04-06] MEDS: oxyCODONE (CR) 20 MG TAB [oxyCONTIN] PO ×2 (08:42→20:32)
[2019-04-06] MEDS: ANASTROZOLE 1 MG TAB PO (08:42)
[2019-04-06] MEDS: GUAIFENESIN/CODEINE 5ML CUP PO ×5 (08:47→20:34)
[2019-04-06] MEDS: BUDESONIDE (NEB) 0.5MG/2ML AMP HHN ×2 (08:51→20:20)
[2019-04-06] MEDS: FLUTICASONE 0.05% 16 GM NAS SPRAY NASAL ×2 (09:00→20:30)
[2019-04-06] MEDS: POLYETHYLENE GLYCOL 17 GM PACKET PO (09:00)
[2019-04-06] MEDS: MAGNESIUM HYDROXIDE 30ML CUP PO (09:00)
[2019-04-06] MEDS: ENOXAPARIN 40 MG/0.4 ML SYG SC (10:46)
[2019-04-07] MEDS: ZOLPIDEM 5 MG TAB PO (00:13)
[2019-04-07] MEDS: GUAIFENESIN/CODEINE 5ML CUP PO ×6 (00:13→20:35)
[2019-04-07] MEDS: ALBUTEROL/IPRATROPIUM (NEB) 3 ML AMP HHN ×3 (00:52→16:36)
[2019-04-07] MEDS: METOLAZONE 2.5 MG TAB PO ×2 (05:34→17:39)
[2019-04-07] MEDS: BISACODYL 10 MG SUPP PR ×3 (06:00→21:49)
[2019-04-07] MEDS: PANTOPRAZOLE (EC) 40 MG TAB PO (06:31)
[2019-04-07 06:32] LABS: ALANINE AMINOTRANSFERASE 24 IU/L (13-69); ALBUMIN 3.4 g/dl (3.3-4.9); ALBUMIN/GLOBULIN RATIO 1.17; ALKALINE PHOSPHATASE 69 IU/L (42-121); ANION GAP 10 (5-13); ASPARTATE AMINO TRANSFERASE 27 IU/L (15-46); BILIRUBIN,INDIRECT 0.5 mg/dl (0-1.1); BILIRUBIN,TOTAL 0.5 mg/dl (0.2-1.3); BLOOD UREA NITROGEN 27 mg/dl (7-20); CALCIUM 8.5 mg/dl (8.4-10.2); CARBON DIOXIDE 32 mmol/L (21-31); CHLORIDE 96 mmol/L (97-110); CREATININE 0.86 mg/dl (0.44-1.00); Estimated GFR > 60 mL/min (>60); GLUCOSE 107 mg/dl (70-220); POTASSIUM 3.3 mmol/L (3.5-5.1); SODIUM 138 mmol/L (135-144); TOTAL PROTEIN 6.3 g/dl (6.1-8.1)
[2019-04-07] MEDS: FUROSEMIDE 40 MG INJ IV ×2 (06:32→17:40)
[2019-04-07 06:38] LABS: PHOSPHORUS 4.7 mg/dl (2.5-4.9)
[2019-04-07] MEDS: BUDESONIDE (NEB) 0.5MG/2ML AMP HHN ×2 (08:51→21:04)
[2019-04-07] MEDS: MAGNESIUM HYDROXIDE 30ML CUP PO (09:12)
[2019-04-07] MEDS: DOCUSATE SODIUM 100 MG CAP PO ×2 (09:13→20:33)
[2019-04-07] MEDS: OSELTAMIVIR 75 MG CAP PO ×2 (09:13→20:33)
[2019-04-07] MEDS: POLYETHYLENE GLYCOL 17 GM PACKET PO (09:13)
[2019-04-07] MEDS: POTASSIUM CHLORIDE (SR) 20 MEQ TAB PO (09:13)
[2019-04-07] MEDS: oxyCODONE (CR) 20 MG TAB [oxyCONTIN] PO ×2 (09:13→20:35)
[2019-04-07] MEDS: ESCITALOPRAM 10 MG TAB PO (09:13)
[2019-04-07] MEDS: POTASSIUM CHLORIDE (SR) 10 MEQ TAB PO ×2 (09:13→20:33)
[2019-04-07] MEDS: SPIRONOLACTONE 50 MG TAB PO (09:14)
[2019-04-07] MEDS: ANASTROZOLE 1 MG TAB PO (09:15)
[2019-04-07] MEDS: ENOXAPARIN 40 MG/0.4 ML SYG SC (09:16)
[2019-04-07] MEDS: LORATADINE 10 MG TAB PO (09:16)
[2019-04-07] MEDS: FLUTICASONE 0.05% 16 GM NAS SPRAY NASAL ×2 (09:17→20:35)
[2019-04-08] MEDS: GUAIFENESIN/CODEINE 5ML CUP PO ×6 (00:09→21:57)
[2019-04-08] MEDS: ZOLPIDEM 5 MG TAB PO ×2 (00:12→23:51)
[2019-04-08] MEDS: ALBUTEROL/IPRATROPIUM (NEB) 3 ML AMP HHN ×4 (00:14→22:10)
[2019-04-08] MEDS: METOLAZONE 2.5 MG TAB PO ×3 (05:35→17:19)
[2019-04-08] MEDS: BISACODYL 10 MG SUPP PR ×3 (06:00→22:00)
[2019-04-08] MEDS: PANTOPRAZOLE (EC) 40 MG TAB PO (06:18)
[2019-04-08] MEDS: FUROSEMIDE 40 MG INJ IV (06:18)
[2019-04-08 06:28] LABS: ANION GAP 6 (5-13); BLOOD UREA NITROGEN 26 mg/dl (7-20); CALCIUM 8.7 mg/dl (8.4-10.2); CARBON DIOXIDE 37 mmol/L (21-31); CHLORIDE 93 mmol/L (97-110); CREATININE 0.83 mg/dl (0.44-1.00); Estimated GFR > 60 mL/min (>60); GLUCOSE 101 mg/dl (70-220); MAGNESIUM 2.2 mg/dl (1.7-2.5); PHOSPHORUS 4.5 mg/dl (2.5-4.9); POTASSIUM 3.3 mmol/L (3.5-5.1); SODIUM 136 mmol/L (135-144)
[2019-04-08] MEDS: BUDESONIDE (NEB) 0.5MG/2ML AMP HHN ×2 (08:09→21:50)
[2019-04-08] MEDS: POTASSIUM CHLORIDE (SR) 10 MEQ TAB PO ×2 (08:57→21:56)
[2019-04-08] MEDS: oxyCODONE (CR) 20 MG TAB [oxyCONTIN] PO ×2 (08:57→21:57)
[2019-04-08] MEDS: POTASSIUM CHLORIDE (SR) 20 MEQ TAB PO (08:57)
[2019-04-08] MEDS: ESCITALOPRAM 10 MG TAB PO (08:57)
[2019-04-08] MEDS: DOCUSATE SODIUM 100 MG CAP PO ×2 (08:57→21:56)
[2019-04-08] MEDS: SPIRONOLACTONE 50 MG TAB PO (08:58)
[2019-04-08] MEDS: OSELTAMIVIR 75 MG CAP PO (08:58)
[2019-04-08] MEDS: MAGNESIUM HYDROXIDE 30ML CUP PO (08:58)
[2019-04-08] MEDS: POLYETHYLENE GLYCOL 17 GM PACKET PO (08:58)
[2019-04-08] MEDS: LORATADINE 10 MG TAB PO (08:58)
[2019-04-08] MEDS: FLUTICASONE 0.05% 16 GM NAS SPRAY NASAL ×2 (08:59→21:00)
[2019-04-08] MEDS: ANASTROZOLE 1 MG TAB PO (09:00)
[2019-04-08] MEDS: ENOXAPARIN 40 MG/0.4 ML SYG SC (09:01)
[2019-04-08] MEDS: ACETAZOLAMIDE 500 MG INJ IV (09:27)
[2019-04-09] MEDS: GUAIFENESIN/CODEINE 5ML CUP PO ×6 (01:44→20:58)
[2019-04-09 05:46] LABS: ANION GAP 9 (5-13); BLOOD UREA NITROGEN 27 mg/dl (7-20); CALCIUM 8.9 mg/dl (8.4-10.2); CARBON DIOXIDE 34 mmol/L (21-31); CHLORIDE 93 mmol/L (97-110); CREATININE 0.91 mg/dl (0.44-1.00); Estimated GFR > 60 mL/min (>60); GLUCOSE 114 mg/dl (70-220); MAGNESIUM 2.3 mg/dl (1.7-2.5); PHOSPHORUS 5.1 mg/dl (2.5-4.9); POTASSIUM 3.3 mmol/L (3.5-5.1); SODIUM 136 mmol/L (135-144)
[2019-04-09] MEDS: METOLAZONE 2.5 MG TAB PO ×2 (05:48→18:12)
[2019-04-09] MEDS: BISACODYL 10 MG SUPP PR ×3 (06:00→21:00)
[2019-04-09] MEDS: ALBUTEROL/IPRATROPIUM (NEB) 3 ML AMP HHN ×3 (08:07→21:13)
[2019-04-09] MEDS: BUDESONIDE (NEB) 0.5MG/2ML AMP HHN ×2 (08:07→21:13)
[2019-04-09] MEDS: POTASSIUM CHLORIDE (SR) 20 MEQ TAB PO (08:23)
[2019-04-09] MEDS: PANTOPRAZOLE (EC) 40 MG TAB PO (08:23)
[2019-04-09] MEDS: POTASSIUM CHLORIDE (SR) 10 MEQ TAB PO ×2 (08:24→20:59)
[2019-04-09] MEDS: FLUTICASONE 0.05% 16 GM NAS SPRAY NASAL ×2 (09:00→21:00)
[2019-04-09] MEDS: SPIRONOLACTONE 50 MG TAB PO (09:18)
[2019-04-09] MEDS: LORATADINE 10 MG TAB PO (09:19)
[2019-04-09] MEDS: ESCITALOPRAM 10 MG TAB PO (09:19)
[2019-04-09] MEDS: oxyCODONE (CR) 20 MG TAB [oxyCONTIN] PO ×2 (09:19→20:59)
[2019-04-09] MEDS: MAGNESIUM HYDROXIDE 30ML CUP PO (09:20)
[2019-04-09] MEDS: ACETAZOLAMIDE 500 MG INJ IV (09:20)
[2019-04-09] MEDS: ANASTROZOLE 1 MG TAB PO (09:21)
[2019-04-09] MEDS: ENOXAPARIN 40 MG/0.4 ML SYG SC (09:22)
[2019-04-09] MEDS: DOCUSATE SODIUM 100 MG CAP PO ×2 (09:22→20:58)
[2019-04-09] MEDS: POLYETHYLENE GLYCOL 17 GM PACKET PO (13:10)
[2019-04-10] MEDS: GUAIFENESIN/CODEINE 5ML CUP PO ×6 (01:09→21:57)
[2019-04-10] MEDS: METOLAZONE 2.5 MG TAB PO ×2 (05:10→18:28)
[2019-04-10 05:50] LABS: ANION GAP 8 (5-13); BLOOD UREA NITROGEN 26 mg/dl (7-20); CALCIUM 8.9 mg/dl (8.4-10.2); CARBON DIOXIDE 31 mmol/L (21-31); CHLORIDE 95 mmol/L (97-110); CREATININE 0.82 mg/dl (0.44-1.00); Estimated GFR > 60 mL/min (>60); GLUCOSE 126 mg/dl (70-220); MAGNESIUM 2.3 mg/dl (1.7-2.5); POTASSIUM 3.5 mmol/L (3.5-5.1); SODIUM 134 mmol/L (135-144)
[2019-04-10] MEDS: BISACODYL 10 MG SUPP PR ×3 (06:00→21:43)
[2019-04-10 06:35] LABS: CARCINOEMBRYONIC ANTIGEN 3.1 ng/ml (0.0-5.0)
[2019-04-10] MEDS: ALBUTEROL/IPRATROPIUM (NEB) 3 ML AMP HHN ×3 (08:35→20:38)
[2019-04-10] MEDS: BUDESONIDE (NEB) 0.5MG/2ML AMP HHN ×2 (08:36→20:38)
[2019-04-10] MEDS: SPIRONOLACTONE 50 MG TAB PO (09:13)
[2019-04-10] MEDS: ESCITALOPRAM 10 MG TAB PO (09:13)
[2019-04-10] MEDS: PANTOPRAZOLE (EC) 40 MG TAB PO (09:13)
[2019-04-10] MEDS: POTASSIUM CHLORIDE (SR) 10 MEQ TAB PO ×2 (09:13→21:57)
[2019-04-10] MEDS: DOCUSATE SODIUM 100 MG CAP PO ×2 (09:13→21:57)
[2019-04-10] MEDS: ANASTROZOLE 1 MG TAB PO (09:14)
[2019-04-10] MEDS: LORATADINE 10 MG TAB PO (09:14)
[2019-04-10] MEDS: ACETAZOLAMIDE 500 MG INJ IV ×2 (09:15→21:57)
[2019-04-10] MEDS: oxyCODONE (CR) 20 MG TAB [oxyCONTIN] PO ×2 (09:18→21:57)
[2019-04-10] MEDS: POLYETHYLENE GLYCOL 17 GM PACKET PO (09:19)
[2019-04-10] MEDS: MAGNESIUM HYDROXIDE 30ML CUP PO (09:19)
[2019-04-10] MEDS: ENOXAPARIN 40 MG/0.4 ML SYG SC (09:21)
[2019-04-10] MEDS: FLUTICASONE 0.05% 16 GM NAS SPRAY NASAL ×2 (09:24→21:58)
[2019-04-11] MEDS: GUAIFENESIN/CODEINE 5ML CUP PO ×7 (00:07→20:30)
[2019-04-11] MEDS: METOLAZONE 2.5 MG TAB PO ×2 (04:49→18:10)
[2019-04-11] MEDS: BISACODYL 10 MG SUPP PR ×3 (05:18→21:33)
[2019-04-11 05:46] LABS: ANION GAP 6 (5-13); BLOOD UREA NITROGEN 26 mg/dl (7-20); CARBON DIOXIDE 31 mmol/L (21-31); CHLORIDE 99 mmol/L (97-110); CREATININE 0.87 mg/dl (0.44-1.00); Estimated GFR > 60 mL/min (>60); GLUCOSE 114 mg/dl (70-220); MAGNESIUM 2.4 mg/dl (1.7-2.5); PHOSPHORUS 5.2 mg/dl (2.5-4.9); POTASSIUM 3.4 mmol/L (3.5-5.1); SODIUM 136 mmol/L (135-144)
[2019-04-11] MEDS: ALBUTEROL/IPRATROPIUM (NEB) 3 ML AMP HHN ×2 (08:11→16:48)
[2019-04-11] MEDS: BUDESONIDE (NEB) 0.5MG/2ML AMP HHN ×2 (08:13→20:09)
[2019-04-11] MEDS: SPIRONOLACTONE 50 MG TAB PO (08:16)
[2019-04-11] MEDS: DOCUSATE SODIUM 100 MG CAP PO ×2 (08:16→20:30)
[2019-04-11] MEDS: ESCITALOPRAM 10 MG TAB PO (08:16)
[2019-04-11] MEDS: oxyCODONE (CR) 20 MG TAB [oxyCONTIN] PO ×2 (08:16→20:31)
[2019-04-11] MEDS: PANTOPRAZOLE (EC) 40 MG TAB PO (08:16)
[2019-04-11] MEDS: LORATADINE 10 MG TAB PO (08:16)
[2019-04-11] MEDS: POTASSIUM CHLORIDE (SR) 10 MEQ TAB PO ×2 (08:17→20:34)
[2019-04-11] MEDS: POLYETHYLENE GLYCOL 17 GM PACKET PO (08:17)
[2019-04-11] MEDS: ANASTROZOLE 1 MG TAB PO (08:18)
[2019-04-11] MEDS: FLUTICASONE 0.05% 16 GM NAS SPRAY NASAL ×2 (08:22→20:35)
[2019-04-11] MEDS: POTASSIUM CHLORIDE (SR) 20 MEQ TAB PO (08:25)
[2019-04-11] MEDS: MAGNESIUM HYDROXIDE 30ML CUP PO (08:25)
[2019-04-11] MEDS: ENOXAPARIN 40 MG/0.4 ML SYG SC ×2 (09:00→13:26)
[2019-04-11] MEDS: ACETAZOLAMIDE 500 MG INJ IV ×4 (09:00→20:37)
[2019-04-11] MEDS: LIDOCAINE 1% (MPF) 5 ML VIAL (10:53)
[2019-04-11] MEDS ORDERED: POTASSIUM CHLORIDE (SR) 20 MEQ TAB PO (11:46)
[2019-04-11 12:11] LABS: CA27.29 32 U/mL (<38)
[2019-04-11 12:50] LABS: FLD MN% 92.9 %; FLD PMN% 7.1 %; FLD RBC 3000 /uL; FLD WBC 685 /cmm
[2019-04-11 12:54] LABS: FLUID AMYLASE < 30 U/L; FLUID TYPE PLEURAL FLUID
[2019-04-11 12:55] LABS: FLUID LD 302 U/L; FLUID TYPE PLEURAL FLUID
[2019-04-11 13:18] LABS: FLD TYPE PLEURAL
[2019-04-11 13:18] LABS: FLD CLARITY HAZY
[2019-04-11 13:19] LABS: FLD COLOR YELLOW; PATH REVIEW? YES
[2019-04-11] MEDS: morphine 2 MG INJ IV (13:24)
[2019-04-11 23:17] LABS: CANCER ANTIGEN 15-3 17 U/mL (<32)
[2019-04-12] MEDS: GUAIFENESIN/CODEINE 5ML CUP PO ×6 (01:00→20:23)
[2019-04-12] MEDS: ALBUTEROL/IPRATROPIUM (NEB) 3 ML AMP HHN ×4 (01:26→23:42)
[2019-04-12] MEDS: METOLAZONE 2.5 MG TAB PO ×2 (05:02→17:50)
[2019-04-12 05:37] LABS: ADD MAN DIFF? NO
[2019-04-12 05:46] LABS: WHITE BLOOD COUNT 4.6 10^3/ul (4.8-10.8)
[2019-04-12 05:46] LABS: BASOPHILS % 0.9 % (0.0-2.0); EOSINOPHILS # 0.1 10^3/ul (0.0-0.5); EOSINOPHILS % 2.4 % (0.0-7.0); HEMATOCRIT 31.4 % (37.0-47.0); HEMOGLOBIN 10.2 g/dl (12.0-16.0); LYMPHOCYTES # 1.6 10^3/ul (0.8-2.9); LYMPHOCYTES % 35.2 % (15.0-51.0); MEAN CORPUSCULAR HEMOGLOBIN 32.7 pg (29.0-33.0); MEAN CORPUSCULAR HGB CONC 32.5 g/dl (32.0-37.0); MEAN CORPUSCULAR VOLUME 100.6 fl (82.0-101.0); MEAN PLATELET VOLUME 9.5 fl (7.4-10.4); MONOCYTE # 0.6 10^3/ul (0.3-0.9); MONOCYTES % 13.8 % (0.0-11.0); NEUTROPHIL # 2.2 10^3/ul (1.6-7.5); NEUTROPHILS % 47.5 % (39.0-77.0); PLATELET COUNT 218 10^3/UL (140-415); RED BLOOD COUNT 3.12 10^6/ul (4.20-5.40); RED CELL DISTRIBUTION WIDTH 15.6 % (11.5-14.5)
[2019-04-12 05:54] LABS: ALANINE AMINOTRANSFERASE 31 IU/L (13-69); ALBUMIN 3.6 g/dl (3.3-4.9); ALBUMIN/GLOBULIN RATIO 1.12; ALKALINE PHOSPHATASE 100 IU/L (42-121); ANION GAP 8 (5-13); ASPARTATE AMINO TRANSFERASE 27 IU/L (15-46); BILIRUBIN,INDIRECT 0.4 mg/dl (0-1.1); BILIRUBIN,TOTAL 0.4 mg/dl (0.2-1.3); BLOOD UREA NITROGEN 26 mg/dl (7-20); CALCIUM 8.8 mg/dl (8.4-10.2); CARBON DIOXIDE 28 mmol/L (21-31); CHLORIDE 100 mmol/L (97-110); CREATININE 0.89 mg/dl (0.44-1.00); Estimated GFR > 60 mL/min (>60); GLUCOSE 106 mg/dl (70-220); POTASSIUM 3.3 mmol/L (3.5-5.1); SODIUM 136 mmol/L (135-144); TOTAL PROTEIN 6.8 g/dl (6.1-8.1)
[2019-04-12] MEDS: PANTOPRAZOLE (EC) 40 MG TAB PO (06:00)
[2019-04-12] MEDS: BISACODYL 10 MG SUPP PR ×3 (06:00→22:00)
[2019-04-12 06:05] LABS: IRON 57 ug/dl (35-150)
[2019-04-12 06:15] LABS: % IRON SATURATION 25 % SAT (22-52); TOTAL IRON BINDING CAPACITY 232 ug/dl (241-421)
[2019-04-12 06:18] LABS: MAGNESIUM 2.4 mg/dl (1.7-2.5)
[2019-04-12 06:18] LABS: PHOSPHORUS 5.5 mg/dl (2.5-4.9)
[2019-04-12] MEDS ORDERED: POTASSIUM CHLORIDE (SR) 20 MEQ TAB PO (07:44)
[2019-04-12] MEDS: BUDESONIDE (NEB) 0.5MG/2ML AMP HHN ×2 (07:50→20:01)
[2019-04-12] MEDS: POLYETHYLENE GLYCOL 17 GM PACKET PO (09:00)
[2019-04-12] MEDS: MAGNESIUM HYDROXIDE 30ML CUP PO (09:00)
[2019-04-12] MEDS: POTASSIUM CHLORIDE (SR) 10 MEQ TAB PO ×2 (09:35→20:25)
[2019-04-12] MEDS: oxyCODONE (CR) 20 MG TAB [oxyCONTIN] PO ×2 (09:36→20:25)
[2019-04-12] MEDS: POTASSIUM CHLORIDE (SR) 20 MEQ TAB PO ×2 (09:36→18:54)
[2019-04-12] MEDS: DOCUSATE SODIUM 100 MG CAP PO ×2 (09:36→20:24)
[2019-04-12] MEDS: SPIRONOLACTONE 50 MG TAB PO (09:37)
[2019-04-12] MEDS: LORATADINE 10 MG TAB PO (09:38)
[2019-04-12] MEDS: ESCITALOPRAM 10 MG TAB PO (09:38)
[2019-04-12] MEDS: ANASTROZOLE 1 MG TAB PO (09:41)
[2019-04-12] MEDS: ENOXAPARIN 40 MG/0.4 ML SYG SC (09:47)
[2019-04-12] MEDS: FLUTICASONE 0.05% 16 GM NAS SPRAY NASAL ×2 (09:49→20:24)
[2019-04-12] MEDS: FUROSEMIDE 40 MG INJ IV (18:54)
[2019-04-13] MEDS: GUAIFENESIN/CODEINE 5ML CUP PO ×6 (00:38→20:42)
[2019-04-13] MEDS: METOLAZONE 2.5 MG TAB PO ×2 (05:19→17:43)
[2019-04-13] MEDS: PANTOPRAZOLE (EC) 40 MG TAB PO (05:19)
[2019-04-13] MEDS: FUROSEMIDE 40 MG INJ IV ×2 (05:57→18:45)
[2019-04-13] MEDS: BISACODYL 10 MG SUPP PR ×3 (06:00→21:41)
[2019-04-13] MEDS: FLUTICASONE 0.05% 16 GM NAS SPRAY NASAL ×2 (09:00→20:42)
[2019-04-13] MEDS: POLYETHYLENE GLYCOL 17 GM PACKET PO (09:00)
[2019-04-13] MEDS: MAGNESIUM HYDROXIDE 30ML CUP PO (09:00)
[2019-04-13] MEDS: BUDESONIDE (NEB) 0.5MG/2ML AMP HHN ×2 (09:00→21:20)
[2019-04-13] MEDS: SPIRONOLACTONE 50 MG TAB PO (10:15)
[2019-04-13] MEDS: LORATADINE 10 MG TAB PO (10:16)
[2019-04-13] MEDS: ESCITALOPRAM 10 MG TAB PO (10:16)
[2019-04-13] MEDS: DOCUSATE SODIUM 100 MG CAP PO ×2 (10:16→20:42)
[2019-04-13] MEDS: POTASSIUM CHLORIDE (SR) 10 MEQ TAB PO ×2 (10:16→20:42)
[2019-04-13] MEDS: oxyCODONE (CR) 20 MG TAB [oxyCONTIN] PO ×2 (10:17→20:42)
[2019-04-13] MEDS: ANASTROZOLE 1 MG TAB PO (10:18)
[2019-04-13] MEDS: ENOXAPARIN 40 MG/0.4 ML SYG SC (10:18)
[2019-04-13] MEDS: ALBUTEROL/IPRATROPIUM (NEB) 3 ML AMP HHN ×2 (16:15→23:57)
[2019-04-14] MEDS: GUAIFENESIN/CODEINE 5ML CUP PO ×7 (00:21→20:36)
[2019-04-14 05:21] LABS: ADD MAN DIFF? NO
[2019-04-14] MEDS: PANTOPRAZOLE (EC) 40 MG TAB PO (05:24)
[2019-04-14] MEDS: FUROSEMIDE 40 MG INJ IV ×2 (05:24→18:08)
[2019-04-14] MEDS: METOLAZONE 2.5 MG TAB PO ×2 (05:24→18:08)
[2019-04-14] MEDS: BISACODYL 10 MG SUPP PR ×3 (05:25→20:33)
[2019-04-14 05:41] LABS: WHITE BLOOD COUNT 4.9 10^3/ul (4.8-10.8)
[2019-04-14 05:42] LABS: BASOPHILS % 0.8 % (0.0-2.0); EOSINOPHILS # 0.1 10^3/ul (0.0-0.5); EOSINOPHILS % 1.6 % (0.0-7.0); HEMATOCRIT 30.6 % (37.0-47.0); LYMPHOCYTES # 1.8 10^3/ul (0.8-2.9); LYMPHOCYTES % 36.1 % (15.0-51.0); MEAN CORPUSCULAR HEMOGLOBIN 32.1 pg (29.0-33.0); MEAN CORPUSCULAR HGB CONC 32.7 g/dl (32.0-37.0); MEAN CORPUSCULAR VOLUME 98.1 fl (82.0-101.0); MEAN PLATELET VOLUME 9.4 fl (7.4-10.4); MONOCYTE # 0.7 10^3/ul (0.3-0.9); MONOCYTES % 14.5 % (0.0-11.0); NEUTROPHIL # 2.3 10^3/ul (1.6-7.5); PLATELET COUNT 221 10^3/UL (140-415); RED BLOOD COUNT 3.12 10^6/ul (4.20-5.40); RED CELL DISTRIBUTION WIDTH 15.5 % (11.5-14.5)
[2019-04-14 08:03] LABS: ANION GAP 9 (5-13); BLOOD UREA NITROGEN 31 mg/dl (7-20); CALCIUM 8.7 mg/dl (8.4-10.2); CARBON DIOXIDE 31 mmol/L (21-31); CHLORIDE 95 mmol/L (97-110); Estimated GFR > 60 mL/min (>60); GLUCOSE 102 mg/dl (70-220); PHOSPHORUS 5.3 mg/dl (2.5-4.9); SODIUM 135 mmol/L (135-144)
[2019-04-14 08:04] LABS: POTASSIUM 2.9 mmol/L (3.5-5.1)
[2019-04-14] MEDS: BUDESONIDE (NEB) 0.5MG/2ML AMP HHN ×2 (09:05→20:00)
[2019-04-14] MEDS: ALBUTEROL/IPRATROPIUM (NEB) 3 ML AMP HHN ×2 (09:05→16:34)
[2019-04-14] MEDS: LORATADINE 10 MG TAB PO (09:21)
[2019-04-14] MEDS: ESCITALOPRAM 10 MG TAB PO (09:21)
[2019-04-14] MEDS: DOCUSATE SODIUM 100 MG CAP PO ×2 (09:21→20:22)
[2019-04-14] MEDS: oxyCODONE (CR) 20 MG TAB [oxyCONTIN] PO ×2 (09:22→20:32)
[2019-04-14] MEDS: SPIRONOLACTONE 50 MG TAB PO (09:22)
[2019-04-14] MEDS: POTASSIUM CHLORIDE (SR) 10 MEQ TAB PO ×3 (09:22→20:22)
[2019-04-14] MEDS: MAGNESIUM HYDROXIDE 30ML CUP PO (09:22)
[2019-04-14] MEDS: POLYETHYLENE GLYCOL 17 GM PACKET PO (09:22)
[2019-04-14] MEDS: ANASTROZOLE 1 MG TAB PO (09:23)
[2019-04-14] MEDS: ENOXAPARIN 40 MG/0.4 ML SYG SC (09:24)
[2019-04-14] MEDS: FLUTICASONE 0.05% 16 GM NAS SPRAY NASAL ×2 (09:25→20:23)
[2019-04-15] MEDS: BISACODYL 10 MG SUPP PR ×3 (06:00→22:00)
[2019-04-15] MEDS: PANTOPRAZOLE (EC) 40 MG TAB PO (06:25)
[2019-04-15] MEDS: GUAIFENESIN/CODEINE 5ML CUP PO ×5 (06:25→21:02)
[2019-04-15] MEDS: METOLAZONE 2.5 MG TAB PO ×2 (06:29→17:52)
[2019-04-15 06:57] LABS: ANION GAP 8 (5-13); BLOOD UREA NITROGEN 29 mg/dl (7-20); CALCIUM 8.8 mg/dl (8.4-10.2); CARBON DIOXIDE 33 mmol/L (21-31); CHLORIDE 96 mmol/L (97-110); CREATININE 0.94 mg/dl (0.44-1.00); Estimated GFR > 60 mL/min (>60); GLUCOSE 123 mg/dl (70-220); PHOSPHORUS 5.3 mg/dl (2.5-4.9); POTASSIUM 3.2 mmol/L (3.5-5.1); SODIUM 137 mmol/L (135-144)
[2019-04-15] MEDS: FUROSEMIDE 40 MG INJ IV ×2 (06:59→17:52)
[2019-04-15] MEDS: BUDESONIDE (NEB) 0.5MG/2ML AMP HHN ×2 (07:33→20:16)
[2019-04-15] MEDS: DOCUSATE SODIUM 100 MG CAP PO ×2 (08:53→21:04)
[2019-04-15] MEDS: MAGNESIUM HYDROXIDE 30ML CUP PO (08:53)
[2019-04-15] MEDS: ESCITALOPRAM 10 MG TAB PO (08:53)
[2019-04-15] MEDS: POTASSIUM CHLORIDE (SR) 20 MEQ TAB PO ×3 (08:53→21:03)
[2019-04-15] MEDS: LORATADINE 10 MG TAB PO (08:53)
[2019-04-15] MEDS: POLYETHYLENE GLYCOL 17 GM PACKET PO (08:53)
[2019-04-15] MEDS: SPIRONOLACTONE 50 MG TAB PO (08:53)
[2019-04-15] MEDS: ANASTROZOLE 1 MG TAB PO (08:55)
[2019-04-15] MEDS: ENOXAPARIN 40 MG/0.4 ML SYG SC (08:55)
[2019-04-15] MEDS: FLUTICASONE 0.05% 16 GM NAS SPRAY NASAL ×2 (08:58→21:00)
[2019-04-15] MEDS: oxyCODONE (CR) 20 MG TAB [oxyCONTIN] PO ×2 (08:58→21:04)
[2019-04-15] MEDS ORDERED: POTASSIUM CHLORIDE (SR) 20 MEQ TAB PO (21:00)
[2019-04-15] MEDS: ZOLPIDEM 5 MG TAB PO (23:03)
[2019-04-16] MEDS: GUAIFENESIN/CODEINE 5ML CUP PO ×6 (01:15→21:07)
[2019-04-16] MEDS: morphine 2 MG INJ IV (01:15)
[2019-04-16] MEDS: METOLAZONE 2.5 MG TAB PO ×2 (04:43→18:31)
[2019-04-16 05:39] LABS: ANION GAP 8 (5-13); BLOOD UREA NITROGEN 34 mg/dl (7-20); CALCIUM 9.2 mg/dl (8.4-10.2); CARBON DIOXIDE 36 mmol/L (21-31); CHLORIDE 94 mmol/L (97-110); Estimated GFR 57 mL/min (>60); GLUCOSE 122 mg/dl (70-220); MAGNESIUM 2.1 mg/dl (1.7-2.5); PHOSPHORUS 5.5 mg/dl (2.5-4.9); POTASSIUM 3.4 mmol/L (3.5-5.1); SODIUM 138 mmol/L (135-144)
[2019-04-16] MEDS: BISACODYL 10 MG SUPP PR ×3 (06:00→22:00)
[2019-04-16] MEDS: FUROSEMIDE 40 MG INJ IV (06:04)
[2019-04-16] MEDS: PANTOPRAZOLE (EC) 40 MG TAB PO (06:04)
[2019-04-16] MEDS: FLUTICASONE 0.05% 16 GM NAS SPRAY NASAL ×2 (09:00→21:00)
[2019-04-16] MEDS: POLYETHYLENE GLYCOL 17 GM PACKET PO (09:00)
[2019-04-16] MEDS: MAGNESIUM HYDROXIDE 30ML CUP PO (09:00)
[2019-04-16] MEDS: BUDESONIDE (NEB) 0.5MG/2ML AMP HHN ×2 (09:08→21:54)
[2019-04-16] MEDS: ESCITALOPRAM 10 MG TAB PO (09:21)
[2019-04-16] MEDS: LORATADINE 10 MG TAB PO (09:21)
[2019-04-16] MEDS: oxyCODONE (CR) 20 MG TAB [oxyCONTIN] PO ×2 (09:21→21:08)
[2019-04-16] MEDS: DOCUSATE SODIUM 100 MG CAP PO ×2 (09:21→21:07)
[2019-04-16] MEDS: SPIRONOLACTONE 50 MG TAB PO (09:22)
[2019-04-16] MEDS: ANASTROZOLE 1 MG TAB PO (09:24)
[2019-04-16] MEDS: ENOXAPARIN 40 MG/0.4 ML SYG SC (09:24)
[2019-04-16] MEDS: POTASSIUM CHLORIDE (SR) 20 MEQ TAB PO ×3 (09:29→21:07)
[2019-04-16] MEDS: ACETAZOLAMIDE 500 MG INJ IV (09:31)
[2019-04-17] MEDS: GUAIFENESIN/CODEINE 5ML CUP PO ×6 (00:26→21:29)
[2019-04-17] MEDS: METOLAZONE 2.5 MG TAB PO ×2 (05:47→17:55)
[2019-04-17] MEDS: PANTOPRAZOLE (EC) 40 MG TAB PO (05:47)
[2019-04-17] MEDS: BISACODYL 10 MG SUPP PR ×3 (05:49→22:00)
[2019-04-17 06:23] LABS: ANION GAP 9 (5-13); BLOOD UREA NITROGEN 33 mg/dl (7-20); CALCIUM 8.5 mg/dl (8.4-10.2); CARBON DIOXIDE 32 mmol/L (21-31); CHLORIDE 96 mmol/L (97-110); CREATININE 1.03 mg/dl (0.44-1.00); Estimated GFR 55 mL/min (>60); GLUCOSE 109 mg/dl (70-220); MAGNESIUM 1.9 mg/dl (1.7-2.5); PHOSPHORUS 5.5 mg/dl (2.5-4.9); POTASSIUM 3.2 mmol/L (3.5-5.1); SODIUM 137 mmol/L (135-144)
[2019-04-17] MEDS: BUDESONIDE (NEB) 0.5MG/2ML AMP HHN ×2 (08:35→21:08)
[2019-04-17] MEDS: DOCUSATE SODIUM 100 MG CAP PO ×2 (08:56→21:26)
[2019-04-17] MEDS: ESCITALOPRAM 10 MG TAB PO (08:57)
[2019-04-17] MEDS: SPIRONOLACTONE 50 MG TAB PO (08:57)
[2019-04-17] MEDS: LORATADINE 10 MG TAB PO (08:57)
[2019-04-17] MEDS: POTASSIUM CHLORIDE (SR) 20 MEQ TAB PO ×3 (08:57→21:26)
[2019-04-17] MEDS: ACETAZOLAMIDE 500 MG INJ IV (08:59)
[2019-04-17] MEDS: POLYETHYLENE GLYCOL 17 GM PACKET PO (08:59)
[2019-04-17] MEDS: MAGNESIUM HYDROXIDE 30ML CUP PO (08:59)
[2019-04-17] MEDS: oxyCODONE (CR) 20 MG TAB [oxyCONTIN] PO ×2 (08:59→21:25)
[2019-04-17] MEDS: FLUTICASONE 0.05% 16 GM NAS SPRAY NASAL ×2 (09:00→21:27)
[2019-04-17] MEDS: ANASTROZOLE 1 MG TAB PO (09:01)
[2019-04-17] MEDS: ENOXAPARIN 40 MG/0.4 ML SYG SC (09:01)
[2019-04-18] MEDS: GUAIFENESIN/CODEINE 5ML CUP PO ×6 (01:00→21:18)
[2019-04-18] MEDS: PANTOPRAZOLE (EC) 40 MG TAB PO (04:30)
[2019-04-18] MEDS: METOLAZONE 2.5 MG TAB PO ×2 (04:30→17:48)
[2019-04-18 05:49] LABS: ANION GAP 8 (5-13); BLOOD UREA NITROGEN 37 mg/dl (7-20); CALCIUM 8.8 mg/dl (8.4-10.2); CARBON DIOXIDE 30 mmol/L (21-31); CHLORIDE 97 mmol/L (97-110); CREATININE 1.04 mg/dl (0.44-1.00); Estimated GFR 54 mL/min (>60); GLUCOSE 106 mg/dl (70-220); MAGNESIUM 2.1 mg/dl (1.7-2.5); PHOSPHORUS 5.4 mg/dl (2.5-4.9); POTASSIUM 3.6 mmol/L (3.5-5.1); SODIUM 135 mmol/L (135-144)
[2019-04-18] MEDS: BISACODYL 10 MG SUPP PR ×3 (06:00→22:00)
[2019-04-18] MEDS: MAGNESIUM HYDROXIDE 30ML CUP PO (08:41)
[2019-04-18] MEDS: POLYETHYLENE GLYCOL 17 GM PACKET PO (08:41)
[2019-04-18] MEDS: ESCITALOPRAM 10 MG TAB PO (08:42)
[2019-04-18] MEDS: ACETAZOLAMIDE 500 MG INJ IV (08:42)
[2019-04-18] MEDS: DOCUSATE SODIUM 100 MG CAP PO ×2 (08:42→21:14)
[2019-04-18] MEDS: oxyCODONE (CR) 20 MG TAB [oxyCONTIN] PO ×2 (08:42→21:16)
[2019-04-18] MEDS: SPIRONOLACTONE 50 MG TAB PO (08:42)
[2019-04-18] MEDS: LORATADINE 10 MG TAB PO (08:42)
[2019-04-18] MEDS: POTASSIUM CHLORIDE (SR) 20 MEQ TAB PO ×2 (08:43→21:15)
[2019-04-18] MEDS: ANASTROZOLE 1 MG TAB PO (08:44)
[2019-04-18] MEDS: BUDESONIDE (NEB) 0.5MG/2ML AMP HHN ×2 (09:00→20:56)
[2019-04-18] MEDS: FLUTICASONE 0.05% 16 GM NAS SPRAY NASAL ×2 (09:00→21:00)
[2019-04-18] MEDS: LIDOCAINE 1% (MPF) 5 ML VIAL (11:35)
[2019-04-18] MEDS: ENOXAPARIN 40 MG/0.4 ML SYG SC (12:30)
[2019-04-19] MEDS: GUAIFENESIN/CODEINE 5ML CUP PO ×6 (00:09→21:48)
[2019-04-19] MEDS: morphine 2 MG INJ IV (00:14)
[2019-04-19] MEDS: PANTOPRAZOLE (EC) 40 MG TAB PO (04:38)
[2019-04-19] MEDS: METOLAZONE 2.5 MG TAB PO ×2 (04:40→17:28)
[2019-04-19] MEDS: BISACODYL 10 MG SUPP PR ×3 (04:42→21:51)
[2019-04-19 05:26] LABS: ANION GAP 8 (5-13); BLOOD UREA NITROGEN 33 mg/dl (7-20); CALCIUM 9.1 mg/dl (8.4-10.2); CARBON DIOXIDE 29 mmol/L (21-31); CHLORIDE 98 mmol/L (97-110); CREATININE 1.03 mg/dl (0.44-1.00); Estimated GFR 55 mL/min (>60); GLUCOSE 108 mg/dl (70-220); MAGNESIUM 2.1 mg/dl (1.7-2.5); PHOSPHORUS 5.4 mg/dl (2.5-4.9); POTASSIUM 3.7 mmol/L (3.5-5.1); SODIUM 135 mmol/L (135-144)
[2019-04-19] MEDS: MAGNESIUM HYDROXIDE 30ML CUP PO (09:00)
[2019-04-19] MEDS: BUDESONIDE (NEB) 0.5MG/2ML AMP HHN ×2 (09:00→21:19)
[2019-04-19] MEDS: FLUTICASONE 0.05% 16 GM NAS SPRAY NASAL ×2 (09:00→21:00)
[2019-04-19] MEDS: SPIRONOLACTONE 50 MG TAB PO (09:03)
[2019-04-19] MEDS: POTASSIUM CHLORIDE (SR) 20 MEQ TAB PO ×2 (09:03→21:49)
[2019-04-19] MEDS: oxyCODONE (CR) 20 MG TAB [oxyCONTIN] PO ×2 (09:03→21:48)
[2019-04-19] MEDS: LORATADINE 10 MG TAB PO (09:03)
[2019-04-19] MEDS: DOCUSATE SODIUM 100 MG CAP PO ×2 (09:04→21:49)
[2019-04-19] MEDS: ESCITALOPRAM 10 MG TAB PO (09:04)
[2019-04-19] MEDS: POLYETHYLENE GLYCOL 17 GM PACKET PO (09:05)
[2019-04-19] MEDS: ANASTROZOLE 1 MG TAB PO (09:07)
[2019-04-19] MEDS: ENOXAPARIN 40 MG/0.4 ML SYG SC (09:12)
[2019-04-19] MEDS: BUMETANIDE 1 MG TAB PO (17:29)
[2019-04-19] MEDS: ACETAMINOPHEN 325 MG TAB PO (22:31)
[2019-04-20] MEDS: GUAIFENESIN/CODEINE 5ML CUP PO ×6 (01:00→21:00)
[2019-04-20] MEDS: METOLAZONE 2.5 MG TAB PO ×2 (05:34→17:18)
[2019-04-20 05:48] LABS: ANION GAP 6 (5-13); BLOOD UREA NITROGEN 35 mg/dl (7-20); CARBON DIOXIDE 31 mmol/L (21-31); CHLORIDE 99 mmol/L (97-110); CREATININE 1.03 mg/dl (0.44-1.00); Estimated GFR 55 mL/min (>60); GLUCOSE 127 mg/dl (70-220); PHOSPHORUS 5.6 mg/dl (2.5-4.9); POTASSIUM 3.5 mmol/L (3.5-5.1); SODIUM 136 mmol/L (135-144)
[2019-04-20] MEDS: BISACODYL 10 MG SUPP PR ×3 (06:00→22:00)
[2019-04-20] MEDS: BUMETANIDE 1 MG TAB PO ×2 (06:02→18:06)
[2019-04-20] MEDS: PANTOPRAZOLE (EC) 40 MG TAB PO (06:03)
[2019-04-20] MEDS: BUDESONIDE (NEB) 0.5MG/2ML AMP HHN ×2 (08:23→19:31)
[2019-04-20] MEDS: FLUTICASONE 0.05% 16 GM NAS SPRAY NASAL ×2 (08:41→21:00)
[2019-04-20] MEDS: DOCUSATE SODIUM 100 MG CAP PO ×2 (08:47→20:30)
[2019-04-20] MEDS: POLYETHYLENE GLYCOL 17 GM PACKET PO (08:47)
[2019-04-20] MEDS: SPIRONOLACTONE 50 MG TAB PO (08:47)
[2019-04-20] MEDS: MAGNESIUM HYDROXIDE 30ML CUP PO (08:47)
[2019-04-20] MEDS: POTASSIUM CHLORIDE (SR) 20 MEQ TAB PO ×2 (08:48→20:30)
[2019-04-20] MEDS: LORATADINE 10 MG TAB PO (08:48)
[2019-04-20] MEDS: oxyCODONE (CR) 20 MG TAB [oxyCONTIN] PO ×2 (08:48→20:27)
[2019-04-20] MEDS: ESCITALOPRAM 10 MG TAB PO (08:48)
[2019-04-20] MEDS: ENOXAPARIN 40 MG/0.4 ML SYG SC (08:52)
[2019-04-20] MEDS: ANASTROZOLE 1 MG TAB PO (08:52)
[2019-04-20] MEDS: morphine 2 MG INJ IV (23:35)
[2019-04-21] MEDS: GUAIFENESIN/CODEINE 5ML CUP PO ×6 (01:00→21:00)
[2019-04-21] MEDS: BUMETANIDE 1 MG TAB PO ×2 (04:59→18:21)
[2019-04-21] MEDS: PANTOPRAZOLE (EC) 40 MG TAB PO (05:00)
[2019-04-21] MEDS: METOLAZONE 2.5 MG TAB PO ×2 (05:01→18:21)
[2019-04-21] MEDS: BISACODYL 10 MG SUPP PR ×3 (05:23→22:00)
[2019-04-21 06:11] LABS: ADD MAN DIFF? NO
[2019-04-21 06:17] LABS: BASOPHILS % 0.6 % (0.0-2.0); EOSINOPHILS # 0.1 10^3/ul (0.0-0.5); EOSINOPHILS % 2.3 % (0.0-7.0); HEMATOCRIT 32.1 % (37.0-47.0); HEMOGLOBIN 10.6 g/dl (12.0-16.0); LYMPHOCYTES # 1.7 10^3/ul (0.8-2.9); LYMPHOCYTES % 36.1 % (15.0-51.0); MEAN CORPUSCULAR HEMOGLOBIN 32.7 pg (29.0-33.0); MEAN CORPUSCULAR VOLUME 99.1 fl (82.0-101.0); MEAN PLATELET VOLUME 9.5 fl (7.4-10.4); MONOCYTE # 0.7 10^3/ul (0.3-0.9); MONOCYTES % 13.8 % (0.0-11.0); NEUTROPHIL # 2.3 10^3/ul (1.6-7.5); NEUTROPHILS % 47.2 % (39.0-77.0); PLATELET COUNT 216 10^3/UL (140-415); RED BLOOD COUNT 3.24 10^6/ul (4.20-5.40); RED CELL DISTRIBUTION WIDTH 14.9 % (11.5-14.5)
[2019-04-21 06:17] LABS: WHITE BLOOD COUNT 4.8 10^3/ul (4.8-10.8)
[2019-04-21 06:56] LABS: ALANINE AMINOTRANSFERASE 37 IU/L (13-69); ALBUMIN 3.5 g/dl (3.3-4.9); ALBUMIN/GLOBULIN RATIO 1.12; ALKALINE PHOSPHATASE 95 IU/L (42-121); ANION GAP 8 (5-13); ASPARTATE AMINO TRANSFERASE 45 IU/L (15-46); BILIRUBIN,INDIRECT 0.4 mg/dl (0-1.1); BILIRUBIN,TOTAL 0.4 mg/dl (0.2-1.3); BLOOD UREA NITROGEN 37 mg/dl (7-20); CALCIUM 8.8 mg/dl (8.4-10.2); CARBON DIOXIDE 34 mmol/L (21-31); CHLORIDE 96 mmol/L (97-110); CREATININE 0.93 mg/dl (0.44-1.00); Estimated GFR > 60 mL/min (>60); GLUCOSE 106 mg/dl (70-220); SODIUM 138 mmol/L (135-144); TOTAL PROTEIN 6.6 g/dl (6.1-8.1)
[2019-04-21 07:06] LABS: POTASSIUM 2.9 mmol/L (3.5-5.1)
[2019-04-21] MEDS: POTASSIUM CHLORIDE (SR) 20 MEQ TAB PO ×4 (07:34→22:23)
[2019-04-21] MEDS: BUDESONIDE (NEB) 0.5MG/2ML AMP HHN ×2 (08:14→19:48)
[2019-04-21] MEDS: MAGNESIUM HYDROXIDE 30ML CUP PO (09:00)
[2019-04-21] MEDS: FLUTICASONE 0.05% 16 GM NAS SPRAY NASAL ×2 (09:00→21:00)
[2019-04-21] MEDS: ENOXAPARIN 40 MG/0.4 ML SYG SC (09:13)
[2019-04-21] MEDS: DOCUSATE SODIUM 100 MG CAP PO ×2 (09:13→22:23)
[2019-04-21] MEDS: POLYETHYLENE GLYCOL 17 GM PACKET PO (09:13)
[2019-04-21] MEDS: LORATADINE 10 MG TAB PO (09:14)
[2019-04-21] MEDS: ESCITALOPRAM 10 MG TAB PO (09:14)
[2019-04-21] MEDS: SPIRONOLACTONE 50 MG TAB PO (09:14)
[2019-04-21] MEDS: oxyCODONE (CR) 20 MG TAB [oxyCONTIN] PO ×2 (09:14→22:23)
[2019-04-21] MEDS: ANASTROZOLE 1 MG TAB PO (09:15)
[2019-04-21 14:40] LABS: POTASSIUM 3.9 mmol/L (3.5-5.1)
[2019-04-21 15:06] LABS: MAGNESIUM 1.9 mg/dl (1.7-2.5)
[2019-04-22] MEDS: GUAIFENESIN/CODEINE 5ML CUP PO ×6 (01:00→21:00)
[2019-04-22] MEDS: BUMETANIDE 1 MG TAB PO ×2 (05:46→17:57)
[2019-04-22] MEDS: METOLAZONE 2.5 MG TAB PO ×2 (05:46→18:00)
[2019-04-22] MEDS: PANTOPRAZOLE (EC) 40 MG TAB PO (05:47)
[2019-04-22] MEDS: BISACODYL 10 MG SUPP PR ×3 (06:00→21:39)
[2019-04-22] MEDS: BUDESONIDE (NEB) 0.5MG/2ML AMP HHN ×2 (08:07→20:00)
[2019-04-22] MEDS: MAGNESIUM HYDROXIDE 30ML CUP PO (09:00)
[2019-04-22] MEDS: FLUTICASONE 0.05% 16 GM NAS SPRAY NASAL ×2 (09:00→21:00)
[2019-04-22] MEDS: DOCUSATE SODIUM 100 MG CAP PO ×2 (09:01→21:34)
[2019-04-22] MEDS: ESCITALOPRAM 10 MG TAB PO (09:01)
[2019-04-22] MEDS: ANASTROZOLE 1 MG TAB PO (09:02)
[2019-04-22] MEDS: POTASSIUM CHLORIDE (SR) 20 MEQ TAB PO ×2 (09:02→21:34)
[2019-04-22] MEDS: LORATADINE 10 MG TAB PO (09:03)
[2019-04-22] MEDS: SPIRONOLACTONE 50 MG TAB PO (09:03)
[2019-04-22] MEDS: POLYETHYLENE GLYCOL 17 GM PACKET PO (09:03)
[2019-04-22] MEDS: oxyCODONE (CR) 20 MG TAB [oxyCONTIN] PO ×2 (09:03→21:34)
[2019-04-22] MEDS: ENOXAPARIN 40 MG/0.4 ML SYG SC (09:07)
[2019-04-23] MEDS: GUAIFENESIN/CODEINE 5ML CUP PO ×6 (01:00→20:22)
[2019-04-23] MEDS: BISACODYL 10 MG SUPP PR ×3 (06:00→21:45)
[2019-04-23] MEDS: METOLAZONE 2.5 MG TAB PO ×2 (06:14→18:03)
[2019-04-23] MEDS: BUMETANIDE 1 MG TAB PO ×2 (06:14→18:01)
[2019-04-23] MEDS: PANTOPRAZOLE (EC) 40 MG TAB PO (06:14)
[2019-04-23 06:16] LABS: ANION GAP 8 (5-13); BLOOD UREA NITROGEN 42 mg/dl (7-20); CALCIUM 8.9 mg/dl (8.4-10.2); CARBON DIOXIDE 38 mmol/L (21-31); CHLORIDE 92 mmol/L (97-110); CREATININE 0.92 mg/dl (0.44-1.00); Estimated GFR > 60 mL/min (>60); GLUCOSE 140 mg/dl (70-220); MAGNESIUM 1.9 mg/dl (1.7-2.5); PHOSPHORUS 5.3 mg/dl (2.5-4.9); SODIUM 138 mmol/L (135-144)
[2019-04-23] MEDS: BUDESONIDE (NEB) 0.5MG/2ML AMP HHN ×2 (08:36→20:00)
[2019-04-23] MEDS: FLUTICASONE 0.05% 16 GM NAS SPRAY NASAL ×2 (09:00→20:22)
[2019-04-23] MEDS: MAGNESIUM HYDROXIDE 30ML CUP PO (09:00)
[2019-04-23] MEDS: SPIRONOLACTONE 50 MG TAB PO (09:03)
[2019-04-23] MEDS: LORATADINE 10 MG TAB PO (09:03)
[2019-04-23] MEDS: ESCITALOPRAM 10 MG TAB PO (09:04)
[2019-04-23] MEDS: DOCUSATE SODIUM 100 MG CAP PO ×2 (09:04→20:21)
[2019-04-23] MEDS: POLYETHYLENE GLYCOL 17 GM PACKET PO (09:05)
[2019-04-23] MEDS: oxyCODONE (CR) 20 MG TAB [oxyCONTIN] PO ×2 (09:05→20:22)
[2019-04-23] MEDS: ANASTROZOLE 1 MG TAB PO (09:07)
[2019-04-23] MEDS: POTASSIUM CHLORIDE (SR) 20 MEQ TAB PO ×3 (09:09→20:21)
[2019-04-23] MEDS: ENOXAPARIN 40 MG/0.4 ML SYG SC (09:09)
[2019-04-23] MEDS: morphine 2 MG INJ IV ×2 (14:18→21:55)
[2019-04-23] MEDS ORDERED: LIDOCAINE 1% (MDV) 20 ML INJ (15:55)
[2019-04-23] MEDS: ONDANSETRON 4 MG INJ IV (20:21)
[2019-04-24] MEDS: GUAIFENESIN/CODEINE 5ML CUP PO ×5 (00:33→17:00)
[2019-04-24] MEDS: morphine 2 MG INJ IV ×2 (04:29→11:28)
[2019-04-24] MEDS: METOLAZONE 2.5 MG TAB PO ×2 (04:29→18:17)
[2019-04-24] MEDS: BISACODYL 10 MG SUPP PR ×2 (05:16→14:00)
[2019-04-24 05:44] LABS: ANION GAP 8 (5-13); BLOOD UREA NITROGEN 43 mg/dl (7-20); CALCIUM 8.6 mg/dl (8.4-10.2); CARBON DIOXIDE 37 mmol/L (21-31); CHLORIDE 90 mmol/L (97-110); CREATININE 0.97 mg/dl (0.44-1.00); Estimated GFR 59 mL/min (>60); GLUCOSE 123 mg/dl (70-220); MAGNESIUM 1.8 mg/dl (1.7-2.5); POTASSIUM 3.2 mmol/L (3.5-5.1); SODIUM 135 mmol/L (135-144)
[2019-04-24] MEDS: PANTOPRAZOLE (EC) 40 MG TAB PO (06:17)
[2019-04-24] MEDS: BUMETANIDE 1 MG TAB PO (06:17)
[2019-04-24] MEDS ORDERED: BUMETANIDE 0.5 MG TAB PO (09:00)
[2019-04-24] MEDS: MAGNESIUM HYDROXIDE 30ML CUP PO ×2 (09:00→18:44)
[2019-04-24] MEDS: FLUTICASONE 0.05% 16 GM NAS SPRAY NASAL ×2 (09:00→20:37)
[2019-04-24] MEDS: POLYETHYLENE GLYCOL 17 GM PACKET PO (09:27)
[2019-04-24] MEDS: POTASSIUM CHLORIDE (SR) 20 MEQ TAB PO ×3 (09:27→20:32)
[2019-04-24] MEDS: ESCITALOPRAM 10 MG TAB PO (09:28)
[2019-04-24] MEDS: oxyCODONE (CR) 20 MG TAB [oxyCONTIN] PO ×2 (09:28→20:32)
[2019-04-24] MEDS: SPIRONOLACTONE 50 MG TAB PO (09:28)
[2019-04-24] MEDS: ANASTROZOLE 1 MG TAB PO (09:29)
[2019-04-24] MEDS: ENOXAPARIN 40 MG/0.4 ML SYG SC (09:30)
[2019-04-24] MEDS: LORATADINE 10 MG TAB PO (09:36)
[2019-04-24] MEDS: DOCUSATE SODIUM 100 MG CAP PO ×2 (09:36→20:31)
[2019-04-24] MEDS: BUMETANIDE 0.5 MG TAB PO (09:36)
[2019-04-24] MEDS: ALBUTEROL/IPRATROPIUM (NEB) 3 ML AMP HHN ×2 (10:21→14:51)
[2019-04-24] MEDS: BUDESONIDE (NEB) 0.5MG/2ML AMP HHN ×2 (10:32→21:35)
[2019-04-24] MEDS: POTASSIUM CHLORIDE 20 MEQ POWDER FOR ORAL SOLN PO (12:24)
[2019-04-24] MEDS: DIPHENHYDRAMINE 25 MG CAP PO (14:35)
[2019-04-24] MEDS ORDERED: BISACODYL 10 MG SUPP PR (17:30)
[2019-04-24] MEDS ORDERED: GUAIFENESIN/CODEINE 5ML CUP PO (17:30)
[2019-04-25] MEDS: ACETAMINOPHEN 325 MG TAB PO (00:06)
[2019-04-25] MEDS: DIPHENHYDRAMINE 25 MG CAP PO ×2 (00:06→12:49)
[2019-04-25] MEDS: PANTOPRAZOLE (EC) 40 MG TAB PO (05:05)
[2019-04-25] MEDS: METOLAZONE 2.5 MG TAB PO ×2 (05:07→17:46)
[2019-04-25 06:16] LABS: ANION GAP 6 (5-13); BLOOD UREA NITROGEN 44 mg/dl (7-20); CALCIUM 8.7 mg/dl (8.4-10.2); CARBON DIOXIDE 38 mmol/L (21-31); CHLORIDE 92 mmol/L (97-110); CREATININE 0.94 mg/dl (0.44-1.00); Estimated GFR > 60 mL/min (>60); GLUCOSE 115 mg/dl (70-220); MAGNESIUM 2.1 mg/dl (1.7-2.5); PHOSPHORUS 5.3 mg/dl (2.5-4.9); POTASSIUM 3.7 mmol/L (3.5-5.1); SODIUM 136 mmol/L (135-144)
[2019-04-25 07:52] LABS: IONIZED CALCIUM 1.1 mmol/L (1.1-1.4)
[2019-04-25] MEDS: LORATADINE 10 MG TAB PO (08:42)
[2019-04-25] MEDS: DOCUSATE SODIUM 100 MG CAP PO ×2 (08:42→22:07)
[2019-04-25] MEDS: SPIRONOLACTONE 50 MG TAB PO (08:42)
[2019-04-25] MEDS: ESCITALOPRAM 10 MG TAB PO (08:43)
[2019-04-25] MEDS: POTASSIUM CHLORIDE (SR) 20 MEQ TAB PO ×2 (08:43→22:08)
[2019-04-25] MEDS: POLYETHYLENE GLYCOL 17 GM PACKET PO (08:43)
[2019-04-25] MEDS: BUMETANIDE 0.5 MG TAB PO (08:43)
[2019-04-25] MEDS: oxyCODONE (CR) 20 MG TAB [oxyCONTIN] PO ×2 (08:43→22:05)
[2019-04-25] MEDS: ANASTROZOLE 1 MG TAB PO (08:44)
[2019-04-25] MEDS: ENOXAPARIN 40 MG/0.4 ML SYG SC (08:45)
[2019-04-25] MEDS: FLUTICASONE 0.05% 16 GM NAS SPRAY NASAL ×2 (09:00→21:00)
[2019-04-25] MEDS: BUDESONIDE (NEB) 0.5MG/2ML AMP HHN ×2 (09:00→19:50)
[2019-04-25 11:58] LABS: PARATHYROID HORMONE 18.1 pg/ml (24.0-73.0)
[2019-04-26] MEDS: DIPHENHYDRAMINE 25 MG CAP PO ×3 (01:56→23:11)
[2019-04-26] MEDS: morphine 2 MG INJ IV (01:57)
[2019-04-26] MEDS: IBUPROFEN 400 MG TAB PO (03:05)
[2019-04-26 05:17] LABS: ANION GAP 6 (5-13); BLOOD UREA NITROGEN 40 mg/dl (7-20); CALCIUM 8.9 mg/dl (8.4-10.2); CARBON DIOXIDE 38 mmol/L (21-31); CHLORIDE 94 mmol/L (97-110); CREATININE 0.78 mg/dl (0.44-1.00); Estimated GFR > 60 mL/min (>60); GLUCOSE 113 mg/dl (70-220); MAGNESIUM 2.1 mg/dl (1.7-2.5); PHOSPHORUS 4.7 mg/dl (2.5-4.9); POTASSIUM 3.8 mmol/L (3.5-5.1); SODIUM 138 mmol/L (135-144)
[2019-04-26] MEDS: PANTOPRAZOLE (EC) 40 MG TAB PO (05:42)
[2019-04-26] MEDS: METOLAZONE 2.5 MG TAB PO ×2 (05:42→19:08)
[2019-04-26] MEDS: BUDESONIDE (NEB) 0.5MG/2ML AMP HHN (08:21)
[2019-04-26] MEDS: SPIRONOLACTONE 50 MG TAB PO (08:42)
[2019-04-26] MEDS: ESCITALOPRAM 10 MG TAB PO (08:42)
[2019-04-26] MEDS: LORATADINE 10 MG TAB PO (08:43)
[2019-04-26] MEDS: DOCUSATE SODIUM 100 MG CAP PO ×2 (08:43→22:14)
[2019-04-26] MEDS: POTASSIUM CHLORIDE (SR) 20 MEQ TAB PO ×2 (08:43→22:15)
[2019-04-26] MEDS: BUMETANIDE 0.5 MG TAB PO (08:43)
[2019-04-26] MEDS: ANASTROZOLE 1 MG TAB PO (08:44)
[2019-04-26] MEDS: POLYETHYLENE GLYCOL 17 GM PACKET PO (08:45)
[2019-04-26] MEDS: oxyCODONE (CR) 20 MG TAB [oxyCONTIN] PO ×2 (08:45→22:14)
[2019-04-26] MEDS: ENOXAPARIN 40 MG/0.4 ML SYG SC (08:45)
[2019-04-26] MEDS: FLUTICASONE 0.05% 16 GM NAS SPRAY NASAL (09:00)
[2019-04-27 05:42] LABS: ADD MAN DIFF? NO
[2019-04-27 05:51] LABS: EOSINOPHILS # 0.2 10^3/ul (0.0-0.5); EOSINOPHILS % 4.3 % (0.0-7.0); HEMOGLOBIN 11.8 g/dl (12.0-16.0); LYMPHOCYTES # 1.7 10^3/ul (0.8-2.9); LYMPHOCYTES % 42.9 % (15.0-51.0); MEAN CORPUSCULAR HGB CONC 32.8 g/dl (32.0-37.0); MEAN CORPUSCULAR VOLUME 100.6 fl (82.0-101.0); MEAN PLATELET VOLUME 9.7 fl (7.4-10.4); MONOCYTE # 0.6 10^3/ul (0.3-0.9); MONOCYTES % 13.8 % (0.0-11.0); NEUTROPHIL # 1.5 10^3/ul (1.6-7.5); PLATELET COUNT 208 10^3/UL (140-415); RED BLOOD COUNT 3.58 10^6/ul (4.20-5.40); RED CELL DISTRIBUTION WIDTH 14.6 % (11.5-14.5)
[2019-04-27] MEDS: PANTOPRAZOLE (EC) 40 MG TAB PO (06:23)
[2019-04-27] MEDS: METOLAZONE 2.5 MG TAB PO ×2 (06:23→18:02)
[2019-04-27 06:26] LABS: ALANINE AMINOTRANSFERASE 38 IU/L (13-69); ALBUMIN 3.4 g/dl (3.3-4.9); ALBUMIN/GLOBULIN RATIO 1.06; ALKALINE PHOSPHATASE 83 IU/L (42-121); ANION GAP 8 (5-13); ASPARTATE AMINO TRANSFERASE 40 IU/L (15-46); BILIRUBIN,INDIRECT 0.5 mg/dl (0-1.1); BILIRUBIN,TOTAL 0.5 mg/dl (0.2-1.3); BLOOD UREA NITROGEN 35 mg/dl (7-20); CARBON DIOXIDE 36 mmol/L (21-31); CHLORIDE 94 mmol/L (97-110); CREATININE 0.81 mg/dl (0.44-1.00); Estimated GFR > 60 mL/min (>60); GLUCOSE 126 mg/dl (70-220); SODIUM 138 mmol/L (135-144); TOTAL PROTEIN 6.6 g/dl (6.1-8.1)
[2019-04-27] MEDS: BUMETANIDE 0.5 MG TAB PO (08:58)
[2019-04-27] MEDS: POTASSIUM CHLORIDE (SR) 20 MEQ TAB PO ×2 (08:58→21:24)
[2019-04-27] MEDS: SPIRONOLACTONE 50 MG TAB PO (08:59)
[2019-04-27] MEDS: oxyCODONE (CR) 20 MG TAB [oxyCONTIN] PO ×3 (09:00→21:00)
[2019-04-27] MEDS: ENOXAPARIN 40 MG/0.4 ML SYG SC (09:02)
[2019-04-27] MEDS: ANASTROZOLE 1 MG TAB PO (09:02)
[2019-04-27] MEDS: DOCUSATE SODIUM 100 MG CAP PO (09:03)
[2019-04-27] MEDS: LORATADINE 10 MG TAB PO (09:03)
[2019-04-27] MEDS: POLYETHYLENE GLYCOL 17 GM PACKET PO (09:04)
[2019-04-27] MEDS: ESCITALOPRAM 10 MG TAB PO (09:04)
[2019-04-27] MEDS: DIPHENHYDRAMINE 25 MG CAP PO ×2 (13:21→21:24)
[2019-04-27 15:06] LABS: INR 0.97
[2019-04-27 15:07] LABS: PARTIAL THROMBOPLASTIN TIME 36.7 Sec (23.0-35.0)
[2019-04-27] MEDS: BUDESONIDE (NEB) 0.5MG/2ML AMP HHN (20:06)
[2019-04-27] MEDS: IBUPROFEN 400 MG TAB PO (21:24)
[2019-04-28] MEDS: morphine 2 MG INJ IV ×2 (00:29→05:31)
[2019-04-28] MEDS: METOLAZONE 2.5 MG TAB PO ×2 (05:31→17:30)
[2019-04-28] MEDS: BUMETANIDE 0.5 MG TAB PO (08:44)
[2019-04-28] MEDS: POTASSIUM CHLORIDE (SR) 20 MEQ TAB PO ×2 (08:44→21:49)
[2019-04-28] MEDS: oxyCODONE (CR) 20 MG TAB [oxyCONTIN] PO ×2 (08:44→21:50)
[2019-04-28] MEDS: MAGNESIUM HYDROXIDE 30ML CUP PO (08:45)
[2019-04-28] MEDS: IBUPROFEN 400 MG TAB PO (08:55)
[2019-04-28] MEDS: DIPHENHYDRAMINE 25 MG CAP PO (08:55)
[2019-04-28] MEDS: BUDESONIDE (NEB) 0.5MG/2ML AMP HHN ×2 (09:43→20:00)
[2019-04-28] MEDS: ESCITALOPRAM 10 MG TAB PO (18:42)
[2019-04-29 06:07] LABS: ADD MAN DIFF? NO
[2019-04-29] MEDS: METOLAZONE 2.5 MG TAB PO ×2 (06:17→18:05)
[2019-04-29 06:28] LABS: BASOPHIL # 0.1 10^3/ul (0.0-0.1); BASOPHILS % 1.4 % (0.0-2.0); EOSINOPHILS # 0.2 10^3/ul (0.0-0.5); EOSINOPHILS % 3.9 % (0.0-7.0); HEMATOCRIT 33.6 % (37.0-47.0); HEMOGLOBIN 11.2 g/dl (12.0-16.0); LYMPHOCYTES # 1.9 10^3/ul (0.8-2.9); LYMPHOCYTES % 43.2 % (15.0-51.0); MEAN CORPUSCULAR HEMOGLOBIN 33.2 pg (29.0-33.0); MEAN CORPUSCULAR HGB CONC 33.3 g/dl (32.0-37.0); MEAN CORPUSCULAR VOLUME 99.7 fl (82.0-101.0); MEAN PLATELET VOLUME 9.6 fl (7.4-10.4); MONOCYTE # 0.6 10^3/ul (0.3-0.9); MONOCYTES % 13.7 % (0.0-11.0); NEUTROPHIL # 1.7 10^3/ul (1.6-7.5); NEUTROPHILS % 37.8 % (39.0-77.0); PLATELET COUNT 192 10^3/UL (140-415); RED BLOOD COUNT 3.37 10^6/ul (4.20-5.40); RED CELL DISTRIBUTION WIDTH 14.3 % (11.5-14.5)
[2019-04-29 06:28] LABS: WHITE BLOOD COUNT 4.4 10^3/ul (4.8-10.8)
[2019-04-29 06:48] LABS: ANION GAP 5 (5-13); BLOOD UREA NITROGEN 31 mg/dl (7-20); CALCIUM 8.9 mg/dl (8.4-10.2); CARBON DIOXIDE 34 mmol/L (21-31); CHLORIDE 96 mmol/L (97-110); CREATININE 0.81 mg/dl (0.44-1.00); Estimated GFR > 60 mL/min (>60); GLUCOSE 96 mg/dl (70-220); PHOSPHORUS 5.4 mg/dl (2.5-4.9); POTASSIUM 3.8 mmol/L (3.5-5.1); SODIUM 135 mmol/L (135-144)
[2019-04-29] MEDS: LIDOCAINE 1% (MPF) 5 ML VIAL (08:48)
[2019-04-29] MEDS: BUDESONIDE (NEB) 0.5MG/2ML AMP HHN ×2 (09:00→19:26)
[2019-04-29] MEDS: oxyCODONE (CR) 20 MG TAB [oxyCONTIN] PO ×2 (09:46→20:27)
[2019-04-29] MEDS: ESCITALOPRAM 10 MG TAB PO (09:46)
[2019-04-29] MEDS: POTASSIUM CHLORIDE (SR) 20 MEQ TAB PO ×2 (09:46→20:28)
[2019-04-29] MEDS: BUMETANIDE 0.5 MG TAB PO (09:46)
[2019-04-29] MEDS: POLYETHYLENE GLYCOL 17 GM PACKET PO (10:56)
[2019-04-29] MEDS: SPIRONOLACTONE 50 MG TAB PO (10:57)
[2019-04-29] MEDS: LORATADINE 10 MG TAB PO (10:57)
[2019-04-29] MEDS: PANTOPRAZOLE (EC) 40 MG TAB PO (10:57)
[2019-04-29] MEDS: DOCUSATE SODIUM 100 MG CAP PO ×2 (10:57→20:27)
[2019-04-29] MEDS: ANASTROZOLE 1 MG TAB PO (10:58)
[2019-04-29] MEDS: DIPHENHYDRAMINE 25 MG CAP PO (14:36)
[2019-04-30] MEDS: DIPHENHYDRAMINE 25 MG CAP PO ×2 (02:44→13:21)
[2019-04-30] MEDS: PANTOPRAZOLE (EC) 40 MG TAB PO (06:21)
[2019-04-30] MEDS: METOLAZONE 2.5 MG TAB PO ×2 (06:21→18:03)
[2019-04-30] MEDS: BUDESONIDE (NEB) 0.5MG/2ML AMP HHN ×2 (08:24→20:00)
[2019-04-30] MEDS: BUMETANIDE 0.5 MG TAB PO (08:48)
[2019-04-30] MEDS: LORATADINE 10 MG TAB PO (08:48)
[2019-04-30] MEDS: POTASSIUM CHLORIDE (SR) 20 MEQ TAB PO ×2 (08:49→21:22)
[2019-04-30] MEDS: ESCITALOPRAM 10 MG TAB PO (08:49)
[2019-04-30] MEDS: SPIRONOLACTONE 50 MG TAB PO (08:49)
[2019-04-30] MEDS: DOCUSATE SODIUM 100 MG CAP PO ×2 (08:49→21:26)
[2019-04-30] MEDS: POLYETHYLENE GLYCOL 17 GM PACKET PO (08:50)
[2019-04-30] MEDS: ANASTROZOLE 1 MG TAB PO (08:51)
[2019-04-30] MEDS: oxyCODONE (CR) 20 MG TAB [oxyCONTIN] PO ×2 (08:59→21:21)
[2019-05-01] MEDS: DIPHENHYDRAMINE 25 MG CAP PO ×4 (00:08→22:42)
[2019-05-01] MEDS: METOLAZONE 2.5 MG TAB PO ×2 (05:36→18:13)
[2019-05-01] MEDS: PANTOPRAZOLE (EC) 40 MG TAB PO (05:36)
[2019-05-01] MEDS: BUDESONIDE (NEB) 0.5MG/2ML AMP HHN ×2 (09:00→20:00)
[2019-05-01] MEDS: POLYETHYLENE GLYCOL 17 GM PACKET PO (09:38)
[2019-05-01] MEDS: BUMETANIDE 0.5 MG TAB PO (09:39)
[2019-05-01] MEDS: ESCITALOPRAM 10 MG TAB PO (09:39)
[2019-05-01] MEDS: POTASSIUM CHLORIDE (SR) 20 MEQ TAB PO ×2 (09:39→20:38)
[2019-05-01] MEDS: SPIRONOLACTONE 50 MG TAB PO (09:39)
[2019-05-01] MEDS: DOCUSATE SODIUM 100 MG CAP PO ×2 (09:39→20:38)
[2019-05-01] MEDS: LORATADINE 10 MG TAB PO (09:39)
[2019-05-01] MEDS: ANASTROZOLE 1 MG TAB PO (09:41)
[2019-05-01] MEDS: oxyCODONE (CR) 20 MG TAB [oxyCONTIN] PO ×2 (09:44→20:38)
[2019-05-01] MEDS: LIDOCAINE 1% (MPF) 5 ML VIAL (20:36)
[2019-05-01] MEDS: DICLOFENAC SODIUM 1% GEL 100 GM TUBE TP (22:00)
[2019-05-02] MEDS: PANTOPRAZOLE (EC) 40 MG TAB PO (05:55)
[2019-05-02] MEDS: METOLAZONE 2.5 MG TAB PO ×2 (05:55→18:19)
[2019-05-02] MEDS: BUDESONIDE (NEB) 0.5MG/2ML AMP HHN ×2 (09:00→20:00)
[2019-05-02] MEDS: DICLOFENAC SODIUM 1% GEL 100 GM TUBE TP ×4 (09:00→21:05)
[2019-05-02] MEDS: POTASSIUM CHLORIDE (SR) 20 MEQ TAB PO ×2 (09:59→21:05)
[2019-05-02] MEDS: SPIRONOLACTONE 50 MG TAB PO (09:59)
[2019-05-02] MEDS: ESCITALOPRAM 10 MG TAB PO (09:59)
[2019-05-02] MEDS: LORATADINE 10 MG TAB PO (09:59)
[2019-05-02] MEDS: DOCUSATE SODIUM 100 MG CAP PO ×2 (09:59→21:05)
[2019-05-02] MEDS: BUMETANIDE 0.5 MG TAB PO (09:59)
[2019-05-02] MEDS: POLYETHYLENE GLYCOL 17 GM PACKET PO (10:00)
[2019-05-02] MEDS: ANASTROZOLE 1 MG TAB PO (10:01)
[2019-05-02] MEDS: oxyCODONE (CR) 20 MG TAB [oxyCONTIN] PO ×2 (10:14→21:08)
[2019-05-02] MEDS: DIPHENHYDRAMINE 25 MG CAP PO (14:15)
[2019-05-03] MEDS: DIPHENHYDRAMINE 25 MG CAP PO ×2 (03:21→14:06)
[2019-05-03] MEDS: PANTOPRAZOLE (EC) 40 MG TAB PO (06:33)
[2019-05-03] MEDS: METOLAZONE 2.5 MG TAB PO ×2 (07:32→18:18)
[2019-05-03] MEDS: BUDESONIDE (NEB) 0.5MG/2ML AMP HHN ×2 (09:00→20:00)
[2019-05-03] MEDS: DOCUSATE SODIUM 100 MG CAP PO ×2 (09:30→21:12)
[2019-05-03] MEDS: BUMETANIDE 0.5 MG TAB PO (09:30)
[2019-05-03] MEDS: POLYETHYLENE GLYCOL 17 GM PACKET PO (09:30)
[2019-05-03] MEDS: LORATADINE 10 MG TAB PO (09:31)
[2019-05-03] MEDS: POTASSIUM CHLORIDE (SR) 20 MEQ TAB PO ×2 (09:31→21:13)
[2019-05-03] MEDS: SPIRONOLACTONE 50 MG TAB PO (09:31)
[2019-05-03] MEDS: ESCITALOPRAM 10 MG TAB PO (09:31)
[2019-05-03] MEDS: DICLOFENAC SODIUM 1% GEL 100 GM TUBE TP ×4 (09:32→21:13)
[2019-05-03] MEDS: ANASTROZOLE 1 MG TAB PO (09:32)
[2019-05-03] MEDS: oxyCODONE (CR) 20 MG TAB [oxyCONTIN] PO ×2 (09:39→21:13)
[2019-05-04] MEDS: DIPHENHYDRAMINE 25 MG CAP PO ×2 (00:44→23:27)
[2019-05-04] MEDS: PANTOPRAZOLE (EC) 40 MG TAB PO (07:00)
[2019-05-04] MEDS: METOLAZONE 2.5 MG TAB PO ×2 (07:04→18:13)
[2019-05-04] MEDS: POLYETHYLENE GLYCOL 17 GM PACKET PO (08:56)
[2019-05-04] MEDS: SPIRONOLACTONE 50 MG TAB PO (08:56)
[2019-05-04] MEDS: DOCUSATE SODIUM 100 MG CAP PO ×2 (08:58→20:22)
[2019-05-04] MEDS: ANASTROZOLE 1 MG TAB PO (08:58)
[2019-05-04] MEDS: POTASSIUM CHLORIDE (SR) 20 MEQ TAB PO ×2 (08:58→20:23)
[2019-05-04] MEDS: DICLOFENAC SODIUM 1% GEL 100 GM TUBE TP ×4 (08:59→20:23)
[2019-05-04] MEDS: ESCITALOPRAM 10 MG TAB PO (08:59)
[2019-05-04] MEDS: BUMETANIDE 0.5 MG TAB PO (08:59)
[2019-05-04] MEDS: oxyCODONE (CR) 20 MG TAB [oxyCONTIN] PO ×2 (08:59→20:22)
[2019-05-04] MEDS: LORATADINE 10 MG TAB PO (08:59)
[2019-05-04] MEDS: BUDESONIDE (NEB) 0.5MG/2ML AMP HHN ×2 (09:00→20:00)
[2019-05-05] MEDS: PANTOPRAZOLE (EC) 40 MG TAB PO (07:24)
[2019-05-05] MEDS: METOLAZONE 2.5 MG TAB PO ×2 (07:30→17:42)
[2019-05-05] MEDS: ANASTROZOLE 1 MG TAB PO (10:07)
[2019-05-05] MEDS: DOCUSATE SODIUM 100 MG CAP PO ×2 (10:08→22:00)
[2019-05-05] MEDS: ESCITALOPRAM 10 MG TAB PO (10:08)
[2019-05-05] MEDS: LORATADINE 10 MG TAB PO (10:08)
[2019-05-05] MEDS: BUMETANIDE 0.5 MG TAB PO (10:08)
[2019-05-05] MEDS: POTASSIUM CHLORIDE (SR) 20 MEQ TAB PO ×2 (10:08→22:00)
[2019-05-05] MEDS: oxyCODONE (CR) 20 MG TAB [oxyCONTIN] PO ×2 (10:09→22:01)
[2019-05-05] MEDS: DICLOFENAC SODIUM 1% GEL 100 GM TUBE TP ×4 (10:09→22:03)
[2019-05-05] MEDS: SPIRONOLACTONE 50 MG TAB PO (10:09)
[2019-05-05] MEDS: POLYETHYLENE GLYCOL 17 GM PACKET PO (10:09)
[2019-05-05] MEDS ORDERED: BUDESONIDE (NEB) 0.5MG/2ML AMP HHN (13:00)
[2019-05-06 05:13] LABS: ADD MAN DIFF? NO
[2019-05-06 05:23] LABS: WHITE BLOOD COUNT 4.6 10^3/ul (4.8-10.8)
[2019-05-06 05:23] LABS: BASOPHIL # 0.1 10^3/ul (0.0-0.1); BASOPHILS % 1.3 % (0.0-2.0); EOSINOPHILS # 0.2 10^3/ul (0.0-0.5); EOSINOPHILS % 3.5 % (0.0-7.0); HEMATOCRIT 33.9 % (37.0-47.0); HEMOGLOBIN 11.4 g/dl (12.0-16.0); LYMPHOCYTES # 1.8 10^3/ul (0.8-2.9); LYMPHOCYTES % 39.4 % (15.0-51.0); MEAN CORPUSCULAR HEMOGLOBIN 33.5 pg (29.0-33.0); MEAN CORPUSCULAR HGB CONC 33.6 g/dl (32.0-37.0); MEAN CORPUSCULAR VOLUME 99.7 fl (82.0-101.0); MEAN PLATELET VOLUME 9.4 fl (7.4-10.4); MONOCYTE # 0.5 10^3/ul (0.3-0.9); MONOCYTES % 11.8 % (0.0-11.0); NEUTROPHILS % 43.8 % (39.0-77.0); PLATELET COUNT 185 10^3/UL (140-415); RED CELL DISTRIBUTION WIDTH 13.5 % (11.5-14.5)
[2019-05-06 05:58] LABS: ALANINE AMINOTRANSFERASE 41 IU/L (13-69); ALKALINE PHOSPHATASE 77 IU/L (42-121); ANION GAP 5 (5-13); ASPARTATE AMINO TRANSFERASE 42 IU/L (15-46); BILIRUBIN,INDIRECT 0.5 mg/dl (0-1.1); BILIRUBIN,TOTAL 0.5 mg/dl (0.2-1.3); BLOOD UREA NITROGEN 27 mg/dl (7-20); CARBON DIOXIDE 33 mmol/L (21-31); CHLORIDE 97 mmol/L (97-110); CREATININE 0.85 mg/dl (0.44-1.00); Estimated GFR > 60 mL/min (>60); GLUCOSE 101 mg/dl (70-220); SODIUM 135 mmol/L (135-144)
[2019-05-06] MEDS: PANTOPRAZOLE (EC) 40 MG TAB PO (06:58)
[2019-05-06] MEDS: METOLAZONE 2.5 MG TAB PO ×2 (07:00→18:01)
[2019-05-06] MEDS: DOCUSATE SODIUM 100 MG CAP PO ×2 (09:02→20:24)
[2019-05-06] MEDS: LORATADINE 10 MG TAB PO (09:02)
[2019-05-06] MEDS: BUMETANIDE 0.5 MG TAB PO (09:02)
[2019-05-06] MEDS: POTASSIUM CHLORIDE (SR) 20 MEQ TAB PO ×2 (09:02→20:24)
[2019-05-06] MEDS: SPIRONOLACTONE 50 MG TAB PO (09:02)
[2019-05-06] MEDS: ESCITALOPRAM 10 MG TAB PO (09:02)
[2019-05-06] MEDS: oxyCODONE (CR) 20 MG TAB [oxyCONTIN] PO ×2 (09:02→20:25)
[2019-05-06] MEDS: POLYETHYLENE GLYCOL 17 GM PACKET PO (09:03)
[2019-05-06] MEDS: ANASTROZOLE 1 MG TAB PO (09:03)
[2019-05-06] MEDS: DICLOFENAC SODIUM 1% GEL 100 GM TUBE TP ×4 (09:03→20:25)
[2019-05-06] MEDS: DIPHENHYDRAMINE 25 MG CAP PO (20:26)
[2019-05-07] MEDS: METOLAZONE 2.5 MG TAB PO ×2 (05:38→17:58)
[2019-05-07] MEDS: PANTOPRAZOLE (EC) 40 MG TAB PO (05:38)
[2019-05-07 08:44] LABS: WHITE BLOOD COUNT 4.1 10^3/ul (4.8-10.8)
[2019-05-07] MEDS: SPIRONOLACTONE 50 MG TAB PO (09:34)
[2019-05-07] MEDS: LORATADINE 10 MG TAB PO (09:34)
[2019-05-07] MEDS: ESCITALOPRAM 10 MG TAB PO (09:34)
[2019-05-07] MEDS: POTASSIUM CHLORIDE (SR) 20 MEQ TAB PO ×2 (09:34→21:00)
[2019-05-07] MEDS: oxyCODONE (CR) 20 MG TAB [oxyCONTIN] PO ×2 (09:35→21:01)
[2019-05-07] MEDS: POLYETHYLENE GLYCOL 17 GM PACKET PO (09:35)
[2019-05-07] MEDS: DOCUSATE SODIUM 100 MG CAP PO ×2 (09:35→21:00)
[2019-05-07] MEDS: BUMETANIDE 0.5 MG TAB PO (09:36)
[2019-05-07] MEDS: DICLOFENAC SODIUM 1% GEL 100 GM TUBE TP ×4 (09:36→21:01)
[2019-05-07] MEDS: ANASTROZOLE 1 MG TAB PO (09:38)
[2019-05-07] MEDS: LIDOCAINE 1% (MPF) 5 ML VIAL (10:34)
[2019-05-07] MEDS: CIPROFLOXACIN HCL OTIC DROP 0.25 ML LEFT EAR ×2 (15:50→21:00)
[2019-05-07] MEDS: ERGOCALCIFEROL 50,000 UNIT CAP PO (17:57)
[2019-05-08] MEDS: morphine 2 MG INJ IV (00:36)
[2019-05-08] MEDS: PANTOPRAZOLE (EC) 40 MG TAB PO (06:09)
[2019-05-08] MEDS: METOLAZONE 2.5 MG TAB PO ×2 (06:09→18:24)
[2019-05-08] MEDS: BUMETANIDE 0.5 MG TAB PO (08:44)
[2019-05-08] MEDS: LORATADINE 10 MG TAB PO (08:45)
[2019-05-08] MEDS: POTASSIUM CHLORIDE (SR) 20 MEQ TAB PO ×2 (08:45→20:31)
[2019-05-08] MEDS: SPIRONOLACTONE 50 MG TAB PO (08:45)
[2019-05-08] MEDS: oxyCODONE (CR) 20 MG TAB [oxyCONTIN] PO ×2 (08:45→20:31)
[2019-05-08] MEDS: ESCITALOPRAM 10 MG TAB PO (08:45)
[2019-05-08] MEDS: POLYETHYLENE GLYCOL 17 GM PACKET PO (08:45)
[2019-05-08] MEDS: CIPROFLOXACIN HCL OTIC DROP 0.25 ML LEFT EAR ×2 (08:45→20:37)
[2019-05-08] MEDS: DOCUSATE SODIUM 100 MG CAP PO ×2 (08:45→20:32)
[2019-05-08] MEDS: ANASTROZOLE 1 MG TAB PO (08:47)
[2019-05-08] MEDS: DICLOFENAC SODIUM 1% GEL 100 GM TUBE TP ×4 (08:48→20:32)
[2019-05-08] MEDS: LIDOCAINE 1% (MPF) 5 ML VIAL (10:19)
[2019-05-08] MEDS: SOD CHLORIDE 0.9% 100 ML (10:42)
[2019-05-08] MEDS: IOHEXOL 300MG/ML 150 ML BTL (10:43)
[2019-05-08 11:25] LABS: WHITE BLOOD COUNT 4.1 10^3/ul (4.8-10.8)
[2019-05-08] MEDS: IOHEXOL 14.3 MG(I)/ML (ADULT) BTL PO (13:11)
[2019-05-09] MEDS: FUROSEMIDE 20 MG INJ IV (00:07)
[2019-05-09] MEDS: DIPHENHYDRAMINE 25 MG CAP PO (05:27)
[2019-05-09] MEDS: METOLAZONE 2.5 MG TAB PO ×2 (05:29→17:40)
[2019-05-09] MEDS: DOCUSATE SODIUM 100 MG CAP PO ×2 (09:13→21:23)
[2019-05-09] MEDS: oxyCODONE (CR) 20 MG TAB [oxyCONTIN] PO ×2 (09:13→21:24)
[2019-05-09] MEDS: PANTOPRAZOLE (EC) 40 MG TAB PO (09:14)
[2019-05-09] MEDS: ESCITALOPRAM 10 MG TAB PO (09:14)
[2019-05-09] MEDS: POLYETHYLENE GLYCOL 17 GM PACKET PO (09:14)
[2019-05-09] MEDS: POTASSIUM CHLORIDE (SR) 20 MEQ TAB PO ×2 (09:15→21:24)
[2019-05-09] MEDS: LORATADINE 10 MG TAB PO (09:15)
[2019-05-09] MEDS: SPIRONOLACTONE 50 MG TAB PO (09:16)
[2019-05-09] MEDS: PAMIDRONATE 60 MG in SOD CHLORIDE 0.9% 500 ML IV (09:16)
[2019-05-09] MEDS: ANASTROZOLE 1 MG TAB PO (09:16)
[2019-05-09] MEDS: CIPROFLOXACIN HCL OTIC DROP 0.25 ML LEFT EAR ×2 (09:17→21:23)
[2019-05-09] MEDS: BUMETANIDE 0.5 MG TAB PO (09:17)
[2019-05-09] MEDS: DICLOFENAC SODIUM 1% GEL 100 GM TUBE TP ×4 (09:20→21:25)
[2019-05-09] MEDS ORDERED: FUROSEMIDE (10 MG/ML) IV SYG IV (11:00)
[2019-05-10] MEDS: METOLAZONE 2.5 MG TAB PO ×2 (05:40→17:05)
[2019-05-10] MEDS: PANTOPRAZOLE (EC) 40 MG TAB PO (05:43)
[2019-05-10] MEDS: POTASSIUM CHLORIDE (SR) 20 MEQ TAB PO ×2 (08:25→22:22)
[2019-05-10] MEDS: LORATADINE 10 MG TAB PO (08:25)
[2019-05-10] MEDS: DOCUSATE SODIUM 100 MG CAP PO ×2 (08:25→22:21)
[2019-05-10] MEDS: SPIRONOLACTONE 50 MG TAB PO (08:25)
[2019-05-10] MEDS: oxyCODONE (CR) 20 MG TAB [oxyCONTIN] PO ×2 (08:26→22:22)
[2019-05-10] MEDS: POLYETHYLENE GLYCOL 17 GM PACKET PO (08:26)
[2019-05-10] MEDS: DICLOFENAC SODIUM 1% GEL 100 GM TUBE TP ×4 (08:26→22:22)
[2019-05-10] MEDS: ESCITALOPRAM 10 MG TAB PO (08:26)
[2019-05-10] MEDS: BUMETANIDE 0.5 MG TAB PO (08:26)
[2019-05-10] MEDS: ANASTROZOLE 1 MG TAB PO (08:28)
[2019-05-10] MEDS: DIPHENHYDRAMINE 25 MG CAP PO (11:46)
[2019-05-11] MEDS: morphine 2 MG INJ IV (01:33)
[2019-05-11] MEDS: PANTOPRAZOLE (EC) 40 MG TAB PO (05:48)
[2019-05-11] MEDS: METOLAZONE 2.5 MG TAB PO ×2 (05:49→18:30)
[2019-05-11] MEDS: DOCUSATE SODIUM 100 MG CAP PO ×2 (09:17→21:17)
[2019-05-11] MEDS: SPIRONOLACTONE 50 MG TAB PO (09:17)
[2019-05-11] MEDS: oxyCODONE (CR) 20 MG TAB [oxyCONTIN] PO ×2 (09:17→21:18)
[2019-05-11] MEDS: BUMETANIDE 0.5 MG TAB PO (09:17)
[2019-05-11] MEDS: LORATADINE 10 MG TAB PO (09:17)
[2019-05-11] MEDS: ESCITALOPRAM 10 MG TAB PO (09:17)
[2019-05-11] MEDS: POTASSIUM CHLORIDE (SR) 20 MEQ TAB PO ×2 (09:17→21:17)
[2019-05-11] MEDS: DICLOFENAC SODIUM 1% GEL 100 GM TUBE TP ×4 (09:18→21:18)
[2019-05-11] MEDS: POLYETHYLENE GLYCOL 17 GM PACKET PO (12:21)
[2019-05-11] MEDS: ANASTROZOLE 1 MG TAB PO (18:29)
[2019-05-12] MEDS: DIPHENHYDRAMINE 25 MG CAP PO ×2 (00:19→23:57)
[2019-05-12] MEDS: PANTOPRAZOLE (EC) 40 MG TAB PO (05:17)
[2019-05-12] MEDS: METOLAZONE 2.5 MG TAB PO ×2 (05:18→17:56)
[2019-05-12 05:19] LABS: ADD MAN DIFF? NO
[2019-05-12 05:24] LABS: WHITE BLOOD COUNT 3.6 10^3/ul (4.8-10.8)
[2019-05-12 05:24] LABS: BASOPHILS % 0.8 % (0.0-2.0); EOSINOPHILS # 0.1 10^3/ul (0.0-0.5); EOSINOPHILS % 3.6 % (0.0-7.0); HEMATOCRIT 38.2 % (37.0-47.0); HEMOGLOBIN 12.5 g/dl (12.0-16.0); LYMPHOCYTES # 1.5 10^3/ul (0.8-2.9); LYMPHOCYTES % 42.9 % (15.0-51.0); MEAN CORPUSCULAR HEMOGLOBIN 32.6 pg (29.0-33.0); MEAN CORPUSCULAR HGB CONC 32.7 g/dl (32.0-37.0); MEAN CORPUSCULAR VOLUME 99.7 fl (82.0-101.0); MEAN PLATELET VOLUME 9.4 fl (7.4-10.4); MONOCYTE # 0.5 10^3/ul (0.3-0.9); MONOCYTES % 14.8 % (0.0-11.0); NEUTROPHIL # 1.4 10^3/ul (1.6-7.5); NEUTROPHILS % 37.9 % (39.0-77.0); PLATELET COUNT 145 10^3/UL (140-415); RED BLOOD COUNT 3.83 10^6/ul (4.20-5.40); RED CELL DISTRIBUTION WIDTH 13.4 % (11.5-14.5)
[2019-05-12 05:49] LABS: ANION GAP 8 (5-13); BLOOD UREA NITROGEN 26 mg/dl (7-20); CARBON DIOXIDE 33 mmol/L (21-31); CHLORIDE 98 mmol/L (97-110); Estimated GFR > 60 mL/min (>60); GLUCOSE 107 mg/dl (70-220); POTASSIUM 3.9 mmol/L (3.5-5.1); SODIUM 139 mmol/L (135-144)
[2019-05-12] MEDS: SPIRONOLACTONE 50 MG TAB PO (08:21)
[2019-05-12] MEDS: LORATADINE 10 MG TAB PO (08:21)
[2019-05-12] MEDS: POTASSIUM CHLORIDE (SR) 20 MEQ TAB PO ×2 (08:21→21:32)
[2019-05-12] MEDS: oxyCODONE (CR) 20 MG TAB [oxyCONTIN] PO ×2 (08:21→21:33)
[2019-05-12] MEDS: DOCUSATE SODIUM 100 MG CAP PO ×2 (08:21→21:32)
[2019-05-12] MEDS: POLYETHYLENE GLYCOL 17 GM PACKET PO (08:21)
[2019-05-12] MEDS: ESCITALOPRAM 10 MG TAB PO (08:22)
[2019-05-12] MEDS: BUMETANIDE 0.5 MG TAB PO (08:22)
[2019-05-12] MEDS: ANASTROZOLE 1 MG TAB PO (08:22)
[2019-05-12] MEDS: DICLOFENAC SODIUM 1% GEL 100 GM TUBE TP ×4 (08:23→21:36)
[2019-05-12] MEDS: NEOMYC/POLYMYX/HC 10 ML OTIC SUSP LEFT EAR (23:00)
[2019-05-13] MEDS: IBUPROFEN 400 MG TAB PO (02:07)
[2019-05-13] MEDS: PANTOPRAZOLE (EC) 40 MG TAB PO (06:17)
[2019-05-13] MEDS: METOLAZONE 2.5 MG TAB PO ×2 (06:19→17:33)
[2019-05-13] MEDS: POLYETHYLENE GLYCOL 17 GM PACKET PO (08:18)
[2019-05-13] MEDS: POTASSIUM CHLORIDE (SR) 20 MEQ TAB PO ×2 (08:18→21:03)
[2019-05-13] MEDS: BUMETANIDE 0.5 MG TAB PO (08:18)
[2019-05-13] MEDS: LORATADINE 10 MG TAB PO (08:18)
[2019-05-13] MEDS: DOCUSATE SODIUM 100 MG CAP PO ×2 (08:18→21:03)
[2019-05-13] MEDS: ESCITALOPRAM 10 MG TAB PO (08:18)
[2019-05-13] MEDS: SPIRONOLACTONE 50 MG TAB PO (08:18)
[2019-05-13] MEDS: oxyCODONE (CR) 20 MG TAB [oxyCONTIN] PO ×2 (08:19→21:03)
[2019-05-13] MEDS: ANASTROZOLE 1 MG TAB PO (08:20)
[2019-05-13] MEDS: NEOMYC/POLYMYX/HC 10 ML OTIC SUSP LEFT EAR ×3 (08:20→21:03)
[2019-05-13] MEDS: DICLOFENAC SODIUM 1% GEL 100 GM TUBE TP ×4 (08:21→21:04)
[2019-05-13] MEDS: morphine 2 MG INJ IV (22:33)
[2019-05-14] MEDS: PANTOPRAZOLE (EC) 40 MG TAB PO (05:54)
[2019-05-14] MEDS: METOLAZONE 2.5 MG TAB PO ×2 (05:54→18:22)
[2019-05-14] MEDS: NEOMYC/POLYMYX/HC 10 ML OTIC SUSP LEFT EAR ×3 (09:02→21:14)
[2019-05-14] MEDS: ANASTROZOLE 1 MG TAB PO (09:04)
[2019-05-14] MEDS: POTASSIUM CHLORIDE (SR) 20 MEQ TAB PO ×2 (09:06→21:15)
[2019-05-14] MEDS: ESCITALOPRAM 10 MG TAB PO (09:06)
[2019-05-14] MEDS: oxyCODONE (CR) 20 MG TAB [oxyCONTIN] PO ×2 (09:07→21:15)
[2019-05-14] MEDS: POLYETHYLENE GLYCOL 17 GM PACKET PO (09:15)
[2019-05-14] MEDS: BUMETANIDE 0.5 MG TAB PO (09:15)
[2019-05-14] MEDS: SPIRONOLACTONE 50 MG TAB PO (09:16)
[2019-05-14] MEDS: DICLOFENAC SODIUM 1% GEL 100 GM TUBE TP ×4 (09:17→21:15)
[2019-05-14] MEDS: LORATADINE 10 MG TAB PO (09:17)
[2019-05-14] MEDS: DOCUSATE SODIUM 100 MG CAP PO ×2 (09:19→21:14)
[2019-05-14] MEDS: ERGOCALCIFEROL 50,000 UNIT CAP PO (16:21)
[2019-05-15] MEDS: METOLAZONE 2.5 MG TAB PO ×2 (05:36→17:47)
[2019-05-15] MEDS: PANTOPRAZOLE (EC) 40 MG TAB PO (05:36)
[2019-05-15 05:39] LABS: ANION GAP 7 (5-13); BLOOD UREA NITROGEN 26 mg/dl (7-20); CALCIUM 7.8 mg/dl (8.4-10.2); CARBON DIOXIDE 31 mmol/L (21-31); CHLORIDE 101 mmol/L (97-110); Estimated GFR > 60 mL/min (>60); GLUCOSE 98 mg/dl (70-220); POTASSIUM 3.7 mmol/L (3.5-5.1); SODIUM 139 mmol/L (135-144)
[2019-05-15] MEDS: DICLOFENAC SODIUM 1% GEL 100 GM TUBE TP ×4 (08:56→20:45)
[2019-05-15] MEDS: NEOMYC/POLYMYX/HC 10 ML OTIC SUSP LEFT EAR ×3 (08:56→20:45)
[2019-05-15] MEDS: SPIRONOLACTONE 50 MG TAB PO (08:57)
[2019-05-15] MEDS: ESCITALOPRAM 10 MG TAB PO (08:57)
[2019-05-15] MEDS: BUMETANIDE 0.5 MG TAB PO (08:57)
[2019-05-15] MEDS: POTASSIUM CHLORIDE (SR) 20 MEQ TAB PO ×2 (08:57→20:45)
[2019-05-15] MEDS: LORATADINE 10 MG TAB PO (08:57)
[2019-05-15] MEDS: DOCUSATE SODIUM 100 MG CAP PO ×2 (08:57→20:45)
[2019-05-15] MEDS: POLYETHYLENE GLYCOL 17 GM PACKET PO (08:58)
[2019-05-15] MEDS: ANASTROZOLE 1 MG TAB PO (09:01)
[2019-05-15] MEDS: oxyCODONE (CR) 20 MG TAB [oxyCONTIN] PO ×2 (09:01→20:44)
[2019-05-15] MEDS: DIPHENHYDRAMINE 25 MG CAP PO (21:42)
[2019-05-16] MEDS: PANTOPRAZOLE (EC) 40 MG TAB PO (06:14)
[2019-05-16] MEDS: METOLAZONE 2.5 MG TAB PO ×2 (06:17→17:35)
[2019-05-16] MEDS: BUMETANIDE 0.5 MG TAB PO (08:19)
[2019-05-16] MEDS: LORATADINE 10 MG TAB PO (08:19)
[2019-05-16] MEDS: DOCUSATE SODIUM 100 MG CAP PO ×2 (08:19→21:29)
[2019-05-16] MEDS: SPIRONOLACTONE 50 MG TAB PO (08:19)
[2019-05-16] MEDS: DICLOFENAC SODIUM 1% GEL 100 GM TUBE TP ×4 (08:20→21:29)
[2019-05-16] MEDS: NEOMYC/POLYMYX/HC 10 ML OTIC SUSP LEFT EAR ×3 (08:20→21:29)
[2019-05-16] MEDS: oxyCODONE (CR) 20 MG TAB [oxyCONTIN] PO ×2 (08:20→21:30)
[2019-05-16] MEDS: POTASSIUM CHLORIDE (SR) 20 MEQ TAB PO ×2 (08:20→21:30)
[2019-05-16] MEDS: POLYETHYLENE GLYCOL 17 GM PACKET PO (08:20)
[2019-05-16] MEDS: ESCITALOPRAM 10 MG TAB PO (08:20)
[2019-05-16] MEDS: ANASTROZOLE 1 MG TAB PO (08:21)
[2019-05-16] MEDS: BUMETANIDE 1 MG TAB PO (15:41)
[2019-05-16] MEDS: AMPICILLIN/SULB 3 GM/NS (PMX) 100 ML IVPB (17:34)
[2019-05-17] MEDS: AMPICILLIN/SULB 3 GM/NS (PMX) 100 ML IVPB ×4 (00:50→18:27)
[2019-05-17] MEDS: PANTOPRAZOLE (EC) 40 MG TAB PO (05:43)
[2019-05-17] MEDS: METOLAZONE 2.5 MG TAB PO ×2 (05:45→17:42)
[2019-05-17] MEDS: DOCUSATE SODIUM 100 MG CAP PO ×2 (08:50→20:48)
[2019-05-17] MEDS: BUMETANIDE 0.5 MG TAB PO (08:50)
[2019-05-17] MEDS: ESCITALOPRAM 10 MG TAB PO (08:51)
[2019-05-17] MEDS: POTASSIUM CHLORIDE (SR) 20 MEQ TAB PO ×2 (08:51→20:50)
[2019-05-17] MEDS: LORATADINE 10 MG TAB PO (08:51)
[2019-05-17] MEDS: oxyCODONE (CR) 20 MG TAB [oxyCONTIN] PO ×2 (08:51→20:49)
[2019-05-17] MEDS: SPIRONOLACTONE 50 MG TAB PO (08:51)
[2019-05-17] MEDS: POLYETHYLENE GLYCOL 17 GM PACKET PO (08:52)
[2019-05-17] MEDS: NEOMYC/POLYMYX/HC 10 ML OTIC SUSP LEFT EAR ×3 (08:52→20:48)
[2019-05-17] MEDS: ANASTROZOLE 1 MG TAB PO (08:53)
[2019-05-17] MEDS: DICLOFENAC SODIUM 1% GEL 100 GM TUBE TP ×4 (08:58→20:48)
[2019-05-17 10:02] LABS: ADD MAN DIFF? NO
[2019-05-17 10:03] LABS: BASOPHIL # 0.1 10^3/ul (0.0-0.1); BASOPHILS % 1.1 % (0.0-2.0); EOSINOPHILS # 0.2 10^3/ul (0.0-0.5); EOSINOPHILS % 3.8 % (0.0-7.0); HEMATOCRIT 34.2 % (37.0-47.0); HEMOGLOBIN 11.6 g/dl (12.0-16.0); LYMPHOCYTES # 1.8 10^3/ul (0.8-2.9); LYMPHOCYTES % 38.7 % (15.0-51.0); MEAN CORPUSCULAR HGB CONC 33.9 g/dl (32.0-37.0); MEAN CORPUSCULAR VOLUME 97.4 fl (82.0-101.0); MEAN PLATELET VOLUME 9.2 fl (7.4-10.4); MONOCYTE # 0.7 10^3/ul (0.3-0.9); NEUTROPHILS % 42.2 % (39.0-77.0); PLATELET COUNT 172 10^3/UL (140-415); RED BLOOD COUNT 3.51 10^6/ul (4.20-5.40); RED CELL DISTRIBUTION WIDTH 13.2 % (11.5-14.5)
[2019-05-17 10:03] LABS: WHITE BLOOD COUNT 4.7 10^3/ul (4.8-10.8)
[2019-05-17 10:22] LABS: ANION GAP 7 (5-13); BLOOD UREA NITROGEN 32 mg/dl (7-20); CALCIUM 8.2 mg/dl (8.4-10.2); CARBON DIOXIDE 33 mmol/L (21-31); CHLORIDE 98 mmol/L (97-110); CREATININE 0.87 mg/dl (0.44-1.00); Estimated GFR > 60 mL/min (>60); GLUCOSE 114 mg/dl (70-220); POTASSIUM 3.4 mmol/L (3.5-5.1); SODIUM 138 mmol/L (135-144)
[2019-05-18] MEDS: AMPICILLIN/SULB 3 GM/NS (PMX) 100 ML IVPB ×5 (00:03→23:48)
[2019-05-18] MEDS: PANTOPRAZOLE (EC) 40 MG TAB PO (05:01)
[2019-05-18] MEDS: METOLAZONE 2.5 MG TAB PO ×2 (05:04→18:54)
[2019-05-18 05:29] LABS: ADD MAN DIFF? NO
[2019-05-18 05:37] LABS: BASOPHIL # 0.1 10^3/ul (0.0-0.1); BASOPHILS % 1.1 % (0.0-2.0); EOSINOPHILS # 0.2 10^3/ul (0.0-0.5); EOSINOPHILS % 4.5 % (0.0-7.0); HEMATOCRIT 32.5 % (37.0-47.0); HEMOGLOBIN 11.1 g/dl (12.0-16.0); LYMPHOCYTES % 44.2 % (15.0-51.0); MEAN CORPUSCULAR HEMOGLOBIN 33.2 pg (29.0-33.0); MEAN CORPUSCULAR HGB CONC 34.2 g/dl (32.0-37.0); MEAN CORPUSCULAR VOLUME 97.3 fl (82.0-101.0); MEAN PLATELET VOLUME 9.4 fl (7.4-10.4); MONOCYTE # 0.6 10^3/ul (0.3-0.9); MONOCYTES % 13.8 % (0.0-11.0); NEUTROPHIL # 1.6 10^3/ul (1.6-7.5); NEUTROPHILS % 36.2 % (39.0-77.0); PLATELET COUNT 168 10^3/UL (140-415); RED BLOOD COUNT 3.34 10^6/ul (4.20-5.40); RED CELL DISTRIBUTION WIDTH 13.2 % (11.5-14.5)
[2019-05-18 05:37] LABS: WHITE BLOOD COUNT 4.4 10^3/ul (4.8-10.8)
[2019-05-18 06:19] LABS: ANION GAP 6 (5-13); BLOOD UREA NITROGEN 33 mg/dl (7-20); CALCIUM 8.3 mg/dl (8.4-10.2); CARBON DIOXIDE 34 mmol/L (21-31); CHLORIDE 99 mmol/L (97-110); Estimated GFR > 60 mL/min (>60); GLUCOSE 116 mg/dl (70-220); POTASSIUM 3.8 mmol/L (3.5-5.1); SODIUM 139 mmol/L (135-144)
[2019-05-18] MEDS: SPIRONOLACTONE 50 MG TAB PO (09:24)
[2019-05-18] MEDS: POTASSIUM CHLORIDE (SR) 20 MEQ TAB PO ×2 (09:24→20:37)
[2019-05-18] MEDS: BUMETANIDE 0.5 MG TAB PO (09:24)
[2019-05-18] MEDS: ESCITALOPRAM 10 MG TAB PO (09:24)
[2019-05-18] MEDS: DOCUSATE SODIUM 100 MG CAP PO ×2 (09:25→20:37)
[2019-05-18] MEDS: LORATADINE 10 MG TAB PO (09:25)
[2019-05-18] MEDS: POLYETHYLENE GLYCOL 17 GM PACKET PO (09:25)
[2019-05-18] MEDS: DICLOFENAC SODIUM 1% GEL 100 GM TUBE TP ×4 (09:26→20:38)
[2019-05-18] MEDS: oxyCODONE (CR) 20 MG TAB [oxyCONTIN] PO ×2 (09:31→20:37)
[2019-05-18] MEDS: ANASTROZOLE 1 MG TAB PO (09:31)
[2019-05-19] MEDS: DIPHENHYDRAMINE 25 MG CAP PO ×2 (03:20→22:26)
[2019-05-19] MEDS: AMPICILLIN/SULB 3 GM/NS (PMX) 100 ML IVPB ×4 (05:38→23:59)
[2019-05-19] MEDS: METOLAZONE 2.5 MG TAB PO ×2 (05:39→18:09)
[2019-05-19] MEDS: PANTOPRAZOLE (EC) 40 MG TAB PO (05:39)
[2019-05-19] MEDS: SPIRONOLACTONE 50 MG TAB PO (08:48)
[2019-05-19] MEDS: BUMETANIDE 0.5 MG TAB PO (08:48)
[2019-05-19] MEDS: oxyCODONE (CR) 20 MG TAB [oxyCONTIN] PO ×2 (08:48→21:16)
[2019-05-19] MEDS: LORATADINE 10 MG TAB PO (08:48)
[2019-05-19] MEDS: ESCITALOPRAM 10 MG TAB PO (08:48)
[2019-05-19] MEDS: POTASSIUM CHLORIDE (SR) 20 MEQ TAB PO ×2 (08:48→21:15)
[2019-05-19] MEDS: DOCUSATE SODIUM 100 MG CAP PO ×2 (08:48→21:15)
[2019-05-19] MEDS: POLYETHYLENE GLYCOL 17 GM PACKET PO (08:49)
[2019-05-19] MEDS: DICLOFENAC SODIUM 1% GEL 100 GM TUBE TP ×4 (08:49→21:16)
[2019-05-19] MEDS: ANASTROZOLE 1 MG TAB PO (08:49)
[2019-05-20] MEDS: METOLAZONE 2.5 MG TAB PO ×2 (05:37→17:48)
[2019-05-20] MEDS: PANTOPRAZOLE (EC) 40 MG TAB PO ×2 (05:38→07:20)
[2019-05-20] MEDS: AMPICILLIN/SULB 3 GM/NS (PMX) 100 ML IVPB ×4 (05:38→23:47)
[2019-05-20] MEDS: LORATADINE 10 MG TAB PO (08:33)
[2019-05-20] MEDS: ESCITALOPRAM 10 MG TAB PO (08:33)
[2019-05-20] MEDS: BUMETANIDE 0.5 MG TAB PO (08:33)
[2019-05-20] MEDS: POLYETHYLENE GLYCOL 17 GM PACKET PO (08:34)
[2019-05-20] MEDS: oxyCODONE (CR) 20 MG TAB [oxyCONTIN] PO ×2 (08:34→21:05)
[2019-05-20] MEDS: POTASSIUM CHLORIDE (SR) 20 MEQ TAB PO ×2 (08:34→21:04)
[2019-05-20] MEDS: DOCUSATE SODIUM 100 MG CAP PO ×2 (08:34→21:05)
[2019-05-20] MEDS: SPIRONOLACTONE 50 MG TAB PO (08:34)
[2019-05-20] MEDS: ANASTROZOLE 1 MG TAB PO (08:35)
[2019-05-20] MEDS: DICLOFENAC SODIUM 1% GEL 100 GM TUBE TP ×4 (08:36→21:05)
[2019-05-20] MEDS: morphine 2 MG INJ IV (23:48)
[2019-05-21] MEDS: ZOLPIDEM 5 MG TAB PO (00:40)
[2019-05-21] MEDS: AMPICILLIN/SULB 3 GM/NS (PMX) 100 ML IVPB ×4 (05:46→23:53)
[2019-05-21] MEDS: METOLAZONE 2.5 MG TAB PO ×2 (05:46→16:50)
[2019-05-21] MEDS: PANTOPRAZOLE (EC) 40 MG TAB PO (05:47)
[2019-05-21] MEDS: SPIRONOLACTONE 50 MG TAB PO (08:53)
[2019-05-21] MEDS: LORATADINE 10 MG TAB PO (08:54)
[2019-05-21] MEDS: ESCITALOPRAM 10 MG TAB PO (08:54)
[2019-05-21] MEDS: BUMETANIDE 0.5 MG TAB PO (08:54)
[2019-05-21] MEDS: POTASSIUM CHLORIDE (SR) 20 MEQ TAB PO ×2 (08:55→20:49)
[2019-05-21] MEDS: DOCUSATE SODIUM 100 MG CAP PO ×2 (08:55→20:50)
[2019-05-21] MEDS: oxyCODONE (CR) 20 MG TAB [oxyCONTIN] PO ×2 (08:56→20:50)
[2019-05-21] MEDS: POLYETHYLENE GLYCOL 17 GM PACKET PO (08:59)
[2019-05-21] MEDS: DICLOFENAC SODIUM 1% GEL 100 GM TUBE TP ×4 (09:00→20:50)
[2019-05-21] MEDS: ANASTROZOLE 1 MG TAB PO (09:12)
[2019-05-21] MEDS: ERGOCALCIFEROL 50,000 UNIT CAP PO (16:50)
[2019-05-21] MEDS: morphine 2 MG INJ IV (23:54)
[2019-05-22 05:32] LABS: ANION GAP 7 (5-13); BLOOD UREA NITROGEN 29 mg/dl (7-20); CARBON DIOXIDE 31 mmol/L (21-31); CHLORIDE 100 mmol/L (97-110); CREATININE 0.86 mg/dl (0.44-1.00); Estimated GFR > 60 mL/min (>60); GLUCOSE 133 mg/dl (70-220); SODIUM 138 mmol/L (135-144)
[2019-05-22] MEDS: PANTOPRAZOLE (EC) 40 MG TAB PO (05:56)
[2019-05-22] MEDS: AMPICILLIN/SULB 3 GM/NS (PMX) 100 ML IVPB ×3 (05:56→18:18)
[2019-05-22] MEDS: METOLAZONE 2.5 MG TAB PO ×2 (05:58→18:23)
[2019-05-22] MEDS: POLYETHYLENE GLYCOL 17 GM PACKET PO (09:27)
[2019-05-22] MEDS: DOCUSATE SODIUM 100 MG CAP PO ×2 (09:27→20:36)
[2019-05-22] MEDS: LORATADINE 10 MG TAB PO (09:27)
[2019-05-22] MEDS: oxyCODONE (CR) 20 MG TAB [oxyCONTIN] PO ×2 (09:27→20:37)
[2019-05-22] MEDS: ESCITALOPRAM 10 MG TAB PO (09:27)
[2019-05-22] MEDS: SPIRONOLACTONE 50 MG TAB PO (09:27)
[2019-05-22] MEDS: BUMETANIDE 0.5 MG TAB PO (09:27)
[2019-05-22] MEDS: DICLOFENAC SODIUM 1% GEL 100 GM TUBE TP ×4 (09:30→20:40)
[2019-05-22] MEDS: POTASSIUM CHLORIDE (SR) 20 MEQ TAB PO ×2 (09:30→20:37)
[2019-05-22] MEDS: ANASTROZOLE 1 MG TAB PO (09:31)
[2019-05-23] MEDS: AMPICILLIN/SULB 3 GM/NS (PMX) 100 ML IVPB ×5 (00:11→23:01)
[2019-05-23] MEDS: morphine 2 MG INJ IV ×2 (00:18→22:54)
[2019-05-23] MEDS: DIPHENHYDRAMINE 25 MG CAP PO (02:45)
[2019-05-23] MEDS: PANTOPRAZOLE (EC) 40 MG TAB PO (05:36)
[2019-05-23] MEDS: METOLAZONE 2.5 MG TAB PO ×2 (05:36→17:24)
[2019-05-23] MEDS: oxyCODONE (CR) 20 MG TAB [oxyCONTIN] PO ×2 (08:36→20:14)
[2019-05-23] MEDS: LORATADINE 10 MG TAB PO (08:36)
[2019-05-23] MEDS: ESCITALOPRAM 10 MG TAB PO (08:36)
[2019-05-23] MEDS: DOCUSATE SODIUM 100 MG CAP PO ×2 (08:36→20:13)
[2019-05-23] MEDS: BUMETANIDE 0.5 MG TAB PO ×2 (08:36→16:10)
[2019-05-23] MEDS: POTASSIUM CHLORIDE (SR) 20 MEQ TAB PO ×2 (08:37→20:13)
[2019-05-23] MEDS: SPIRONOLACTONE 50 MG TAB PO (08:37)
[2019-05-23] MEDS: DICLOFENAC SODIUM 1% GEL 100 GM TUBE TP ×4 (08:37→20:14)
[2019-05-23] MEDS: POLYETHYLENE GLYCOL 17 GM PACKET PO (08:37)
[2019-05-23] MEDS: ANASTROZOLE 1 MG TAB PO (08:38)
[2019-05-23 10:14] LABS: ALANINE AMINOTRANSFERASE 48 IU/L (13-69); ALBUMIN 3.1 g/dl (3.3-4.9); ALKALINE PHOSPHATASE 105 IU/L (42-121); ASPARTATE AMINO TRANSFERASE 42 IU/L (15-46); BILIRUBIN,INDIRECT 0.4 mg/dl (0-1.1); BILIRUBIN,TOTAL 0.4 mg/dl (0.2-1.3); TOTAL PROTEIN 6.3 g/dl (6.1-8.1)
[2019-05-23 11:06] LABS: CALCIUM 8.3 mg/dl (8.4-10.2)
[2019-05-23] MEDS: LIDOCAINE 1% (MPF) 5 ML VIAL (11:24)
[2019-05-23] MEDS: ONDANSETRON 4 MG INJ IV (20:26)
[2019-05-24] MEDS: PANTOPRAZOLE (EC) 40 MG TAB PO (05:10)
[2019-05-24] MEDS: AMPICILLIN/SULB 3 GM/NS (PMX) 100 ML IVPB ×4 (05:10→20:36)
[2019-05-24] MEDS: METOLAZONE 2.5 MG TAB PO ×2 (05:11→17:41)
[2019-05-24 05:53] LABS: ANION GAP 8 (5-13); BLOOD UREA NITROGEN 27 mg/dl (7-20); CALCIUM 8.2 mg/dl (8.4-10.2); CARBON DIOXIDE 34 mmol/L (21-31); CHLORIDE 97 mmol/L (97-110); Estimated GFR > 60 mL/min (>60); GLUCOSE 106 mg/dl (70-220); POTASSIUM 3.9 mmol/L (3.5-5.1); SODIUM 139 mmol/L (135-144)
[2019-05-24] MEDS: LORATADINE 10 MG TAB PO (08:51)
[2019-05-24] MEDS: ESCITALOPRAM 10 MG TAB PO (08:51)
[2019-05-24] MEDS: POTASSIUM CHLORIDE (SR) 20 MEQ TAB PO ×2 (08:51→20:36)
[2019-05-24] MEDS: SPIRONOLACTONE 50 MG TAB PO (08:52)
[2019-05-24] MEDS: DOCUSATE SODIUM 100 MG CAP PO ×2 (08:52→20:36)
[2019-05-24] MEDS: ANASTROZOLE 1 MG TAB PO (08:53)
[2019-05-24] MEDS: POLYETHYLENE GLYCOL 17 GM PACKET PO (08:54)
[2019-05-24] MEDS: oxyCODONE (CR) 20 MG TAB [oxyCONTIN] PO ×2 (08:54→20:37)
[2019-05-24] MEDS: DICLOFENAC SODIUM 1% GEL 100 GM TUBE TP ×4 (08:54→20:39)
[2019-05-24] MEDS: BUMETANIDE 0.5 MG TAB PO ×2 (08:57→14:52)
[2019-05-24] MEDS ORDERED: BUMETANIDE 0.5 MG TAB PO (09:00)
[2019-05-24] MEDS: LIDOCAINE 1% (MPF) 5 ML VIAL (12:27)
[2019-05-24 15:24] LABS: TOTAL PROTEIN 6.2 g/dl (6.1-8.1)
[2019-05-24] MEDS: (Nursing Note) XX ×2 (18:00→20:39)
[2019-05-25] MEDS: AMPICILLIN/SULB 3 GM/NS (PMX) 100 ML IVPB ×5 (00:30→23:53)
[2019-05-25] MEDS: morphine 2 MG INJ IV (01:51)
[2019-05-25 05:18] LABS: ADD MAN DIFF? NO
[2019-05-25 05:24] LABS: WHITE BLOOD COUNT 5.8 10^3/ul (4.8-10.8)
[2019-05-25 05:24] LABS: BASOPHILS % 0.5 % (0.0-2.0); EOSINOPHILS # 0.1 10^3/ul (0.0-0.5); EOSINOPHILS % 2.4 % (0.0-7.0); HEMATOCRIT 30.5 % (37.0-47.0); HEMOGLOBIN 10.5 g/dl (12.0-16.0); LYMPHOCYTES # 1.7 10^3/ul (0.8-2.9); LYMPHOCYTES % 29.9 % (15.0-51.0); MEAN CORPUSCULAR HEMOGLOBIN 33.5 pg (29.0-33.0); MEAN CORPUSCULAR HGB CONC 34.4 g/dl (32.0-37.0); MEAN CORPUSCULAR VOLUME 97.4 fl (82.0-101.0); MEAN PLATELET VOLUME 9.3 fl (7.4-10.4); MONOCYTE # 0.6 10^3/ul (0.3-0.9); MONOCYTES % 10.7 % (0.0-11.0); NEUTROPHIL # 3.3 10^3/ul (1.6-7.5); NEUTROPHILS % 56.2 % (39.0-77.0); PLATELET COUNT 143 10^3/UL (140-415); RED BLOOD COUNT 3.13 10^6/ul (4.20-5.40); RED CELL DISTRIBUTION WIDTH 12.9 % (11.5-14.5)
[2019-05-25] MEDS: PANTOPRAZOLE (EC) 40 MG TAB PO (05:40)
[2019-05-25] MEDS: METOLAZONE 2.5 MG TAB PO ×2 (05:43→18:32)
[2019-05-25 05:50] LABS: ANION GAP 5 (5-13); BLOOD UREA NITROGEN 28 mg/dl (7-20); CALCIUM 7.7 mg/dl (8.4-10.2); CARBON DIOXIDE 37 mmol/L (21-31); CHLORIDE 95 mmol/L (97-110); CREATININE 0.79 mg/dl (0.44-1.00); Estimated GFR > 60 mL/min (>60); GLUCOSE 103 mg/dl (70-220); POTASSIUM 3.4 mmol/L (3.5-5.1); SODIUM 137 mmol/L (135-144)
[2019-05-25] MEDS: POTASSIUM CHLORIDE (SR) 20 MEQ TAB PO ×2 (08:15→20:50)
[2019-05-25] MEDS: SPIRONOLACTONE 50 MG TAB PO (08:15)
[2019-05-25] MEDS: BUMETANIDE 0.5 MG TAB PO ×2 (08:16→14:03)
[2019-05-25] MEDS: DOCUSATE SODIUM 100 MG CAP PO ×2 (08:16→20:50)
[2019-05-25] MEDS: oxyCODONE (CR) 20 MG TAB [oxyCONTIN] PO ×2 (08:17→20:51)
[2019-05-25] MEDS: POLYETHYLENE GLYCOL 17 GM PACKET PO (08:17)
[2019-05-25] MEDS: LORATADINE 10 MG TAB PO (08:17)
[2019-05-25] MEDS: DICLOFENAC SODIUM 1% GEL 100 GM TUBE TP ×4 (08:18→20:51)
[2019-05-25] MEDS: ESCITALOPRAM 10 MG TAB PO (08:18)
[2019-05-25] MEDS: ANASTROZOLE 1 MG TAB PO (08:23)
[2019-05-25] MEDS: (Nursing Note) XX ×2 (08:24→21:00)
[2019-05-25] MEDS ORDERED: CEPASTAT LOZENGE MT (16:00)
[2019-05-26] MEDS: morphine 2 MG INJ IV ×2 (00:02→23:51)
[2019-05-26 05:50] LABS: ADD MAN DIFF? NO
[2019-05-26 05:59] LABS: WHITE BLOOD COUNT 6.1 10^3/ul (4.8-10.8)
[2019-05-26 05:59] LABS: BASOPHILS % 0.7 % (0.0-2.0); EOSINOPHILS # 0.2 10^3/ul (0.0-0.5); EOSINOPHILS % 3.5 % (0.0-7.0); HEMATOCRIT 32.6 % (37.0-47.0); HEMOGLOBIN 11.1 g/dl (12.0-16.0); LYMPHOCYTES # 1.9 10^3/ul (0.8-2.9); LYMPHOCYTES % 30.8 % (15.0-51.0); MEAN PLATELET VOLUME 9.6 fl (7.4-10.4); MONOCYTE # 0.8 10^3/ul (0.3-0.9); MONOCYTES % 12.5 % (0.0-11.0); NEUTROPHIL # 3.2 10^3/ul (1.6-7.5); NEUTROPHILS % 52.2 % (39.0-77.0); PLATELET COUNT 163 10^3/UL (140-415); RED BLOOD COUNT 3.36 10^6/ul (4.20-5.40); RED CELL DISTRIBUTION WIDTH 12.9 % (11.5-14.5)
[2019-05-26] MEDS: AMPICILLIN/SULB 3 GM/NS (PMX) 100 ML IVPB ×4 (06:15→23:46)
[2019-05-26] MEDS: METOLAZONE 2.5 MG TAB PO ×2 (06:18→17:44)
[2019-05-26 06:45] LABS: ANION GAP 5 (5-13); BLOOD UREA NITROGEN 27 mg/dl (7-20); CALCIUM 8.3 mg/dl (8.4-10.2); CARBON DIOXIDE 35 mmol/L (21-31); CHLORIDE 97 mmol/L (97-110); CREATININE 0.79 mg/dl (0.44-1.00); Estimated GFR > 60 mL/min (>60); GLUCOSE 94 mg/dl (70-220); POTASSIUM 3.5 mmol/L (3.5-5.1); SODIUM 137 mmol/L (135-144)
[2019-05-26] MEDS: (Nursing Note) XX ×2 (09:00→21:00)
[2019-05-26] MEDS: LORATADINE 10 MG TAB PO (09:38)
[2019-05-26] MEDS: ESCITALOPRAM 10 MG TAB PO (09:38)
[2019-05-26] MEDS: SPIRONOLACTONE 50 MG TAB PO (09:38)
[2019-05-26] MEDS: DOCUSATE SODIUM 100 MG CAP PO ×2 (09:38→21:47)
[2019-05-26] MEDS: POTASSIUM CHLORIDE (SR) 20 MEQ TAB PO ×2 (09:39→21:48)
[2019-05-26] MEDS: oxyCODONE (CR) 20 MG TAB [oxyCONTIN] PO ×2 (09:39→21:47)
[2019-05-26] MEDS: POLYETHYLENE GLYCOL 17 GM PACKET PO (09:40)
[2019-05-26] MEDS: DICLOFENAC SODIUM 1% GEL 100 GM TUBE TP ×4 (09:40→21:51)
[2019-05-26] MEDS: ANASTROZOLE 1 MG TAB PO (09:40)
[2019-05-26] MEDS: PANTOPRAZOLE (EC) 40 MG TAB PO (09:46)
[2019-05-26] MEDS: BUMETANIDE 0.5 MG TAB PO ×2 (09:46→13:51)
[2019-05-26] MEDS: FLUCONAZOLE 100 MG TAB PO (12:28)
[2019-05-27] MEDS: AMPICILLIN/SULB 3 GM/NS (PMX) 100 ML IVPB ×3 (04:53→18:09)
[2019-05-27] MEDS: METOLAZONE 2.5 MG TAB PO ×2 (04:59→18:09)
[2019-05-27] MEDS: PANTOPRAZOLE (EC) 40 MG TAB PO (04:59)
[2019-05-27 05:08] LABS: ADD MAN DIFF? NO
[2019-05-27 05:13] LABS: BASOPHIL # 0.1 10^3/ul (0.0-0.1); BASOPHILS % 0.7 % (0.0-2.0); EOSINOPHILS # 0.3 10^3/ul (0.0-0.5); EOSINOPHILS % 3.7 % (0.0-7.0); HEMATOCRIT 34.8 % (37.0-47.0); HEMOGLOBIN 11.8 g/dl (12.0-16.0); LYMPHOCYTES # 2.4 10^3/ul (0.8-2.9); LYMPHOCYTES % 34.7 % (15.0-51.0); MEAN CORPUSCULAR HEMOGLOBIN 33.1 pg (29.0-33.0); MEAN CORPUSCULAR HGB CONC 33.9 g/dl (32.0-37.0); MEAN CORPUSCULAR VOLUME 97.8 fl (82.0-101.0); MEAN PLATELET VOLUME 9.1 fl (7.4-10.4); MONOCYTE # 0.9 10^3/ul (0.3-0.9); MONOCYTES % 12.2 % (0.0-11.0); NEUTROPHIL # 3.4 10^3/ul (1.6-7.5); NEUTROPHILS % 48.6 % (39.0-77.0); PLATELET COUNT 195 10^3/UL (140-415); RED BLOOD COUNT 3.56 10^6/ul (4.20-5.40); RED CELL DISTRIBUTION WIDTH 12.7 % (11.5-14.5)
[2019-05-27 05:41] LABS: ANION GAP 7 (5-13); BLOOD UREA NITROGEN 33 mg/dl (7-20); CALCIUM 8.8 mg/dl (8.4-10.2); CARBON DIOXIDE 35 mmol/L (21-31); CHLORIDE 96 mmol/L (97-110); CREATININE 0.87 mg/dl (0.44-1.00); Estimated GFR > 60 mL/min (>60); GLUCOSE 101 mg/dl (70-220); POTASSIUM 4.3 mmol/L (3.5-5.1); SODIUM 138 mmol/L (135-144)
[2019-05-27] MEDS: (Nursing Note) XX ×2 (09:00→20:47)
[2019-05-27] MEDS: BUMETANIDE 0.5 MG TAB PO ×2 (09:19→14:43)
[2019-05-27] MEDS: ESCITALOPRAM 10 MG TAB PO (09:19)
[2019-05-27] MEDS: LORATADINE 10 MG TAB PO (09:21)
[2019-05-27] MEDS: FLUCONAZOLE 100 MG TAB PO (09:21)
[2019-05-27] MEDS: DOCUSATE SODIUM 100 MG CAP PO ×2 (09:21→20:44)
[2019-05-27] MEDS: POTASSIUM CHLORIDE (SR) 20 MEQ TAB PO ×2 (09:21→20:45)
[2019-05-27] MEDS: oxyCODONE (CR) 20 MG TAB [oxyCONTIN] PO ×2 (09:22→20:44)
[2019-05-27] MEDS: SPIRONOLACTONE 50 MG TAB PO (09:22)
[2019-05-27] MEDS: POLYETHYLENE GLYCOL 17 GM PACKET PO (09:23)
[2019-05-27] MEDS: DICLOFENAC SODIUM 1% GEL 100 GM TUBE TP ×4 (09:23→20:47)
[2019-05-27] MEDS: ANASTROZOLE 1 MG TAB PO (09:26)
[2019-05-28] MEDS: AMPICILLIN/SULB 3 GM/NS (PMX) 100 ML IVPB ×2 (00:07→06:03)
[2019-05-28] MEDS: PANTOPRAZOLE (EC) 40 MG TAB PO (06:03)
[2019-05-28] MEDS: METOLAZONE 2.5 MG TAB PO ×2 (06:05→17:17)
[2019-05-28] MEDS: BUMETANIDE 0.5 MG TAB PO (08:00)
[2019-05-28] MEDS: (Nursing Note) XX ×2 (09:00→21:00)
[2019-05-28] MEDS: FLUCONAZOLE 100 MG TAB PO (09:34)
[2019-05-28] MEDS: ESCITALOPRAM 10 MG TAB PO (09:34)
[2019-05-28] MEDS: SPIRONOLACTONE 50 MG TAB PO (09:34)
[2019-05-28] MEDS: LORATADINE 10 MG TAB PO (09:34)
[2019-05-28] MEDS: POTASSIUM CHLORIDE (SR) 20 MEQ TAB PO ×2 (09:34→21:40)
[2019-05-28] MEDS: POLYETHYLENE GLYCOL 17 GM PACKET PO (09:35)
[2019-05-28] MEDS: DOCUSATE SODIUM 100 MG CAP PO ×2 (09:35→21:40)
[2019-05-28] MEDS: ANASTROZOLE 1 MG TAB PO (09:36)
[2019-05-28] MEDS: oxyCODONE (CR) 20 MG TAB [oxyCONTIN] PO ×2 (09:38→21:41)
[2019-05-28] MEDS: DICLOFENAC SODIUM 1% GEL 100 GM TUBE TP ×4 (09:38→21:43)
[2019-05-28] MEDS: ACETAZOLAMIDE 500 MG INJ IV (09:47)
[2019-05-28] MEDS: CEPASTAT LOZENGE MT ×10 (14:37→23:00)
[2019-05-28] MEDS: ERGOCALCIFEROL 50,000 UNIT CAP PO (17:13)
[2019-05-29 05:00] LABS: ADD MAN DIFF? NO
[2019-05-29 05:03] LABS: WHITE BLOOD COUNT 5.8 10^3/ul (4.8-10.8)
[2019-05-29 05:03] LABS: BASOPHIL # 0.1 10^3/ul (0.0-0.1); EOSINOPHILS # 0.2 10^3/ul (0.0-0.5); EOSINOPHILS % 4.1 % (0.0-7.0); HEMATOCRIT 33.2 % (37.0-47.0); HEMOGLOBIN 10.9 g/dl (12.0-16.0); LYMPHOCYTES # 2.1 10^3/ul (0.8-2.9); LYMPHOCYTES % 35.4 % (15.0-51.0); MEAN CORPUSCULAR HGB CONC 32.8 g/dl (32.0-37.0); MEAN CORPUSCULAR VOLUME 100.6 fl (82.0-101.0); MEAN PLATELET VOLUME 9.3 fl (7.4-10.4); MONOCYTE # 0.9 10^3/ul (0.3-0.9); MONOCYTES % 15.3 % (0.0-11.0); NEUTROPHIL # 2.6 10^3/ul (1.6-7.5); PLATELET COUNT 201 10^3/UL (140-415); RED CELL DISTRIBUTION WIDTH 13.2 % (11.5-14.5)
[2019-05-29 05:35] LABS: ANION GAP 8 (5-13); BLOOD UREA NITROGEN 32 mg/dl (7-20); CALCIUM 8.7 mg/dl (8.4-10.2); CARBON DIOXIDE 30 mmol/L (21-31); CHLORIDE 100 mmol/L (97-110); CREATININE 1.05 mg/dl (0.44-1.00); Estimated GFR 54 mL/min (>60); GLUCOSE 126 mg/dl (70-220); PHOSPHORUS 5.9 mg/dl (2.5-4.9); POTASSIUM 3.8 mmol/L (3.5-5.1); SODIUM 138 mmol/L (135-144)
[2019-05-29] MEDS: PANTOPRAZOLE (EC) 40 MG TAB PO (05:55)
[2019-05-29] MEDS: METOLAZONE 2.5 MG TAB PO ×2 (05:56→18:45)
[2019-05-29] MEDS: CEPASTAT LOZENGE MT (06:02)
[2019-05-29] MEDS: ESCITALOPRAM 10 MG TAB PO (08:49)
[2019-05-29] MEDS: oxyCODONE (CR) 20 MG TAB [oxyCONTIN] PO (08:50)
[2019-05-29] MEDS: SPIRONOLACTONE 50 MG TAB PO (08:50)
[2019-05-29] MEDS: FLUCONAZOLE 100 MG TAB PO (08:50)
[2019-05-29] MEDS: DOCUSATE SODIUM 100 MG CAP PO (08:50)
[2019-05-29] MEDS: POTASSIUM CHLORIDE (SR) 20 MEQ TAB PO (08:50)
[2019-05-29] MEDS: ANASTROZOLE 1 MG TAB PO (08:53)
[2019-05-29] MEDS: ACETAZOLAMIDE 500 MG INJ IV (08:55)
[2019-05-29] MEDS: DICLOFENAC SODIUM 1% GEL 100 GM TUBE TP ×3 (08:56→18:46)
[2019-05-29] MEDS: POLYETHYLENE GLYCOL 17 GM PACKET PO (08:56)
[2019-05-29] MEDS: LORATADINE 10 MG TAB PO (08:56)
[2019-05-29] MEDS: (Nursing Note) XX (09:00)
[2019-05-29] MEDS: HEPARIN (100 UNITS/ML) 5 ML SYG CATHETER (18:47)
== END 2019-05-29 19:26 | DRG 291 ==
LOC: MS1 03-29 16:35 → E/R 14:47 → TEL 03-29 16:38 → MS1 03-29 16:45 → TEL 17:39
PROVIDERS: Internal Medicine
PROC: 0W9B3ZZ Drainage of Left Pleural Cavity, Percutaneous Approach (ICD-10-PCS; 2019-03-26)
PROC: 0W9B3ZZ Drainage of Left Pleural Cavity, Percutaneous Approach (ICD-10-PCS; 2019-03-30)
PROC: 0W9B3ZX Drainage of Left Pleural Cavity, Percutaneous Approach, Diagnostic (ICD-10-PCS; principal; 2019-04-04)
PROC: 0W9B3ZX Drainage of Left Pleural Cavity, Percutaneous Approach, Diagnostic (ICD-10-PCS; 2019-04-11)
PROC: 0W9B3ZX Drainage of Left Pleural Cavity, Percutaneous Approach, Diagnostic (ICD-10-PCS; 2019-04-28)
PROC: 0W9B3ZX Drainage of Left Pleural Cavity, Percutaneous Approach, Diagnostic (ICD-10-PCS; 2019-04-29)
DX: I11.0 Hypertensive heart disease with heart failure (principal); J96.01 Acute respiratory failure with hypoxia; S52.612A Displaced fracture of left ulna styloid process, initial encounter for closed fracture; S52.572A Other intraarticular fracture of lower end of left radius, initial encounter for closed fracture; C78.7 Secondary malignant neoplasm of liver and intrahepatic bile duct; C78.00 Secondary malignant neoplasm of unspecified lung; C79.51 Secondary malignant neoplasm of bone; L03.114 Cellulitis of left upper limb; N17.9 Acute kidney failure, unspecified; E87.3 Alkalosis; Z68.41 Body mass index [BMI] 40.0-44.9, adult; I31.3 Pericardial effusion (noninflammatory); M84.58XA Pathological fracture in neoplastic disease, other specified site, initial encounter for fracture; C50.912 Malignant neoplasm of unspecified site of left female breast; I50.33 Acute on chronic diastolic (congestive) heart failure; R42 Dizziness and giddiness; H70.93 Unspecified mastoiditis, bilateral; F41.9 Anxiety disorder, unspecified; F43.10 Post-traumatic stress disorder, unspecified; G89.4 Chronic pain syndrome; E87.6 Hypokalemia; D72.819 Decreased white blood cell count, unspecified; J40 Bronchitis, not specified as acute or chronic; E88.09 Other disorders of plasma-protein metabolism, not elsewhere classified; E66.9 Obesity, unspecified; W01.0XXA Fall on same level from slipping, tripping and stumbling without subsequent striking against object, initial encounter; D63.8 Anemia in other chronic diseases classified elsewhere; J02.9 Acute pharyngitis, unspecified
CPT/HCPCS: 36415; 70450; 71045; 71046; 71260; 71275; 72170; 73090; 73100; 73110-LT; 73510; 73562; 74177; 76604; 76942; 80048; 80053; 80076; 82042; 82150; 82306; 82310; 82330; 82378; 83540; 83605; 83615; 83735; 83880; 83970; 83986; 84100; 84132; 84155; 84484; 85025; 85048; 85610; 85730; 86300; 86304; 87040-91; 87045; 87070; 87081; 87086; 87102; 87116; 88104; 88305; 88341; 88342; 89051; 93005; 93308; 93970; 94640; 94664; 96374; 97110; 97116; 97162; 97530; 99285-25; J2430